=== PATIENT | male | born 1955 | race Caucasian/White ===

== ENCOUNTER 2020-04-10 12:53 | Outpatient (REF) | payer MEDICARE, MEDICAID, SELFPAY ==
--- NOTE | 2020-04-10 13:17 | XR_ITS ---
EXAMINATION: XR HIP, RIGHT Pelvis CLINICAL INFORMATION: Pain in the right hip COMPARISON: None TECHNIQUE: 2 views of the right hip and single view the pelvis FINDINGS: Right hip: Femoral acetabular joint is normal. Surrounding bone normal. Arterial calcification. Pelvis: The remaining bone and joints in the pelvis are normal. Arterial calcification is noted throughout. Surgical clips overlie the soft tissues distal to the left hip joint. XR/XR hip RT w PEL1V IMPRESSION: Right hip joint within normal limits. Bony pelvis unremarkable. Calcific atherosclerotic disease.
[2020-04-10 17:05] LABS: Blood Urea Nitrogen 27 mg/dL (9-16); Estimated Glomerular Filt Rate 55
== END 2020-04-10 12:54 | disposition home or self-care (01) ==
LOC: HO.HMGCX 12:53
PROVIDERS: PCP Internal Medicine; Visit Provider Nurse Practitioner Family
DX: M25.551 Pain in right hip (principal); R10.30 Lower abdominal pain, unspecified
CPT/HCPCS: 36415; 73502; 82565; 84520

== ENCOUNTER 2020-04-11 10:27 | Outpatient (REF) | payer MEDICARE, MEDICAID, SELFPAY ==
--- NOTE | 2020-04-11 10:29 | CT_ITS ---
EXAMINATION: CT ABDOMEN AND PELVIS WITHOUT CONTRAST CLINICAL INFORMATION: Lower abdominal pain COMPARISON: None TECHNIQUE: Multidetector volumetric imaging was performed from the superior aspect of the liver through the pubic symphysis. Sagittal and coronal reformatted images were obtained on the technologist's workstation. This CT examination was performed using dose optimization techniques as appropriate, variously including the following: *Automated exposure control *Adjustment of mA and/or kV according to patient size (this includes techniques or standardized protocols for targeted exams where dose is matched to indication/reason for exam; i.e. extremities or head) *Use of iterative reconstruction technique DLP: 6-0 mGy-cm FINDINGS: LUNG BASES: There is a 3 mm peripheral or subpleural left lower lobe nodule axial image 10 series 3. The lung bases are otherwise clear. LIVER, GALLBLADDER, AND BILIARY TREE: The liver is cirrhotic. There is a 5 mm low-attenuation lesion in the peripheral right lobe of the liver axial image 23 series. There are gallstones in the gallbladder. There is no biliary duct dilatation. PANCREAS: Unremarkable. SPLEEN: The spleen is enlarged measuring 15 cm in length. ADRENAL GLANDS: Unremarkable. KIDNEYS AND URETERS: There are multiple bilateral renal cysts. Largest cyst measures 4 x 5 cm in the upper pole of the left kidney. There are bilateral renal calcifications probably representing vascular calcifications. There is question of a small right renal artery aneurysm in the renal hilum measuring 1 cm. BLADDER: Unremarkable. GASTROINTESTINAL TRACT: The small and large bowel are unremarkable. The appendix is unremarkable. ABDOMINAL WALL: No significant hernia is appreciated. LYMPH NODES: No enlarged lymph nodes are seen. There is shotty retroperitoneal lymphadenopathy in the abdomen and pelvis and bilateral inguinal lymphadenopathy, left greater than right. VASCULAR: There are multiple varices. There is evidence of severe atherosclerotic disease. There is ectasia of the lower abdominal aorta measuring 2.6 cm. There is ectasia or small aneurysm of the right common iliac artery measuring 1.8 cm. PELVIC VISCERA: Unremarkable. OSSEOUS STRUCTURES: Unremarkable. CT/CT abdomen pelvis wo con IMPRESSION: Cirrhotic-appearing liver. 5 mm low-attenuation lesion in the right lobe of the liver. Further characterization with MRI recommended. Splenomegaly and varices. No ascites. Gallstones. Severe atherosclerotic disease. Ectasia of the lower abdominal aorta. Question small aneurysms of the right common iliac and right renal arteries. Bilateral renal cysts.
== END 2020-04-11 10:28 | disposition home or self-care (01) ==
LOC: HO.CT 10:27
PROVIDERS: Visit Provider Nurse Practitioner Family
DX: R10.30 Lower abdominal pain, unspecified (principal)
CPT/HCPCS: 74176

== ENCOUNTER → 2020-09-06 13:37 | Outpatient (BNVA) | payer MEDICARE, SELFPAY | PROVIDERS: PCP Internal Medicine; Visit Provider Hospitalist | DX: J96.01 Acute respiratory failure with hypoxia (principal); J84.9 Interstitial pulmonary disease, unspecified; J44.9 Chronic obstructive pulmonary disease, unspecified; B94.8 Sequelae of other specified infectious and parasitic diseases | CPT/HCPCS: 99202 ==

== ENCOUNTER 2020-09-25 13:44 | Outpatient (REF) | payer MEDICARE, SELFPAY ==
--- NOTE | 2020-09-25 | PFT_ITS ---
Forced vital capacity and FEV1 are moderately decreased. FEV1/FVC ratio is normal. AXD99-81 is normal. MVV slightly decreased. Post bronchodilator therapy, there is no significant change. Total lung capacity and residual volume are moderately decreased. Diffusion capacity is moderately decreased. CONCLUSION: These findings are consistent with moderately severe restrictive pulmonary disorder. No evidence of any obstructive airway disorder. Clinical correlation is recommended. Moris Roberts MD MSViktoria/MODL / [phone]
== END 2020-09-25 13:45 | disposition home or self-care (01) ==
LOC: HO.RESP 13:44
PROVIDERS: PCP Internal Medicine; Visit Provider Hospitalist
DX: J96.91 Respiratory failure, unspecified with hypoxia (principal)
CPT/HCPCS: 94060; 94727; 94729

== ENCOUNTER → 2020-10-05 13:51 | Outpatient (BNVA) | payer MEDICARE, SELFPAY | PROVIDERS: PCP Internal Medicine; Visit Provider Hospitalist | DX: J84.9 Interstitial pulmonary disease, unspecified (principal); J44.9 Chronic obstructive pulmonary disease, unspecified; B94.8 Sequelae of other specified infectious and parasitic diseases | CPT/HCPCS: 99212 ==

== ENCOUNTER 2020-10-08 10:32 | Outpatient (REF) | payer MEDICARE, SELFPAY ==
[2020-10-08 11:55] LABS: Hematocrit 35.8 % (42-52); Hemoglobin 12.1 g/dl (14.0-18.0); Mean Corpuscular HGB Conc 33.8 g/dl (31.0-36.0); Mean Corpuscular Hemoglobin 30.4 pg (27.0-33.0); Mean Corpuscular Volume 89.9 fL (80-98); Mean Platelet Volume 11.9 fL (9.4-12.4); Red Blood Count 3.98 X10*6/uL (4.60-5.80); Red Cell Distribution Width 14.1 % (11.0-16.0); White Blood Count 2.9 X10*3/uL (4.8-10.8)
[2020-10-08 12:28] LABS: Alanine Aminotransferase 46 U/L (0-40); Albumin Level 3.6 g/dL (3.5-5.0); Alkaline Phosphatase 159 U/L (39-117); Anion Gap 11 (12-20); Aspartate Amino Transferase 38 U/L (5-37); Bilirubin Total 1.1 mg/dL (0.0-1.0); Blood Urea Nitrogen 19 mg/dL (9-16); Calcium 9.1 mg/dL (8.4-10.2); Carbon Dioxide 26 mmol/L (22-29); Chloride 107 mmol/L (96-108); Cholesterol 122 mg/dL; Estimated Glomerular Filt Rate > 60; Glucose Fasting 126 mg/dL (60-99); HDL Cholesterol 33 mg/dL; LDL Cholesterol Calculated 72 mg/dl; Potassium 4.1 mmol/L (3.3-5.1); Sodium 140 mmol/L (135-145); Total Protein 6.5 g/dL (6.5-8.0); Triglycerides 89 mg/dL
[2020-10-08 13:39] LABS: Platelet Count 47 X10*3/uL (160-400)
== END 2020-10-08 10:33 | disposition home or self-care (01) ==
LOC: HO.HMGCLDS 10:32
PROVIDERS: PCP Internal Medicine; Visit Provider Internal Medicine
DX: I73.9 Peripheral vascular disease, unspecified (principal); I10 Essential (primary) hypertension; E78.5 Hyperlipidemia, unspecified; F32.9 Major depressive disorder, single episode, unspecified; K74.60 Unspecified cirrhosis of liver; S22.49XA Multiple fractures of ribs, unspecified side, initial encounter for closed fracture; S92.901A Unspecified fracture of right foot, initial encounter for closed fracture; X58.XXXA Exposure to other specified factors, initial encounter; Y93.9 Activity, unspecified; Y92.9 Unspecified place or not applicable; Y99.9 Unspecified external cause status
CPT/HCPCS: 36415; 80053; 80061; 85027

== ENCOUNTER 2020-10-12 13:22 | Outpatient (REF) | payer OTHER, SELFPAY ==
--- NOTE | ~2020-10-12 | XR_ITS ---
EXAMINATION: XR CHEST CLINICAL INFORMATION: Interstitial pulmonary disease. COMPARISON: None TECHNIQUE: 2 views of the chest were obtained. FINDINGS: The lungs are somewhat expanded with increase interstitial markings. No consolidation or pleural effusion seen. The heart size and pulmonary vascular are normal. No gross bony abnormality seen. XR/XR chest 2V IMPRESSION: Prominent interstitial markings likely interstitial pneumonitis or mild congestion.
== END 2020-10-12 13:23 | disposition home or self-care (01) ==
LOC: HO.XRAY 13:22
PROVIDERS: PCP Internal Medicine; Visit Provider Hospitalist
DX: B94.8 Sequelae of other specified infectious and parasitic diseases (principal); J84.9 Interstitial pulmonary disease, unspecified; J44.9 Chronic obstructive pulmonary disease, unspecified
CPT/HCPCS: 71046

== ENCOUNTER → 2021-01-01 14:00 | Outpatient (BNVA) | payer OTHER, SELFPAY | PROVIDERS: PCP Internal Medicine; Visit Provider Hospitalist | DX: J84.9 Interstitial pulmonary disease, unspecified (principal); J44.9 Chronic obstructive pulmonary disease, unspecified; B94.8 Sequelae of other specified infectious and parasitic diseases | CPT/HCPCS: 90686; 99212 ==

== ENCOUNTER 2021-03-11 10:46 | Outpatient (REF) | payer OTHER, SELFPAY | END 2021-03-11 10:47 | disposition home or self-care (01) | LOC: HO.LAB 10:46 | PROVIDERS: PCP Internal Medicine; Visit Provider Nurse Practitioner Family | DX: M54.50 Low back pain, unspecified (principal); M47.816 Spondylosis without myelopathy or radiculopathy, lumbar region; M51.36 Other intervertebral disc degeneration, lumbar region; M46.1 Sacroiliitis, not elsewhere classified; I10 Essential (primary) hypertension | CPT/HCPCS: 99202 ==

== ENCOUNTER → 2021-03-25 09:40 | Outpatient (REF) | payer OTHER, SELFPAY ==
--- NOTE | 2021-03-25 10:45 | ECG_ITS ---
Test Reason : Z91.89 Blood Pressure : / mmHG Vent. Rate : 069 BPM Atrial Rate : 069 BPM P-R Int : 112 ms QRS Dur : 122 ms QT Int : 446 ms P-R-T Axes : 054 -08 036 degrees QTc Int : 477 ms Normal sinus rhythm Possible Left atrial enlargement Right bundle branch block Abnormal ECG No previous ECGs available Referred By: Dominga Murphy Electronically Signed By:Param Rawls
== END ==
LOC: HO.CARD 09:40
PROVIDERS: PCP Internal Medicine; Visit Provider Nurse Practitioner Family
DX: I45.10 Unspecified right bundle-branch block (principal); I10 Essential (primary) hypertension; E78.5 Hyperlipidemia, unspecified; M46.1 Sacroiliitis, not elsewhere classified; M51.36 Other intervertebral disc degeneration, lumbar region; M54.50 Low back pain, unspecified; M47.816 Spondylosis without myelopathy or radiculopathy, lumbar region; Z91.89 Other specified personal risk factors, not elsewhere classified; Z83.3 Family history of diabetes mellitus; Z88.6 Allergy status to analgesic agent; Z88.8 Allergy status to other drugs, medicaments and biological substances
CPT/HCPCS: 93005; 99212

== ENCOUNTER 2021-04-16 09:40 | Outpatient (REF) | payer OTHER, SELFPAY ==
[2021-04-16 11:33] LABS: Estimated Average Glucose 117 mg/dL; Hemoglobin A1c % 5.7 %
[2021-04-16 12:14] LABS: Alanine Aminotransferase 32 U/L (0-40); Albumin Level 3.5 g/dL (3.5-5.0); Alkaline Phosphatase 152 U/L (39-117); Anion Gap 10 (12-20); Aspartate Amino Transferase 44 U/L (5-37); Bilirubin Total 1.6 mg/dL (0.0-1.0); Blood Urea Nitrogen 24 mg/dL (9-16); Calcium 8.9 mg/dL (8.4-10.2); Carbon Dioxide 30 mmol/L (22-29); Chloride 106 mmol/L (96-108); Cholesterol 99 mg/dL; Estimated Glomerular Filt Rate 41; Glucose Fasting 112 mg/dL (60-99); HDL Cholesterol 24 mg/dL; LDL Cholesterol Calculated 55 mg/dl; Potassium 4.7 mmol/L (3.3-5.1); Sodium 141 mmol/L (135-145); Total Protein 6.6 g/dL (6.5-8.0); Triglycerides 104 mg/dL
[2021-04-16 12:19] LABS: Creatinine Urine 212.06 mg/dL
[2021-04-16 12:37] LABS: Microalbum/Creatinine Ratio Ur 344.2 ug/mg cr
[2021-04-16 13:21] LABS: Free T4 (Free Thyroxine) 0.76 ng/dL (0.71-1.85)
== END 2021-04-16 09:41 | disposition home or self-care (01) ==
LOC: HO.LAB 09:40
PROVIDERS: Absent Provider Internal Medicine; PCP Internal Medicine; Visit Provider Nurse Practitioner Family
DX: Z00.00 Encounter for general adult medical examination without abnormal findings (principal); M46.1 Sacroiliitis, not elsewhere classified; M51.36 Other intervertebral disc degeneration, lumbar region; M54.50 Low back pain, unspecified; M47.816 Spondylosis without myelopathy or radiculopathy, lumbar region; I45.10 Unspecified right bundle-branch block; Z91.89 Other specified personal risk factors, not elsewhere classified
CPT/HCPCS: 36415; 80053; 80061; 82043; 83036; 84439; 84443; 99212

== ENCOUNTER → 2021-05-13 09:00 | Outpatient (BNVA) | payer OTHER, SELFPAY | PROVIDERS: PCP Internal Medicine; Visit Provider Nurse Practitioner Family | DX: Z51.81 Encounter for therapeutic drug level monitoring (principal); F11.20 Opioid dependence, uncomplicated; M51.36 Other intervertebral disc degeneration, lumbar region; M54.50 Low back pain, unspecified; M47.816 Spondylosis without myelopathy or radiculopathy, lumbar region | CPT/HCPCS: 99212 ==

== ENCOUNTER → 2021-06-10 09:12 | Outpatient (BNVA) | payer OTHER, SELFPAY | PROVIDERS: PCP Internal Medicine; Referring Provider Internal Medicine; Visit Provider Internal Medicine | DX: Z51.81 Encounter for therapeutic drug level monitoring (principal); F11.20 Opioid dependence, uncomplicated; M51.36 Other intervertebral disc degeneration, lumbar region; M54.50 Low back pain, unspecified; M47.816 Spondylosis without myelopathy or radiculopathy, lumbar region; I45.10 Unspecified right bundle-branch block; I73.9 Peripheral vascular disease, unspecified; R07.2 Precordial pain | CPT/HCPCS: 99202; 99212 ==

== ENCOUNTER → 2021-07-24 09:25 | Outpatient (REF) | payer OTHER, SELFPAY ==
--- NOTE | ~2021-07-24 | NM_ITS ---
Lexiscan Myocardial perfusion study Indication: Chest pain, abnormal EKG Technique: The patient was brought in for a Lexiscan perfusion study on 07/24/2021 and was injected 0.4 mg of Lexiscan intravenously. Within a minute of this injection 30 mCi of sestamibi was given intravenously. Images were obtained using the SPECT gamma camera interlaced with the gating device. Images were obtained in supine position. Resting perfusion study was performed on 07/26/2021. Patient was administered 30 mCi of sestamibi intravenously at rest. Images were then obtained in supine position. Total DLP 106mGy-cm. Images were processed with the software and compared side to side in short axis, horizontal long axis and vertical long axis views. Findings: Raw acquisition reviewed. The stress perfusion study showed 07/24/2021. The gated study shows normal LV systolic function with calculated LVEF of 66%. LV cavity is normal in size. The gated study shows normal wall thickening and contraction of segments. Resting study shows 07/26/2021. Gating at rest reveals normal wall motion with ejection fraction at 67%. The findings are consistent with no reversible or fixed perfusion defects. NM/NM cardiolite stress test Impression: 1. Myocardial perfusion imaging study shows normal myocardial perfusion. 2. Gated LVEF is 66% during stress and 67% during rest. 3. Transient ischemic dilatation not present. EKG component of the test reported separately.
--- NOTE | 2021-07-24 09:28 | CA_ITS ---
Acquisition Time: 2021-07-24 09:29:48 Total Exercise Time: 00:02:00 Test Indications: Abnormal ECG Medications: NSAIDS TYLENOL LOSARTAN Protocol: LEXISCAN Max HR: 065 BPM 41% of Pred: 156 BPM Max BP: 122/070 mmHG Max Work Load: 1.0 METS Pharmacological stress test with Lexiscan injection, while sitting and kicking his legs, without anginal symptoms, without arrythmia, with normotensive response to injection, with nondiagnostic EKG for ischemia. Nuclear images pending. Test reviewed with Dr Coffman. Referred By: Anthony Coffman Overread By: JAGUAR BLACK
== END ==
LOC: HO.CARD 09:25
PROVIDERS: PCP Internal Medicine; Visit Provider Internal Medicine
DX: R07.2 Precordial pain (principal)
CPT/HCPCS: 78452; 93017; A9500; J0280; J2785

== ENCOUNTER → 2021-09-05 12:10 | Outpatient (REF) | payer OTHER, SELFPAY ==
--- NOTE | 2021-09-05 12:13 | CA_ITS ---
Transthoracic Echocardiogram Patient (Last, First, Middle): Lucien Rowland, Gender: Male Date of : 1955 Age: 65 Procedure Date: 09/05/2021 Procedure Type: Transthoracic Echocardiogram Location: OP Height: 175.26 cm Weight: 95.26 kg BSA: 2.11 m2 Heart Rate: bpm BP: 135 / 80 mmHg Load Mixer: TO Referring MD: Anthony Coffman MD Symptoms: R07.2 - Precordial pain Study Quality: Fair ECG Rhythm: Sinus Conclusions: - The left ventricular systolic function is normal. The calculated ejection fraction is 64% by biplane method. - Evidence suggests grade II (moderate) diastolic dysfunction. - The left atrium is severely dilated. - There is mild calcification of the aortic valve. - There is moderate mitral annular calcification. - There is mild to moderate tricuspid valve regurgitation. - Moderate pulmonary hypertension is present. Findings Left Ventricle Normal left ventricular cavity size. There is mildly increased left ventricular wall thickness. The left ventricular systolic function is normal. The calculated ejection fraction is 64% by biplane method. There is no evidence of regional wall motion abnormalities. E/E prime ratio is >15, consistent with elevated filling pressures. Evidence suggests grade II (moderate) diastolic dysfunction. There is moderate septal asymmetric hypertrophy. Right Ventricle Normal right ventricular cavity size and systolic function. Atria The left atrium is severely dilated. The right atrium is normal in size. Aortic Valve There is a normal trileaflet aortic valve. There is mild calcification of the aortic valve. There is no aortic valve stenosis. There is no aortic valve regurgitation. Mitral Valve There is moderate mitral annular calcification. There is trace mitral valve regurgitation. Mean gradient of 4 mm Hg across the mitral valve at 61/Min. Cannot exclude mild mitral stenosis. Pulmonic Valve The pulmonic valve is likely normal. There is trace to mild pulmonic valve regurgitation. Tricuspid Valve Normal tricuspid valve structure. There is mild to moderate tricuspid valve regurgitation. The right ventricular systolic pressure is 59 mmHg. Moderate pulmonary hypertension is present. Great Vessels The asc aorta is normal in size. Venous The inferior vena cava is dilated and collapses less than 50% with inspiration. Pericardium/Pleural There is no evidence of pericardial effusion. Prior Study Comparison Changes noted compared to prior study dated: 04/30/2018. Progression of diastolic dysfunction. Increase in atrial size. Pulmonary hypertension present. Measurements 2D Linear Measurements IVSd: 1.41 0.6-0.9/0.6-1.0 cm LVIDd: 4.20 3.9-5.3/4.2-5.9 cm LVIDd Index: 1.99 2.4-3.2/2.2-3.1 cm/m2 LVIDs: 2.96 2.0-3.6 cm LVPWd: 1.07 0.7-1.1 cm LA Diam: 4.70 2.7-3.8/3.0-4.0 cm LAIDs Index: 2.23 1.5-2.3 cm/m2 LV Mass: 232.95 67-162/88-224 g LV Mass Index: 110.40 43-95/49-115 g/m2 LVOT Diam: 2.30 3.0+(-)1.3 cm 2D Systolic Function EF 4C: 62.70 >55% EF 2C: 63.50 >55% EF BiP: 63.60 >55% Mitral Valve MV VTI: 0.53 MV Pk Paxton: 1.51 MV Mn Paxton: 0.86 MV Pk Grad: 9.00 MV Mn Grad: 4.00 MV Pk E: 1.34 MV PK A: 1.16 MV Decel Time: 319.00 E/A: 1.20 E'Lateral: 6.42 E'Medial: 6.31 E/E' Med: 21.20 E/E' Lat: 20.90 PHT: 93.00 MVA PHT: 2.37 MVA Continuity: 2.22 Decel Peach: 4.20 Aortic Valve AoV Pk Paxton: 1.64 AoV Mn Paxton: 1.10 AoV VTI: 0.39 AoV Pk Grad: 11.00 Aov Mn Grad: 5.00 TUSHAR Cont.VTI: 2.97 LVOT LVOT Pk Paxton: 1.21 LVOT Mn Paxton: 0.75 LVOT VTI: 0.28 LVOT Pk Grad: 6.00 LVOT Mn Grad: 3.00 LVOT Diam: 2.30 LVOT Area: 4.15 Diastolic Function MV Pk E: 1.34 MV Pk A: 1.16 E/A: 1.20 E'Medial: 6.31 E/E' Med: 21.20 E' Laterial: 6.42 E/E' Lat: 20.90 Right Ventricle TAPSE (mm): 28.20 TVS' Paxton: 13.20 Tricuspid Valve TR Pk Paxton: 3.33 TR Pk Grad: 44.00 RA Press: 15.00 RVSP: 59.00 Great Vessels Aorta Sinus of Valsalva: 2.30 2.0-3.[address] Ridge: 2.75 1.7-3.4 cm Ao Asc: 3.60 2.1-3.[address] Pk Paxton: 1.60 Updated in Other Vendor System with Status of Final Anthony Coffman MD electronically signed on 09/07/2021 11:45:48 AM with status of Final
== END ==
LOC: HO.CARD 12:10
PROVIDERS: PCP Internal Medicine; Visit Provider Internal Medicine
DX: R07.2 Precordial pain (principal)
CPT/HCPCS: 93306

== ENCOUNTER → 2021-09-10 12:32 | Outpatient (BNVA) | payer OTHER, SELFPAY | PROVIDERS: PCP Internal Medicine; Referring Provider Internal Medicine; Visit Provider Nurse Practitioner Family | DX: R07.2 Precordial pain (principal); I45.10 Unspecified right bundle-branch block; I10 Essential (primary) hypertension; I73.9 Peripheral vascular disease, unspecified; E78.5 Hyperlipidemia, unspecified; Z79.82 Long term (current) use of aspirin; Z79.899 Other long term (current) drug therapy | CPT/HCPCS: 99212 ==

== ENCOUNTER 2021-09-18 12:37 | Outpatient (REF) | payer OTHER, SELFPAY ==
[2021-09-18 13:59] LABS: Hematocrit 33.9 % (42.0-52.0); Hemoglobin 11.7 g/dl (14.0-18.0); Mean Corpuscular HGB Conc 34.5 g/dl (31.0-36.0); Mean Corpuscular Hemoglobin 31.9 pg (27.0-33.0); Mean Corpuscular Volume 92.4 fL (80.0-98.0); Red Blood Count 3.67 X10*6/uL (4.60-5.80); Red Cell Distribution Width 15.2 % (11.0-16.0); White Blood Count 2.9 X10*3/uL (4.8-10.8)
[2021-09-18 14:01] LABS: Platelet Count 50 X10*3/uL (160-400)
[2021-09-18 14:11] LABS: Alanine Aminotransferase 26 U/L (0-40); Albumin Level 3.8 g/dL (3.5-5.0); Alkaline Phosphatase 143 U/L (39-117); Anion Gap 11 (12-20); Aspartate Amino Transferase 33 U/L (5-37); Bilirubin Total 1.2 mg/dL (0.0-1.0); Blood Urea Nitrogen 20 mg/dL (9-16); Calcium 8.9 mg/dL (8.4-10.2); Carbon Dioxide 25 mmol/L (22-29); Chloride 111 mmol/L (96-108); Cholesterol 128 mg/dL; Estimated Glomerular Filt Rate 49; Glucose Fasting 143 mg/dL (60-99); HDL Cholesterol 36 mg/dL; LDL Cholesterol Calculated 75 mg/dl; Potassium 4.9 mmol/L (3.3-5.1); Sodium 142 mmol/L (135-145); Total Protein 6.8 g/dL (6.5-8.0); Triglycerides 85 mg/dL
[2021-09-18 14:13] LABS: Estimated Average Glucose 108 mg/dL; Hemoglobin A1c % 5.4 %
== END 2021-09-18 12:38 | disposition home or self-care (01) ==
LOC: HO.HMGCLDS 12:37
PROVIDERS: PCP Internal Medicine; Visit Provider Internal Medicine
DX: I12.9 Hypertensive chronic kidney disease with stage 1 through stage 4 chronic kidney disease, or unspecified chronic kidney disease (principal); N18.4 Chronic kidney disease, stage 4 (severe); K74.60 Unspecified cirrhosis of liver
CPT/HCPCS: 36415; 80053; 80061; 83036; 85027

== ENCOUNTER 2022-04-14 09:13 | Outpatient (REF) | payer OTHER, SELFPAY ==
[2022-04-14 12:07] LABS: Estimated Average Glucose 108 mg/dL; Hemoglobin A1c % 5.4 %
[2022-04-14 12:20] LABS: Microalbum/Creatinine Ratio Ur 165.9 ug/mg cr
[2022-04-14 12:30] LABS: Alanine Aminotransferase 44 U/L (0-40); Albumin Level 3.6 g/dL (3.5-5.0); Alkaline Phosphatase 159 U/L (39-117); Anion Gap 10 (12-20); Aspartate Amino Transferase 45 U/L (5-37); Bilirubin Total 1.5 mg/dL (0.0-1.0); Blood Urea Nitrogen 20 mg/dL (9-16); Calcium 8.7 mg/dL (8.4-10.2); Carbon Dioxide 25 mmol/L (22-29); Chloride 111 mmol/L (96-108); Cholesterol 96 mg/dL; Estimated Glomerular Filt Rate 51; Glucose Fasting 133 mg/dL (60-99); HDL Cholesterol 23 mg/dL; LDL Cholesterol Calculated 50 mg/dl; Potassium 4.1 mmol/L (3.3-5.1); Sodium 142 mmol/L (135-145); Total Protein 6.5 g/dL (6.5-8.0); Triglycerides 118 mg/dL
== END 2022-04-14 09:14 | disposition home or self-care (01) ==
LOC: HO.HMGCLDS 09:13
PROVIDERS: PCP Internal Medicine; Visit Provider Internal Medicine
DX: D61.818 Other pancytopenia (principal); E78.5 Hyperlipidemia, unspecified; I10 Essential (primary) hypertension; R73.9 Hyperglycemia, unspecified
CPT/HCPCS: 36415; 80053; 80061; 82043; 83036

== ENCOUNTER 2022-10-13 09:42 | Outpatient (AMB) | payer MEDICARE, MEDICAID, SELFPAY ==
[2022-10-13 10:01] VITALS: BP 114/66; PULSE 58; O2SAT 97; BMI 33.2
--- NOTE | 2022-10-13 10:01 | A.OFFPC_ITS ---
Vital Signs 10/13/22 10:01 Height 5 ft 9 in Weight 225 lb BMI 33.2 BP 114/66 Blood Pressure Location Rt brachial Position Sitting Pulse 58 Pulse Source Pulse Oximeter Pulse Oximetry (%) 97 Oxygen Delivery Method Room Air Intake Visit Reasons: PE Intake Note: Pt is here today for PE. Pt states that he has been getting headaches and feeling dizzy. Pt also states that he gets pain in his lower back. Allergies acetaminophen [Tylenol] Allergy (Severe, Verified 10/13/22 10:09) Rash and Hives losartan Allergy (Severe, Verified 10/13/22 10:09) Rash and Hives Motrin Allergy (Severe, Uncoded 10/13/22 10:09) Rash and Hives Medication List - Last Reconciled 10/13/22 by Suzna Briscoe MD albuterol sulfate 90 mcg/actuation 1 inh inhalation QID PRN allopurinol 300 mg PO DAILY amlodipine 5 mg PO DAILY aspirin (Adult Aspirin Regimen) 81 mg PO DAILY atorvastatin 20 mg PO DAILY cane As directed citalopram 40 mg PO DAILY docusate sodium (Colace) 100 mg PO DAILY metoprolol tartrate 150 mg (1.5 x 100 mg) PO BID omeprazole 20 mg PO DAILY rifaximin 550 mg PO BID Tobacco use date assessed: 10/13/22 Dental Screening Dental Screen Date: 10/13/22 Did you have a dental visit in the last 12 months?: Yes Did you have a dental problem in the last 6 months where you did not have access to dental care?: No Was dental information given to patient?: Patient has dentist HPI PE HPI Details Pt presents for PE. Pt c/o positional vertigo and headache for 2 weeks. Pt was found to have 2 new masses on the liver and f/u with GI re: liver tranplant. 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 PVD (peripheral vascular disease) Respiratory failure with hypoxia Ribs, multiple fractures Surgical History H/O colonoscopy History of esophagogastroduodenoscopy (EGD) History of surgery on wrist Family History Father Diabetes mellitus Mother Diabetes mellitus Social History Household Members: Other Household Members Other:: friend Housing: Apartment Patient Tobacco Use Status: Former Tobacco user Tobacco use type: Cigarette e-Cigarette/Vaping Use: Never Used service: No Current occupational status: disabled Cognitive needs: No Hearing needs: No Vision needs: Yes Questionnaire Thrive Questionnaire Date Thrive assessed: 04/14/22 JUAN-7 AMB Questionnaire JUAN-7 Date JUAN - 7 assessed: 04/14/22 Source: Developed by Drs. Eric Fernando, Maame Bansal, Ousmane Bassett and colleagues, with an educational sandro from [employer]. Review of Systems Const All systems reviewed & are unremarkable except as noted in HPI and below Reports no additional complaints Eyes Reports no additional complaints ENT Reports no additional complaints Card Reports no additional complaints Resp Reports no additional complaints GI Reports no additional complaints Reports no additional complaints Physical exam (Primary Care) Vital Signs: Last Vital Signs Pulse 58 10/13/22 10:01 BP 114/66 10/13/22 10:01 Pulse Ox 97 10/13/22 10:01 Oxygen Delivery Method Room Air 10/13/22 10:01 BMI result Body Mass Index 33.2 Tobacco/Smoking Status: Tobacco use Status Tobacco use date assessed 10/13/22 10/13/22 10:12 Patient Tobacco Use Status Former Tobacco user 10/13/22 10:03 Tobacco use type Cigarette 10/13/22 10:03 e-Cigarette/Vaping Use Never Used 10/13/22 10:03 Thrive Assessment: Date of Thrive Assessment Date Thrive assessed 04/14/22 10/13/22 10:03 Const General: no acute distress HENMT Head: Yes normal to inspection Ears: hearing grossly normal bilaterally Face and sinus: Yes normal facial exam Mouth: Normal oral and palatal mucosa present Throat: Yes posterior oropharynx normal Eyes General: appearance normal, both eyes and all related structures Neck Neck: Yes no lymphadenopathy and Yes supple Resp Effort & Inspection: normal respiratory effort Auscultation: clear to auscultation bilaterally Cardio Rhythm: regular rhythm Heart sounds: S1 normal heart sound present and S2 normal heart sound present GI Inspection: Yes normal to inspection Palpation (GI): Soft to palpation Percussion: Yes normal to percussion Auscultation: normal bowel sounds Assessment and Plan Assessment & Plan (1) Hyperglycemia: Code(s): R73.9 - Hyperglycemia, unspecified Plan: cont ADA diet, check A1C (2) Annual physical exam: Code(s): Z00.00 - Encounter for general adult medical examination without abnormal findings Plan: well balanced diet, regular exercise, (3) Asthma-COPD overlap syndrome: Comment: Mild albuterol p.r.n. Code(s): J44.9 - Chronic obstructive pulmonary disease, unspecified (4) Chronic kidney disease, stage 4 (severe): Comment: f/u with nephrology Code(s): N18.4 - Chronic kidney disease, stage 4 (severe) (5) Liver cirrhosis: Comment: etho, ex IVDA, MRI abd 08/2022 2 liver masses, f/u GI, ?liver transplant Code(s): K74.60 - Unspecified cirrhosis of liver (6) Hypertension: Code(s): I10 - Essential (primary) hypertension Plan: cont Amlodipine (7) Vertigo: Code(s): R42 - Dizziness and giddiness Plan: try Meclizine, if persist vestibular therapy Orders: Orders Comprehensive [place]. Panel Fast Today I10 - Essential (primary) hypertension, J44.9 - Chronic obstructive pulmonary disease, unspecified, K74.60 - Unspecified cirrhosis of liver, N18.4 - Chronic kidney disease, stage 4 (severe), R73.9 - Hyperglycemia, unspecified, Z00.00 - Encounter for general adult medical examination without abnormal findings Complete Blood Count Auto Diff Today I10 - Essential (primary) hypertension, J44.9 - Chronic obstructive pulmonary disease, unspecified, K74.60 - Unspecified cirrhosis of liver, N18.4 - Chronic kidney disease, stage 4 (severe), R73.9 - Hyperglycemia, unspecified, Z00.00 - Encounter for general adult medical examination without abnormal findings IRON PROFILE Today I10 - Essential (primary) hypertension, J44.9 - Chronic obstructive pulmonary disease, unspecified, K74.60 - Unspecified cirrhosis of liver, N18.4 - Chronic kidney disease, stage 4 (severe), R73.9 - Hyperglycemia, unspecified, Z00.00 - Encounter for general adult medical examination without abnormal findings Hemoglobin A1c Today I10 - Essential (primary) hypertension, J44.9 - Chronic obstructive pulmonary disease, unspecified, K74.60 - Unspecified cirrhosis of liver, N18.4 - Chronic kidney disease, stage 4 (severe), R73.9 - Hyperglycemia, unspecified, Z00.00 - Encounter for general adult medical examination without abnormal findings Ammonia Today I10 - Essential (primary) hypertension, J44.9 - Chronic obstructive pulmonary disease, unspecified, K74.60 - Unspecified cirrhosis of liver, N18.4 - Chronic kidney disease, stage 4 (severe), R73.9 - Hyperglycemia, unspecified, Z00.00 - Encounter for general adult medical examination without abnormal findings Medications: New meclizine 25 mg PO BID PRN 30 tabs 0RF dizziness Discontinued meloxicam Discontinued Reason: Doctor's Order 15 mg PO DAILY 14 tabs 0RF Coding Level of Care Code Est Pt Prev Care >65y(24734) Diagnoses Hyperglycemia R73.9 Annual physical exam Z00.00 Asthma-COPD overlap syndrome J44.9 Chronic kidney disease, stage 4 (severe) N18.4 Liver cirrhosis K74.60 Hypertension I10 Vertigo R42
== END 2022-10-13 11:05 | disposition home or self-care (01) ==
PROVIDERS: PCP Internal Medicine; Visit Provider Internal Medicine
DX: Z00.00 Encounter for general adult medical examination without abnormal findings (principal); J44.9 Chronic obstructive pulmonary disease, unspecified; N18.4 Chronic kidney disease, stage 4 (severe); K74.60 Unspecified cirrhosis of liver; R73.9 Hyperglycemia, unspecified; I12.9 Hypertensive chronic kidney disease with stage 1 through stage 4 chronic kidney disease, or unspecified chronic kidney disease; R42 Dizziness and giddiness
CPT/HCPCS: 99397

== ENCOUNTER 2022-10-17 11:50 | Outpatient (REF) | payer MEDICARE, MEDICAID, SELFPAY ==
[2022-10-17 12:14] LABS: Ammonia 92 umol/L (13-55)
[2022-10-17 13:23] LABS: Eosinophils Absolute Auto 0.1 X10*3/uL (0.0-0.4); Hemoglobin 12.2 g/dl (14.0-18.0); Lymphocytes Percent Auto 31.2 % (20-40)
[2022-10-17 13:25] LABS: Basophils Percent Auto 0.3 % (0-2); Eosinophils Percent Auto 2.7 % (0-4); Hematocrit 34.8 % (42.0-52.0); Imm Gran Abs Auto 0.03 X10*3/uL (0.00-0.03); Imm Gran Pct Auto 0.8 % (0.0-0.4); Lymphocytes Absolute Auto 1.2 X10*3/uL (1.2-4.9); Mean Corpuscular HGB Conc 35.1 g/dl (31.0-36.0); Mean Corpuscular Hemoglobin 31.4 pg (27.0-33.0); Mean Corpuscular Volume 89.7 fL (80.0-98.0); Mean Platelet Volume 11.4 fL (9.4-12.4); Monocytes Absolute Auto 0.4 X10*3/uL (0.1-1.2); Monocytes Percent Auto 11.7 % (2-11); Neutrophils Percent Auto 53.3 % (45-73); Red Blood Count 3.88 X10*6/uL (4.60-5.80)
[2022-10-17 13:27] LABS: Platelet Count 44 X10*3/uL (160-400); White Blood Count 3.8 X10*3/uL (4.8-10.8)
[2022-10-17 14:53] LABS: Alanine Aminotransferase 36 U/L (0-40); Albumin Level 3.7 g/dL (3.5-5.0); Alkaline Phosphatase 144 U/L (39-117); Anion Gap 12 (12-20); Aspartate Amino Transferase 40 U/L (5-37); Bilirubin Total 1.5 mg/dL (0.0-1.0); Blood Urea Nitrogen 26 mg/dL (9-16); Calcium 9.5 mg/dL (8.4-10.2); Carbon Dioxide 25 mmol/L (22-29); Chloride 107 mmol/L (96-108); Estimated Glomerular Filt Rate 37; Glucose Fasting 118 mg/dL (60-99); Iron 93 mcg/dL (45-160); Percent Iron Saturation 39 % (15-50); Potassium 4.5 mmol/L (3.3-5.1); Sodium 139 mmol/L (135-145); Total Iron Binding Capacity 240 mcg/dL (228-428); Total Protein 7.2 g/dL (6.5-8.0); Unsaturated Iron Binding 147 ug/dL
[2022-10-18 03:27] LABS: Estimated Average Glucose 105 mg/dL; Hemoglobin A1c % 5.3 %
== END 2022-10-17 11:51 | disposition home or self-care (01) ==
LOC: HO.LAB 11:50
PROVIDERS: PCP Internal Medicine; Visit Provider Internal Medicine
DX: Z00.00 Encounter for general adult medical examination without abnormal findings (principal); J44.9 Chronic obstructive pulmonary disease, unspecified; I12.9 Hypertensive chronic kidney disease with stage 1 through stage 4 chronic kidney disease, or unspecified chronic kidney disease; K74.60 Unspecified cirrhosis of liver; N18.4 Chronic kidney disease, stage 4 (severe); R73.9 Hyperglycemia, unspecified
CPT/HCPCS: 36415; 80053; 82140; 83036; 83540; 85025; 93005; 99212

== ENCOUNTER 2022-10-17 12:42 | Outpatient (AMB) | payer MEDICARE, MEDICAID, SELFPAY ==
--- NOTE | 2022-10-17 13:33 | A.OFFVIS_ITS ---
Intake Vital Signs 10/17/22 13:34 Height 5 ft 9 in Weight 220 lb 7.396 oz BMI 32.6 BP 115/60 Blood Pressure Location Lt brachial Position Sitting Pulse 55 Intake Visit Reasons: 1 year f/up Intake Note: 1 year f/u Unit Coordinator Required: No Allergies acetaminophen [Tylenol] Allergy (Severe, Verified 10/17/22 13:43) Rash and Hives losartan Allergy (Severe, Verified 10/17/22 13:43) Rash and Hives Motrin Allergy (Severe, Uncoded 10/13/22 10:09) Rash and Hives Medication List - Last Reconciled 10/17/22 by Lisette Yeager [employer]-C albuterol sulfate 90 mcg/actuation 1 inh inhalation QID PRN allopurinol 300 mg PO DAILY amlodipine 5 mg PO DAILY aspirin (Adult Aspirin Regimen) 81 mg PO DAILY atorvastatin 20 mg PO DAILY cane As directed citalopram 40 mg PO DAILY meclizine 25 mg PO BID PRN metoprolol tartrate 150 mg (1.5 x 100 mg) PO BID omeprazole 20 mg PO DAILY rifaximin 550 mg PO BID HPI 1 year f/up HPI Details Lucien is a 66-year-old male with past medical history of hypertension, hyperlipidemia, peripheral vascular disease, CKD, CVA 2014, right bundle branch block who presents for follow-u. Today he reports that he has a new diagnosis of liver cancer. He says he is still undergoing testing and may be having a procedure to burn the areas. He just found out 3 weeks ago when he was having some right upper quadrant discomfort. Otherwise he feels well. He has not had any chest discomfort at rest or with activity. No heart palpitations, dizziness, presyncope, syncope, falls. No PND, orthopnea or edema. He ambulates with a cane due to unsteadiness but remains active throughout the day. Taking all meds as directed. 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 PVD (peripheral vascular disease) Respiratory failure with hypoxia Ribs, multiple fractures Surgical History H/O colonoscopy History of esophagogastroduodenoscopy (EGD) History of surgery on wrist Family History Father Diabetes mellitus Mother Diabetes mellitus Social History Household Members: Other Household Members Other:: friend Housing: Apartment Patient Tobacco Use Status: Former Tobacco user Tobacco use type: Cigarette e-Cigarette/Vaping Use: Never Used service: No Current occupational status: disabled Cognitive needs: No Hearing needs: No Vision needs: Yes Review of Systems Const All systems reviewed & are unremarkable except as noted in HPI and below ENT Reports dizziness Card Denies chest pain, Denies chest pain at rest, Denies chest pain with activity, Denies rapid heart rate, Denies pedal edema, Denies edema, Denies leg edema, Denies lightheadedness, Denies palpitations, Denies dyspnea, Denies dyspnea on exertion and Denies orthopnea Resp Denies cough, Denies dyspnea and Denies dyspnea on exertion GI Details: right upper quad discomfort Denies hematochezia and Denies change in stool character Musc Denies abnormal gait, Reports limited range of motion, Reports muscle cramps, Denies muscle weakness, Denies numbness, Denies radiating pain into limb, Denies stiffness and Denies tingling Neuro Denies abnormal gait, Reports dizziness, Denies numbness and Denies tingling Endo Denies palpitations Physical Exam Vital Signs: Last Vital Signs Pulse 55 10/17/22 13:34 BP 115/60 10/17/22 13:34 BMI result Body Mass Index 32.6 Const General: cooperative, healthy appearing, comfortable and no acute distress Orientation/consciousness: patient oriented x3 Neck Neck: Yes normal visual inspection and Yes no JVD Resp Effort & Inspection: normal respiratory effort Auscultation: clear to auscultation bilaterally, no crackles, no rales, no r honchi and no wheezes Cardio Jugular venous distension: no JVD Rate: regular rate Rhythm: regular rhythm Heart sounds: S1 normal heart sound present, S2 normal heart sound present, no murmurs and no rubs GI Inspection: Yes normal to inspection Neuro General: patient oriented x3 Extrem General: Yes normal to inspection Psych Appearance: grossly normal Mental Status: mental status grossly normal Speech and movement: Normal speech and movement present Office Procedures EKG Details: Today, read by me, sinus rhythm, left axis deviation, right bundle branch block, unchanged from prior EKG, rate 55, QTC 470 milliseconds [id number], Complete Assessment & Plan Assessment & Plan (1) Precordial chest pain: Code(s): R07.2 - Precordial pain Plan: Prior evaluation for nonexertional chest discomfort. His EKG done on 03/25/2021 shows sinus rhythm with right bundle branch block. He has cardiac risk factors of prior smoking, hypertension, hyperlipidemia, obesity and peripheral vascular disease. An echocardiogram was done on 09/05/2021 showing EF 64%, grade 2 diastolic dysfunction, left atrium severely dilated, mild calcification of the aortic valve, mild mitral annular calcification, [id number] tricuspid regurgitation, moderate pulmonary hypertension. Nuclear stress test done on 07/26/2021 showing normal myocardial perfusion imaging. Today he reports no concerning chest discomfort. He describes a new finding liver cancer and is still undergoing further evaluation. EKG today is showing sinus Amrik, left axis deviation, right bundle branch block, unchanged from prior, rate 55. Ongoing cardiac risk factor modification. Signs and symptoms of heart failure reviewed with him. He has underlying history of asthma/COPD which is currently controlled. Cardiology follow-up in 1 year, sooner if needed (2) Right bundle branch block: Code(s): I45.10 - Unspecified right bundle-branch block Plan: Present on his EKG (3) Hypertension: Code(s): I10 - Essential (primary) hypertension Plan: History of hypertension. On metoprolol and amlodipine. His blood pressure is normal today, asymptomatic. Continue current meds without change. (4) PAD (peripheral artery disease): Comment: s/p stent LLE Dr. Eden Code(s): I73.9 - Peripheral vascular disease, unspecified Plan: Continue aspirin, atorvastatin. (5) Hyperlipidemia: Code(s): E78.5 - Hyperlipidemia, unspecified Plan: LDL goal is less than 70. Labs done 04/14/2022 showing LDL 50. Continue atorvastatin (6) Liver cirrhosis: Comment: etho, ex IVDA, MRI abd 08/2022 2 liver masses, f/u GI, ?liver transplant Code(s): K74.60 - Unspecified cirrhosis of liver Plan: Patient tells me he has new diagnosis of liver cancer. He is unsure of his treatment plan at this time. If he needs to undergo surgery in the near future he would be low cardiac risk. If extended period of time has gone by and surgery is then required then may need cardiac evaluation again. His next office visit is planned for 1 year from now. Coding Level of Care Code Est Pt Level 4 (22151) Diagnoses Precordial chest pain R07.2 Right bundle branch block I45.10 Hypertension I10 PAD (peripheral artery disease) I73.9 Hyperlipidemia E78.5 Liver cirrhosis K74.60 CPT Codes EKG - CPT: [id number]-[id number], Complete ([id number]) Time Spent (min) 28 Comment Chart review, documentation, interview, assess
[2022-10-17 13:34] VITALS: BP 115/60; PULSE 55; BMI 32.6
== END 2022-10-17 14:35 | disposition home or self-care (01) ==
PROVIDERS: PCP Internal Medicine; Referring Provider Internal Medicine; Visit Provider Nurse Practitioner Family
DX: R07.2 Precordial pain (principal); I45.10 Unspecified right bundle-branch block; I10 Essential (primary) hypertension; I73.9 Peripheral vascular disease, unspecified; E78.5 Hyperlipidemia, unspecified; K74.60 Unspecified cirrhosis of liver
CPT/HCPCS: 93010; 99214

== ENCOUNTER 2023-10-20 10:06 | Outpatient (AMB) | payer MEDICARE, MEDICAID, SELFPAY ==
[2023-10-20 11:04] VITALS: BP 122/70; PULSE 61; O2SAT 99; BMI 29.8
--- NOTE | 2023-10-20 11:04 | A.OFFPC_ITS ---
Vital Signs 10/20/23 11:04 Height 5 ft 9 in Weight 202 lb BMI 29.8 BP 122/70 Blood Pressure Location Lt brachial Position Sitting Pulse 61 Pulse Source Pulse Oximeter Pulse Oximetry (%) 99 Oxygen Delivery Method Room Air Intake Visit Reasons: PE Intake Note: Pt is here today for PE. Allergies acetaminophen [Tylenol] Allergy (Severe, Verified 10/20/23 11:08) Rash and Hives losartan Allergy (Severe, Verified 10/20/23 11:08) Rash and Hives Motrin Allergy (Severe, Uncoded 10/20/23 11:08) Rash and Hives Medication List - Last Reconciled 10/20/23 by Suzan Briscoe MD allopurinol 300 mg PO DAILY amlodipine 5 mg PO DAILY aspirin (Adult Aspirin Regimen) 81 mg PO DAILY atorvastatin 20 mg PO DAILY cane As directed citalopram 40 mg PO DAILY meclizine 25 mg PO BID PRN metoprolol tartrate 150 mg (1.5 x 100 mg) PO BID omeprazole 20 mg PO DAILY rifaximin 550 mg PO BID Tobacco use date assessed: 10/20/23 Fall risk assessment: No Falls in past year Last assessed Fall Risk: 10/20/23 Dental Screening Dental Screen Date: 10/20/23 Did you have a dental visit in the last 12 months?: Yes Did you have a dental problem in the last 6 months where you did not have access to dental care?: No Was dental information given to patient?: Patient has dentist HPI PE HPI Details Pt presents for PE. PFSH Medical History (Updated 10/20/23 @ 12:02 by Suzan Briscoe MD) Hyperglycemia Annual physical exam Annual physical exam Asthma-COPD overlap syndrome [id number] syndrome Chronic kidney disease, stage 4 (severe) Hypertension Foot fracture, right Ribs, multiple fractures Chronic depression PVD (peripheral vascular disease) Iron deficiency anemia Hyperlipidemia Polyp, colonic Liver cirrhosis CVA (cerebral vascular accident) Surgical History (Updated 10/20/23 @ 12:02 by Suzan Briscoe MD) History of surgery on wrist History of esophagogastroduodenoscopy (EGD) H/O colonoscopy Family History Father Diabetes mellitus Mother Diabetes mellitus Social History Household Members: Other Household Members Other:: friend Housing: Apartment Patient Tobacco Use Status: Former Tobacco user Tobacco use type: Cigarette e-Cigarette/Vaping Use: Never Used service: No Current occupational status: disabled Cognitive needs: No Hearing needs: No Vision needs: Yes Questionnaire PHQ-9 Over the last 2 weeks, how often have you been bothered by any of the following problems? 1. Little interest or pleasure in doing things: not at all 2. Feeling down, depressed, or hopeless: not at all 3. Trouble falling or staying asleep, or sleeping too much: not at all 4. Feeling tired or having little energy: not at all 5. Poor appetite or overeating: not at all 6. Feeling bad about yourself - or that you are a failure or have let yourself or your family down: not at all 7. Trouble concentrating on things, such as reading the newspaper or watching television: not at all 8. Moving or speaking so slowly that other people could have noticed. Or the opposite - being so fidgety or restless that you have been moving around a lot more than usual: not at all 9. Thoughts that you would be better off or of hurting yourself in some way: not at all Total score: 0 Depression Screening Interpretation: Negative Depression Screening Done: Yes 88257 - PHQ-9 Billing: Yes Source: Developed by Drs. Eric Fernando, Maame aBnsal, Ousmane Bassett and colleagues, with an educational sandro from [employer]. Thrive Questionnaire Date Thrive assessed: 10/20/23 I am a: Patient What is your living situation today?: I have a steady place to live Within the past 12 months, did the food you bought not last and you didn't have the money to get more?: Never true Within the past 12 months, did you worry whether your food would run out before you got money to buy more?: Never true Do you have trouble paying for medicines?: No Do you have trouble getting transportation to medical appointments?: No Do you have trouble paying your heating and electricity bill?: No Do you have trouble taking care of your child, family member or friend?: No Do you have trouble with day-to-day activities such as bathing, preparing meals, shopping, managing finances, etc.?: No Are you currently unemployed and looking for a job?: No Are you interested in more education?: No Please select the resources that you would like help with: None THRIVE Score: 0 AUDIT C Alcohol Use Questionnaire (AUDIT-C) 1. How often do you have a drink containing alcohol?: Never 3. How often do you have six or more drinks on one occasion?: Never Total Score: 0 JUAN-7 AMB Questionnaire JUAN-7 Date JUAN - 7 assessed: 10/20/23 Feeling nervous, anxious, or on edge: 0 = Not at all Not being able to stop or control worryin = Not at all Worrying too much about different things: 0 = Not at all Trouble relaxin = Not at all Being so restless that it is hard to sit still: 0 = Not at all Becoming easily annoyed or irritable: 0 = Not at all Feeling afraid as if something awful might happen: 0 = Not at all Total JUAN-7 score (0-4 normal; 5-9 mild; 10-14 moderate; 15-21 severe): 0 Source: Developed by Drs. Eric Fernando, Maame Bansal, Ousmane Bassett and colleagues, with an educational sandro from [employer]. JUAN-7 Assessment Billing JUAN-7 Assessment Tool: JUAN-7 Assessment 28477 Review of Systems Const All systems reviewed & are unremarkable except as noted in HPI and below Reports no additional complaints Eyes Reports no additional complaints ENT Reports no additional complaints Card Reports no additional complaints Resp Reports no additional complaints GI Reports no additional complaints Reports no additional complaints Physical exam (Primary Care) Vital Signs: Last Vital Signs Pulse 61 10/20/23 11:04 BP 122/70 10/20/23 11:04 Pulse Ox 99 10/20/23 11:04 Oxygen Delivery Method Room Air 10/20/23 11:04 BMI result Body Mass Index 29.8 Tobacco/Smoking Status: Tobacco use Status Tobacco use date assessed 10/20/23 10/20/23 11:13 Patient Tobacco Use Status Former Tobacco user 10/20/23 11:13 Tobacco use type Cigarette 10/20/23 11:13 e-Cigarette/Vaping Use Never Used 10/20/23 11:13 PHQ-9: PHQ-9 Score PHQ-9: Total score 0 10/20/23 11:13 Depression Screening Interpretation: Negative Thrive Assessment: Date of Thrive Assessment Date Thrive assessed 10/20/23 10/20/23 11:13 Const General: no acute distress HENMT Head: Yes normal to inspection Ears: hearing grossly normal bilaterally Face and sinus: Yes normal facial exam Throat: Yes posterior oropharynx normal Eyes General: appearance normal, both eyes and all related structures Resp Effort & Inspection: normal respiratory effort Auscultation: clear to auscultation bilaterally Cardio Rhythm: regular rhythm Heart sounds: S1 normal heart sound present and S2 normal heart sound present GI Inspection: Yes normal to inspection Palpation (GI): Soft to palpation Percussion: Yes normal to percussion Auscultation: normal bowel sounds Assessment and Plan Assessment & Plan (1) H/O colonoscopy: Comment: 09/2017, 09/[address] Allan - [facility] Code(s): Z98.890 - Other specified postprocedural states (2) Pancytopenia: Code(s): D61.818 - Other pancytopenia Plan: stable, monitor by hematology at [facility] (3) Annual physical exam: Code(s): Z00.00 - Encounter for general adult medical examination without abnormal findings Plan: Well-balanced diet regular physical activity discussed with the patient. Patient is up-to-date with colon (4) Liver cirrhosis: Comment: etho, ex IVDA, MRI abd 08/2022 2 liver masses, f/u GI, ?liver transplant Code(s): K74.60 - Unspecified cirrhosis of liver Plan: Follow-up with GI and clip and hanger attacher at [facility] (5) Hyperlipidemia: Code(s): E78.5 - Hyperlipidemia, unspecified Plan: Continue statin (6) Asthma-COPD overlap syndrome: Comment: Mild albuterol p.r.n. Code(s): J44.9 - Chronic obstructive pulmonary disease, unspecified Plan: Continue albuterol p.r.n. (7) Chronic kidney disease, stage 4 (severe): Comment: f/u with nephrology Code(s): N18.4 - Chronic kidney disease, stage 4 (severe) Plan: Follow-up with nephrology (8) Hypertension: Code(s): I10 - Essential (primary) hypertension Plan: Continue Amlodipine Medications: Refilled meclizine 25 mg PO BID PRN 30 tabs 0RF for dizziness Coding Level of Care Code Est Pt Prev Care >65y(58161) Diagnoses H/O colonoscopy Z98.890 Pancytopenia D61.818 Annual physical exam Z00.00 Liver cirrhosis K74.60 Hyperlipidemia E78.5 Asthma-COPD overlap syndrome J44.9 Chronic kidney disease, stage 4 (severe) N18.4 Hypertension I10 Additional Codes JUAN-7 Assessment Billing - JUAN-7 Assessment Tool: JUAN-7 Assessment [id number] ([id number])
== END 2023-10-20 12:07 | disposition home or self-care (01) ==
PROVIDERS: PCP Internal Medicine; Visit Provider Internal Medicine
DX: Z00.00 Encounter for general adult medical examination without abnormal findings (principal); I12.9 Hypertensive chronic kidney disease with stage 1 through stage 4 chronic kidney disease, or unspecified chronic kidney disease; N18.4 Chronic kidney disease, stage 4 (severe); J44.9 Chronic obstructive pulmonary disease, unspecified; K74.60 Unspecified cirrhosis of liver; D61.818 Other pancytopenia; Z98.890 Other specified postprocedural states; E78.5 Hyperlipidemia, unspecified
CPT/HCPCS: 99397

== ENCOUNTER 2024-02-01 12:01 | Outpatient (AMB) | payer MEDICARE, MEDICAID, SELFPAY ==
[2024-02-01 12:07] VITALS: BP 110/68; PULSE 56; O2SAT 99; BMI 30.1
--- NOTE | 2024-02-01 12:07 | MHC.PC.OV ---
Vital Signs 02/01/24 12:07 Height 5 ft 9 in Weight 204 lb BMI 30.1 BP 110/68 Blood Pressure Location Rt brachial Position Sitting Pulse 56 Pulse Source Pulse Oximeter Pulse Oximetry (%) 99 Oxygen Delivery Method Room Air Intake Visit Reasons: Pain Management Intake Note: Pt is here today for a follow up visit to discuss couple stuff with Allergies acetaminophen [Tylenol] Allergy (Severe, Verified 10/20/23 11:08) Rash and Hives losartan Allergy (Severe, Verified 10/20/23 11:08) Rash and Hives Motrin Allergy (Severe, Uncoded 10/20/23 11:08) Rash and Hives Medication List - Last Reconciled 02/01/24 by Suzan Briscoe MD allopurinol 300 mg PO DAILY amlodipine 5 mg PO DAILY aspirin (Adult Aspirin Regimen) 81 mg PO DAILY atorvastatin 20 mg PO DAILY cane As directed citalopram 40 mg PO DAILY meclizine 25 mg PO BID PRN metoprolol tartrate 50 mg (1/2 x 100 mg) PO BID omeprazole 20 mg PO DAILY rifaximin 550 mg PO BID Tobacco use date assessed: 10/20/23 Dental Screening Dental Screen Date: 10/20/23 HPI Pain Management HPI Details Pt presents for f/u hospitalization at [facility] for abd pain patient was found to have multiple gallstones but no acute cholecystitis. He was not considered to be a surgical candidate by the surgeon due to comorbidities. Patient follows up with Oncology for radiofrequency ablation for hepatocellular CA and GI for liver cirrhosis. Hypertension is controlled on current medications. The patient is established with nephrology for chronic kidney disease. [facility] Medical History Hyperglycemia Annual physical exam Annual physical exam Asthma-COPD overlap syndrome [id number] syndrome Chronic kidney disease, stage 4 (severe) Hypertension Foot fracture, right Ribs, multiple fractures Chronic depression PVD (peripheral vascular disease) Iron deficiency anemia Hyperlipidemia Polyp, colonic Liver cirrhosis CVA (cerebral vascular accident) Surgical History History of surgery on wrist History of esophagogastroduodenoscopy (EGD) H/O colonoscopy Family History Father Diabetes mellitus Mother Diabetes mellitus Social History Household Members: Other Household Members Other:: friend Housing: Apartment Patient Tobacco Use Status: Former Tobacco user Tobacco use type: Cigarette e-Cigarette/Vaping Use: Never Used service: No Current occupational status: disabled Cognitive needs: No Hearing needs: No Vision needs: Yes Questionnaire Thrive Questionnaire Date Thrive assessed: 10/20/23 JUAN-7 AMB Questionnaire JUAN-7 Date JUAN - 7 assessed: 10/20/23 Source: Developed by Drs. Eric Fernando, Maame Bansal, Ousmane Bassett and colleagues, with an educational sandro from [employer]. Review of Systems Const All systems reviewed & are unremarkable except as noted in HPI and below ENT Reports no additional complaints Card Reports no additional complaints Resp Reports no additional complaints GI Reports no additional complaints Physical exam (Primary Care) Vital Signs: Last Vital Signs Pulse 56 02/01/24 12:07 BP 110/68 02/01/24 12:07 Pulse Ox 99 02/01/24 12:07 Oxygen Delivery Method Room Air 02/01/24 12:07 BMI result Body Mass Index 30.1 Tobacco/Smoking Status: Tobacco use Status Tobacco use date assessed 10/20/23 02/01/24 12:10 Patient Tobacco Use Status Former Tobacco user 02/01/24 12:10 Tobacco use type Cigarette 02/01/24 12:10 e-Cigarette/Vaping Use Never Used 02/01/24 12:10 Thrive Assessment: Date of Thrive Assessment Date Thrive assessed 10/20/23 02/01/24 12:10 Const General: no acute distress HENMT Head: Yes normal to inspection Mouth: Normal oral and palatal mucosa present Resp Effort & Inspection: normal respiratory effort Auscultation: clear to auscultation bilaterally Cardio Rhythm: regular rhythm Heart sounds: S1 normal heart sound present and S2 normal heart sound present GI Inspection: Yes distended Palpation (GI): Soft to palpation and Tenderness to palpation present (GI) in the RUQ; with no rebound tenderness Percussion: Yes normal to percussion Auscultation: normal bowel sounds Coding Level of Care Code Est Pt Level 4 (29462) Complex EM visit Add On G2211 Diagnoses Chronic kidney disease, stage 4 (severe) N18.4 Hepatocellular carcinoma C22.0 Cholelithiasis without cholecystitis K80.20 Liver cirrhosis K74.60 Assessment & Plan Assessment & Plan (1) Chronic kidney disease, stage 4 (severe): Comment: f/u with nephrology Code(s): N18.4 - Chronic kidney disease, stage 4 (severe) Category: Medical Plan: Avoid nephrotoxins monitor kidney function follow-up with nephrology (2) Hepatocellular carcinoma: Comment: Getting radiofrequency ablation at [facility] 01/2024 Code(s): C22.0 - Liver cell carcinoma Category: Medical Plan: Established with [facility] Oncology (3) Cholelithiasis without cholecystitis: Comment: Not surgical candidate by [facility] surgery 01/2024 Code(s): K80.20 - Calculus of gallbladder without cholecystitis without obstruction Category: Medical Plan: Not a surgical candidate (4) Liver cirrhosis: Comment: etho, ex IVDA, MRI abd 08/2022 2 liver masses, f/u GI, ?liver transplant Code(s): K74.60 - Unspecified cirrhosis of liver Category: Medical Plan: Follow-up with [facility] GI Medications: Changed From metoprolol tartrate 150 mg (1.5 x 100 mg) PO BID 270 tabs 3RF To metoprolol tartrate 50 mg (1/2 x 100 mg) PO BID 90 tabs 3RF
== END 2024-02-01 13:04 | disposition home or self-care (01) ==
PROVIDERS: PCP Internal Medicine; Visit Provider Internal Medicine
DX: N18.4 Chronic kidney disease, stage 4 (severe) (principal); C22.0 Liver cell carcinoma; K80.20 Calculus of gallbladder without cholecystitis without obstruction; K74.60 Unspecified cirrhosis of liver

== ENCOUNTER → 2024-02-01 12:01 | Outpatient (BNVA) | payer MEDICARE, MEDICAID, SELFPAY | PROVIDERS: PCP Internal Medicine; Visit Provider Internal Medicine | DX: N18.4 Chronic kidney disease, stage 4 (severe) (principal); C22.0 Liver cell carcinoma; K80.20 Calculus of gallbladder without cholecystitis without obstruction; K74.60 Unspecified cirrhosis of liver | CPT/HCPCS: 99212 ==

== ENCOUNTER 2024-05-05 08:25 | Outpatient (AMB) | payer MEDICARE, MEDICAID, SELFPAY ==
[2024-05-05 08:43] VITALS: BP 110/60; PULSE 60; BMI 30.3
--- NOTE | 2024-05-05 08:43 | A.OFFVIS_ITS ---
Vital Signs 05/05/24 08:43 Height 5 ft 9 in Weight 205 lb 0.478 oz BMI 30.3 BP 110/60 Blood Pressure Location Lt brachial Position Sitting Pulse 60 Intake Visit Reasons: f/up [employer] Supervisor Required: No Accompanied by: Self / Same As Patient Allergies acetaminophen [Tylenol] Allergy (Severe, Verified 10/20/23 11:08) Rash and Hives losartan Allergy (Severe, Verified 10/20/23 11:08) Rash and Hives Motrin Allergy (Severe, Uncoded 10/20/23 11:08) Rash and Hives Medication List - Last Reconciled 05/05/24 by Anthony Coffman MD allopurinol 300 mg PO DAILY amlodipine 5 mg PO DAILY aspirin (Adult Aspirin Regimen) 81 mg PO DAILY atorvastatin 20 mg PO DAILY cane As directed citalopram 40 mg PO DAILY meclizine 25 mg PO BID PRN metoprolol tartrate 50 mg (1/2 x 100 mg) PO BID omeprazole 20 mg PO DAILY rifaximin 550 mg PO BID HPI Comments Details: Lucien returns for follow-up. In the past, he was referred because of a right bundle-branch block on the EKG. Patient himself does not have any documented cardiac issues. However, many comorbidities. There is a history of smoking as well as alcohol excess and drug use many years ago but nothing recently. He apparently had a stroke around 2013. After that, he apparently stopped smoking and alcohol excess. Otherwise, no known coronary disease, myocardial infarction or cardiomyopathy. Comorbidities listed include peripheral vascular disease, chronic liver disease/cirrhosis as well as chronic kidney disease. He is also hypertensive. [facility] Medical History Hyperglycemia Annual physical exam Annual physical exam Asthma-COPD overlap syndrome [id number] syndrome Chronic kidney disease, stage 4 (severe) Hypertension Foot fracture, right Ribs, multiple fractures Chronic depression PVD (peripheral vascular disease) Iron deficiency anemia Hyperlipidemia Polyp, colonic Liver cirrhosis CVA (cerebral vascular accident) Surgical History History of surgery on wrist History of esophagogastroduodenoscopy (EGD) H/O colonoscopy Family History Father Diabetes mellitus Mother Diabetes mellitus Social History (Updated 05/05/24 @ 08:50 by Magda Johnson CMA) Household Members: Other Household Members Other:: friend Housing: Apartment Alcohol intake: never Patient Tobacco Use Status: Former Tobacco user Tobacco use type: Cigarette e-Cigarette/Vaping Use: Never Used service: No Current occupational status: disabled Cognitive needs: No Hearing needs: No Vision needs: Yes Review of Systems Const Denies chills, Denies fatigue, Denies fever(s), Denies weight gain and Denies weight loss ENT Denies dizziness Card Denies chest pain, Denies leg edema, Denies lightheadedness, Denies palpitations, Denies dyspnea on exertion, Denies orthopnea and Denies other Resp Denies cough and Denies dyspnea on exertion GI Denies hematochezia and Denies change in stool character Musc Denies abnormal gait, Denies muscle weakness, Denies numbness, Denies radiating pain into limb and Denies tingling Neuro Denies abnormal gait, Denies dizziness, Denies numbness and Denies tingling Endo Denies fatigue and Denies palpitations Physical Exam Vital Signs: Last Vital Signs Pulse 60 05/05/24 08:43 BP 110/60 05/05/24 08:43 BMI result Body Mass Index 30.3 Const General: comfortable and no acute distress Orientation/consciousness: patient oriented x3 HEENT Other: Unremarkable Head: Yes normal to inspection Neck Neck: Yes normal visual inspection Chest Chest palpation & inspection: normal inspection of the chest Resp Auscultation: clear to auscultation bilaterally Cardio Palpation: normal PMI Heart sounds: S1 normal heart sound present, S2 normal heart sound present, no gallops, no murmurs and no rubs GI Palpation (GI): Soft to palpation Back/Spine/Pelvis Other: unremarkable Skin General skin exam: no rashes or lesions noted Neuro General: patient oriented x3 Extrem General: Yes normal to inspection Psych Mental Status: mental status grossly normal Office Procedures EKG Details: EKG with underlying sinus rhythm at 60/Min; leftward axis; right bundle-branch block pattern; [place] [address]-[id number], Complete Assessment & Plan Assessment & Plan (1) Right bundle branch block: Code(s): I45.10 - Unspecified right bundle-branch block Category: Medical (2) Mitral annular calcification: Code(s): I34.81 - Nonrheumatic mitral (valve) annulus calcification Category: Medical (3) Diastolic dysfunction: Code(s): I51.89 - Other ill-defined heart diseases Category: Medical (4) Pulmonary hypertension: Code(s): I27.20 - Pulmonary hypertension, unspecified Category: Medical Plan Cardiac studies reviewed. In the echocardiogram from 2021, LVEF 64%. Moderate diastolic dysfunction. Severely dilated left atrium. Mild aortic valve calcification. Moderate mitral annular calcification. [id number] tricuspid regurgitation. Moderate pulmonary hypertension. Myocardial perfusion imaging study from 2021 showed normal perfusion. Overall, many comorbidities, findings on echocardiogram as above but no overt cardiac symptoms. We can repeat his echocardiogram in a year to follow the valvular findings. Otherwise, risk factor modification as much able. Blood Pressure stable on amlodipine. Orders: Orders CA echo transthoracic complete 1 Year I25.10 - Atherosclerotic heart disease of [place] coronary artery without angina pectoris Medications: Refilled amlodipine 5 mg PO DAILY 90 tabs 1RF Coding Level of Care Code Est Pt Level 4 (75079) Complex EM visit Add On G2211 Diagnoses Right bundle branch block I45.10 Mitral annular calcification I34.81 Diastolic dysfunction I51.89 Pulmonary hypertension I27.20 CPT Codes EKG - CPT: 40318-[id number], Complete ([id number])
--- OUTSIDE RECORDS SUMMARY | 2024-05-05 08:50 | XMS_ITS | Clinical Summary ---
Author Organization [facility] Address [address] [place] [address] Phone Care Team Providers Care Foot Orthopedist Name Role Phone Suzan Briscoe MD Primary Care Provider [phone] Allergies Active Allergy Reactions Criticality Noted Date Comments Acetaminophen 10/29/2022 Ibuprofen 10/29/2022 Medications amLODIPine (NORVASC) 10 mg tablet Take 1 tablet (10 mg total) by mouth 1 (one) time each day. 07/06/2018 Active metoprolol succinate 50 mg capsule,sprinkl e,ER 24hr Take by mouth. Active allopurinoL (ZYLOPRIM) 300 mg tablet Take 1 tablet (300 mg total) by mouth 1 (one) time each day. Active Xifaxan 550 mg tablet Take 1 tablet (550 mg total) by mouth 2 (two) times a day. Active omeprazole (PriLOSEC) [address] capsule Take 1 capsule (20 mg total) by mouth 1 (one) time each day. Active citalopram (CeleXA) 40 mg tablet Take 1 tablet (40 mg total) by mouth 1 (one) time each day. 02/25/2024 Active aspirin 81 mg EC tablet Take 1 tablet (81 mg total) by mouth 1 (one) time each day. Active Active Problems Problem Noted Date Diagnosed Date Cancer, hepatocellular 10/01/2022 Encounters Date Type Department Care Team Description 04/26/2024 12:15 PM EST - 04/26/2024 11:59 PM EST Hospital Encounter [facility] Ultrasound [address] [place] [address] Cirrhosis of liver with ascites, unspecified hepatic cirrhosis type (CMS/HCC); Hepatocellular carcinoma (CMS/HCC) Discharge Disposition: Home or Self Care 04/14/2024 8:40 AM EST Office Visit Gastroenterology - [address] [phone] Darline Luu NP Cirrhosis of liver with ascites, unspecified hepatic cirrhosis type (CMS/HCC) (Primary Dx); Hepatocellular carcinoma (CMS/HCC) 04/14/2024 Telephone Gastroenterology - [address] [phone] Julia Velasco [place] 03/29/2024 1:15 PM EST Office Visit [facility] Hematology Oncology [address] [place] [phone] Ignacio Cohen MD Cancer, hepatocellular (CMS/HCC) (Primary Dx) from Last 3 Months Social History Tobacco Use Types Packs/Day Years Used Date Smoking Tobacco: Never Assessed Sex and Gender Information Value Date Recorded Sex Assigned at Male 04/22/2024 10:51 AM EST Legal Sex Male 3:32 PM EST Gender Identity Male 04/22/2024 10:51 AM EST Sexual Orientation Straight 04/26/2024 12 :12 PM EST Obstetrics History Last Filed Vital Signs Vital Sign Reading Time Taken Comments Blood Pressure 103/63 03/29/2024 1:08 PM EST Pulse 58 03/29/2024 1:08 PM EST Temperature 37 ??C (98.6 ??F) 03/29/2024 1:08 PM EST Respiratory Rate - - Oxygen Saturation 99% 03/29/2024 1:08 PM EST Inhaled Oxygen Concentration - - Weight 94.3 kg (208 lb) 04/14/2024 8:00 AM EST Height 175.3 cm (5' 9 ) 04/14/2024 8:00 AM EST Body Mass Index 30.72 04/14/2024 8:00 AM EST Plan of Treatment Upcoming Encounters Date Type Department Care Team ([facility] st Contact Info) Description 05/16/2024 8:00 AM EDT Office Visit Gastroenterology - [address] [phone] Darline Luu NP [address] [address] 09/26/2024 9:00 AM EDT Office Visit [facility] Hematology Oncology [address] [place] [address] Ignacio Cohen MD [address] [place] [address] Health Maintenance Due Date Last Done Comments Diabetes: Annual Foot Exam 1966 Diabetes: Annual Retina Eye Exam 1966 DTaP,Tdap,and Td Vaccines (1 - Tdap) 11/12/1975 Hepatitis A Vaccines (1 of 2 - Risk 2-dose series) 11/12/1975 Zoster Vaccines (1 of 2) 11/12/1975 RSV Immunization Patients 60+ Years Old (1 - Risk 60-74 years 1-dose series) 2016 Pneumococcal Vaccine: 50+ Years (3 of 3 - PCV) 10/13/2020 10/14/2019, 12/11/2016 Abdominal Aortic Aneurysm (AAA) Screen 02/05/2022 Cholesterol Screening (Lipid Panel) 02/05/2022 Colorectal Cancer Screening: Colonoscopy 02/05/2022 Depression Screening 02/05/2022 Falls Risk Assessment 02/05/2022 Hepatitis C Screening 02/05/2022 Medicare Annual Wellness Visit 02/05/2022 Social Influencers of Health Screening 02/05/2022 Diabetes: Annual Urine Albumin-Creatinine Ratio (uACR) 02/21/2022 Diabetes: Blood Sugar Control Test (HGBA1C) 02/21/2022 12/24/2016 COVID-19 Vaccine ( season) 2023 11/29/2020, 10/30/2020, 10/09/2020 Influenza Vaccine (#1) 2023 , 12/22/2018, 01/06/2018, Additional history exists Diabetes: Annual GFR (Glomerular Filtration Rate) 04/14/2025 04/14/2024, 01/05/2017 Hypertension/CHF/CAD Annual BMP Blood Test 04/14/2025 04/14/2024, 01/05/2017 Hepatitis B Vaccines Completed 11/04/2017, 07/20/2007, 06/17/2007 HIB Vaccines Aged Out No longer eligi ble based on patient's age to complete this topic HPV Vaccines Aged Out No longer eligi ble based on patient's age to complete this topic IPV Vaccines Aged Out No longer eligi ble based on patient's age to complete this topic MMR Vaccines Aged Out No longer eligi ble based on patient's age to complete this topic Meningococcal ACWY Vaccine Aged Out N o longer eligible based on patient's age to complete this topic Meningococcal B Vacine Aged Out No lo nger eligible based on patient's age to complete this topic RSV Immunization Patients Under 20 months Aged Out No longer eligible based on patient's age to complete this topic Varicella Vaccines Aged Out No longer eligible based on patient's age to complete this topic Procedures Procedure Name Priority Date/Time Associated Diagnosis Comments US PARACENTESIS W IMAGE GUIDANCE Routine 04/26/2024 12:57 PM EST Cirrhosis of liver with ascites, unspecified hepatic cirrhosis type (CMS/HCC) Hepatocellular carcinoma (CMS/HCC) CBC WITH AUTO DIFFERENTIAL Routine 04/14/2024 8:33 AM EST Cirrhosis of liver with ascites, unspecified hepatic cirrhosis type (CMS/HCC) Hepatocellular carcinoma (CMS/HCC) ALPHA FETOPROTEIN TUMOR MARKER Routine 04/14/2024 8:33 AM EST Cirrhosis of liver with ascites, unspecified hepatic cirrhosis type (CMS/HCC) Hepatocellular carcinoma (CMS/HCC) PROTHROMBIN TIME WITH INR Routine 04/14/2024 8:33 AM EST Cirrhosis of liver with ascites, unspecified hepatic cirrhosis type (CMS/HCC) Hepatocellular carcinoma (CMS/HCC) COMPREHENSIVE METABOLIC PANEL Routine 04/14/2024 8:33 AM EST Cirrhosis of liver with ascites, unspecified hepatic cirrhosis type (CMS/HCC) Hepatocellular carcinoma (CMS/HCC) CBC AND DIFFERENTIAL Routine 04/14/2024 8:33 AM EST Cirrhosis of liver with ascites, unspecified hepatic cirrhosis type (CMS/HCC) Hepatocellular carcinoma (CMS/HCC) ..MISCELLANEOUS REFERENCE LAB TEST 03/29/2024 HISTORICAL IMAGING SCAN RESULT 03/29/2024 HEMOGLOBIN A1C Routine 12/24/2016 from Last 3 Months or Most Recently Relevant to Health Maintenance Results * US Paracentesis w Image Guidance (04/26/2024 12:57 PM EST) Anatomical Region Laterality Modality Abdomen Ultrasound 04/26/2024 2:02 PM EST Impressions 04/26/2024 3:31 PM EST Successful paracentesis of 1.5 L of donovan-colored fluid without complications. -------- FINAL REPORT -------- Dictated By: Mellissa Martins Dictated Date: 04/26/2024 14:02 ET Assigned Physician: Corwin Madrigal Reviewed and Electronically Signed By: Corwin Madrigal Signed Date: 04/26/2024 15:31 ET Workstation ID: [id number] Transcribed By: Self Edit Transcribed Date: 04/26/2024 14:02 ET Resident/PA/SPRAY II PAINTER: Mellissa Martins Narrative 04/26/2024 3:31 PM EST HISTORY: Ascites. TECHNIQUE: After written informed consent was obtained the patient was placed supine on the ultrasound stretcher and multiple images were obtained for characterization and localization of ascites. The skin was marked, prepped and draped in the usual sterile fashion. 2% lidocaine was used as local anesthetic. A paracentesis needle was advanced under gentle suction. When fluid aspirated the paracentesis catheter was threaded over the needle into the ascitic fluid. The needle was removed and the catheter was attached to tubing and then vacuum bottles. After completion of drainage the catheter was removed and a bandage was applied. The patient tolerated the procedure well and left the department in stable condition without any immediate complications. FINDINGS: Initial ultrasound images demonstrate small to moderate volume ascites. Pocket in right lower quadrant localized for drainage. Procedure Note Corwin Madrigal MD - 04/26/2024 HISTORY: Ascites. TECHNIQUE: After written informed consent was obtained the patient wasplaced supine on the ultrasound stretcher and multiple images wereobtained for characterization and localization of ascites. The skin wasmarked, prepped and draped in the usual sterile fashion. 2% lidocaine wasused as local anesthetic. A paracentesis needle was advanced under gentlesuction. When fluid aspirated the paracentesis catheter was threaded overthe needle into the ascitic fluid. The needle was removed and the catheterwas attached to tubing and then vacuum bottles. After completion ofdrainage the catheter was removed and a bandage was applied. The patienttolerated the procedure well and left the department in stable conditionwithout any immediate complications. FINDINGS: Initial ultrasound images demonstrate small to moderate volume ascites.Pocket in right lower quadrant localized for drainage. IMPRESSION: Successful paracentesis of 1.5 L of donovan-colored fluid withoutcomplications. -------- FINAL REPORT -------- Dictated By: Mellissa Martins Dictated Date: 04/26/2024 14:02 ET Assigned Physician: Corwin Madrigal Reviewed and Electronically Signed By: Corwin Madrigal Signed Date: 04/26/2024 15:31 ET Workstation ID: [id number] Transcribed By: Self Edit Transcribed Date: 04/26/2024 14:02 ET Resident/PA/SPRAY II PAINTER: Mellissa Martins us Darline Luu NP IMG US PROCEDURES Final Resul t * (ABNORMAL) CBC auto differential (04/14/2024 8:33 AM EST) WBC 2.4(L) 4.8 - 10.8 K/mcL LAB HEMETOLOGY METHOD 04/14/2024 9:44 AM [facility] RBC 3.10(L) 4.50 - 5.50 M/mcL LAB HEMETOLOGY METHOD 04/14/2024 9:44 AM [facility] Hemoglobin 9.9(L) 13.5 - 17.5 g/dL LAB HEMETOLOGY METHOD 04/14/2024 9:44 AM [facility] Hematocrit 29.0(L) 42.0 - 54.0 % LAB HEMETOLOGY METHOD 04/14/2024 9:44 AM [facility] MCV 92.9 79.0 - 98.0 FL LAB HEMETOLOGY METHOD 04/14/2024 9:44 AM [facility] MCH 31.7 27.0 - 32.0 pcg LAB HEMETOLOGY METHOD 04/14/2024 9:44 AM [facility] MCHC 34.1 32.0 - 37.0 g/dL LAB HEMETOLOGY METHOD 04/14/2024 9:44 AM [facility] RDW 16.0(H) 11.0 - 15.0 % LAB HEMETOLOGY METHOD 04/14/2024 9:44 AM [facility] Platelets 35(L) 130 - 400 K/mcL LAB HEMETOLOGY METHOD 04/14/2024 9:44 AM [facility] Comment:reviewed by slide MPV 11.9(H) 7.0 - 11.0 FL LAB HEMETOLOGY METHOD 04/14/2024 9:44 AM [facility] NRBC 0.0 <1.0 % LAB HEMETOLOGY METHOD 04/14/2024 9:44 AM [facility] NRBC Absolute 0.00 <0.10 K/mcL LAB HEMETOLOGY METHOD 04/14/2024 9:44 AM [facility] Neutrophils Relative 49.4 % LAB HEMETOLOGY METHOD 04/14/2024 9:44 AM [facility] Lymphocytes Relative 31.8 % LAB HEMETOLOGY METHOD 04/14/2024 9:44 AM [facility] Monocytes Relative 16.3 % LAB HEMETOLOGY METHOD 04/14/2024 9:44 AM [facility] Eosinophils Relative 1.3 % LAB HEMETOLOGY METHOD 04/14/2024 9:44 AM [facility] Basophils Relative 0.4 % LAB HEMETOLOGY METHOD 04/14/2024 9:44 AM [facility] Immature Granulocytes Relative 0.8 % LAB HEMETOLOGY METHOD 04/14/2024 9:44 AM EST [facility] Neutrophils Absolute 1.18(L) 1.50 - 7.00 K/[facility] LAB HEMETOLOGY METHOD 04/14/2024 9:44 AM EST [facility] Lymphocytes Absolute 0.76(L) 1.00 - 5.00 K/mcL LAB HEMETOLOGY METHOD 04/14/2024 9:44 AM EST [facility] Monocytes Absolute 0.39 0.20 - 1.00 K/[facility] LAB HEMETOLOGY METHOD 04/14/2024 9:44 AM [facility] Eosinophils Absolute 0.03 0.00 - 0.50 K/[facility] LAB HEMETOLOGY METHOD 04/14/2024 9:44 AM EST [facility] Basophils Absolute 0.01 0.00 - 0.20 K/mcL LAB HEMETOLOGY METHOD 04/14/2024 9:44 AM [facility] Immature Granulocytes Absolute 0.02 0.00 - 0.03 K/[facility] LAB HEMETOLOGY METHOD 04/14/2024 9:44 AM [facility] Blood Venous blood specimen / Unknown Venipuncture / Unknown 04/14/2024 8:33 AM EST 04/14/2024 8:56 AM EST us Darline Luu NP LAB BLOOD ORDERABLES Final Re sult [facility] [address] [place] [address], * Alpha fetoprotein tumor marker (04/14/2024 8:33 AM EST) AFP 3.2 0.0 - 8.0 ng/mL LAB CHEMISTRY METHOD 04/14/2024 9:45 AM EST [facility] Blood Venous blood specimen / Unknown Venipuncture / Unknown 04/14/2024 8:33 AM EST 04/14/2024 8:57 AM EST Narrative [facility] - 04/14/2024 9:45 AM EST The Siemens Advia Centaur Chemiluminescent Immunoassay is used. Results obtained with different assay methods or kits cannot be used interchangeably. Results cannot be interpreted as absolute evidence of the presence or absence of malignant disease. Darline Luu NP LAB BLOOD ORDERABLES Final Re sult Performing Organization Address [facility] Co de Phone Number [facility] [address] [place] [address], [place] [phone] * (ABNORMAL) Prothrombin time with INR (04/14/2024 8:33 AM EST) Protime 16.4(H) 10.6 - 13.9 sec LAB COAGULATION METHOD 04/14/2024 9:34 AM EST [facility] INR 1.3 LAB COAGULATION METHOD 04/14/2024 9:34 AM EST [facility] Blood Venous blood specimen / Unknown Venipuncture / Unknown 04/14/2024 8:33 AM EST 04/14/2024 8:57 AM EST us Darline Luu NP LAB BLOOD ORDERABLES Final Re sult Performing Organization Address [facility] Co de Phone Number [facility] [address] [place] [address], [place] [phone] * (ABNORMAL) Comprehensive metabolic panel (04/14/2024 8:33 AM EST) Sodium 140 133 - 145 mmol/L LAB CHEMISTRY METHOD 04/14/2024 9:38 AM EST [facility] Potassium 4.4 3.5 - 5.5 mmol/L LAB CHEMISTRY METHOD 04/14/2024 9:38 AM EST [facility] Chloride 108 96 - 110 mmol/L LAB CHEMISTRY METHOD 04/14/2024 9:38 AM EST [facility] CO2 28 21 - 32 mmol/L LAB CHEMISTRY METHOD 04/14/2024 9:38 AM [facility] Anion Gap 4 3 - 11 LAB CHEMISTRY METHOD 04/14/2024 9:38 AM [facility] Glucose 115(H) 70 - 100 mg/dL LAB CHEMISTRY METHOD 04/14/2024 9:38 AM [facility] BUN 23 5 - 25 mg/dL LAB CHEMISTRY METHOD 04/14/2024 9:38 AM [facility] Creatinine 1.89(H) 0.70 - 1.30 mg/dL LAB CHEMISTRY METHOD 04/14/2024 9:38 AM [facility] eGFR 38(L) >=60 mL/min/1. 73m2 LAB CHEMISTRY METHOD 04/14/2024 9:38 AM [facility] Comment:Calculation based on the??Chronic Kidney Disease Epidemiology Collaboration (CKD-EPI) equation refit??without adjustment for race. BUN/Creatinine Ratio 12.2 LAB CHEMISTRY METHOD 04/14/2024 9:38 AM [facility] Calcium 9.0 8.5 - 10.5 mg/dL LAB CHEMISTRY METHOD 04/14/2024 9:38 AM [facility] AST (SGOT) 57(H) 10 - 42 unit/L LAB CHEMISTRY METHOD 04/14/2024 9:38 AM [facility] ALT (SGPT) 86(H) 10 - 60 unit/L LAB CHEMISTRY METHOD 04/14/2024 9:38 AM [facility] Alkaline Phosphatase 273(H) 42 - 121 unit/L LAB CHEMISTRY METHOD 04/14/2024 9:38 AM [facility] Total Protein 6.6 6.0 - 8.0 g/dL LAB CHEMISTRY METHOD 04/14/2024 9:38 AM [facility] Albumin 3.2 3.2 - 5.0 g/dL LAB CHEMISTRY METHOD 04/14/2024 9:38 AM EST [facility] Total Bilirubin 1.7(H) 0.0 - 1.4 mg/dL LAB CHEMISTRY METHOD 04/14/2024 9:38 AM EST [facility] Blood Venous blood specimen / Unknown Venipuncture / Unknown 04/14/2024 8:33 AM EST 04/14/2024 8:57 AM EST us Darline Luu SPRAY II PAINTER LAB BLOOD ORDERABLES Final Re sult [facility]) [facility] [address] [place] [address], [place] [phone] * HISTORICAL IMAGING SCAN RESULT (03/29/2024) Anatomical Region Laterality Modality Ultrasound us Provider Onbase MD IMG US PROCEDURES Final Resul t * Miscellaneous reference lab test (03/29/2024) us Provider Onbase MD LAB BLOOD ORDERABLES Final Re sult * Hemoglobin A1c (12/24/2016) Hemoglobin A1C 5.4 % Blood Venous blood specimen / Unknown us Historical Provider MD LAB BLOOD ORDERABLES Jayleen l Result from Last 3 Months or Most Recently Relevant to Health Maintenance Insurance MEDICARE MEDICAID - [place] Care Teams Foot Orthopedist Relationship Specialty Start Date End Date Suzan Briscoe MD [address] [place] [phone] PCP - General Internal Medicine 04/11/24
--- OUTSIDE RECORDS SUMMARY | 2024-05-05 08:50 | XMS_ITS | Clinical Summary ---
Author Organization [facility] Address [address] [place] [address] Care Team Providers Care Fisher Trawl Net Name Role Phone Suzan Briscoe MD Primary Care Provider [phone] Allergies Active Allergy Reactions Criticality Noted Date Comments Ibuprofen 10/29/2022 Acetaminophen 10/29/2022 Medications Medication Sig Dispensed Refills Start Date End Date Status Metoprolol Succinate 50 MG CS24 Take by mouth. 0 Active amLODIPine (NORVASC) tablet 10 mg Take 1 tablet (10 mg total) by mouth daily. 0 Active allopurinol (ZYLOPRIM) 300 MG tablet Take 1 tablet (300 mg total) by mouth daily. 0 Active atorvastatin (LIPITOR) tablet 20 mg Take 1 tablet (20 mg total) by mouth daily. 0 Active citalopram (CeleXA) 20 MG tablet Take 1 tablet (20 mg total) by mouth daily. 0 Active omeprazole (PriLOSEC) 20 MG capsule Take 1 capsule (20 mg total) by mouth daily. 0 Active rifAXIMin (XIFAXAN) 550 MG TABS tablet Take 1 tablet (550 mg total) by mouth 2 (two) times a day. 0 Active aspirin EC 81 MG tablet Take 1 tablet (81 mg total) by mouth daily. 0 Active Active Problems Problem Noted Date Diagnosed Date Cancer, hepatocellular 10/01/2022 Social History Tobacco Use Types Packs/Day Years Used Date Smoking Tobacco: Never Assessed Sex and Gender Information Value Date Recorded Sex Assigned at Not on file Gender Identity Not on file Sexual Orientation Not on file Job Start Date Occupation Industry Not on file Not on file Not on file Last Filed Vital Signs Vital Sign Reading Time Taken Comments Blood Pressure 107/62 09/25/2023 2:05 PM EDT Pulse 53 09/25/2023 2:05 PM EDT Temperature 36.7 ??C (98 ??F) 09/25/2023 2:05 PM EDT Respiratory Rate - - Oxygen Saturation 100% 09/25/2023 2:05 PM EDT Inhaled Oxygen Concentration - - Weight 92 kg (202 lb 12.8 oz) 09/25/2023 2:05 PM EDT Height 175.3 cm (5' 9 ) 10/29/2022 11:42 AM EDT Body Mass Index 29.95 10/29/2022 11:42 AM EDT Plan of Treatment Health Maintenance Due Date Last Done Comments Hepatitis C Screening 1955 COVID-19 Vaccine (#1) 1961 Depression Screening 1968 Preventative Health Evaluation 1974 DTap / Tdap / Td (1 - Tdap) 11/12/1975 Shingrix-Zoster Vaccine (1 o f 2) 11/12/1975 Colon Cancer Screening (Colonoscopy) 2001 Hepatitis B Vaccines (3 of 3 - 19+ 3-dose series) 12/17/2007 07/20/2007, 06/17/2007 Pneumococcal Vaccine (3 of 3 - PCV) 10/13/2020 10/14/2019, 12/11/2016 Fall Risk Assessment 2021 Influenza Vaccine (#1) 2023 8, 01/12/2007 RSV Adult > 60+ Yrs or (1 - 1-dose 75+ series) 11/12/2031 RSV Ped < 20 months Aged Out No longe r eligible based on patient's age to complete this topic Care Teams Fisher Trawl Net Relationship Specialty Start Date End Date Suzan Briscoe MD [address] [place] [phone] PCP - General Machining Supervisor 09/11/22
--- OUTSIDE RECORDS SUMMARY | 2024-05-05 08:50 | XMS_ITS | Encounter Summary ---
Author Organization [facility] Address [address] [place] [address] Care Team Providers Care Passenger Car Conductor Name Role Phone Suzan Briscoe MD Primary Care Provider [phone] Encounter Details Date Type Department Care Team ([facility] st Contact Info) Description 04/14/2024 8:40 AM EST Office Visit Gastroenterology - [address] [phone] Darline Luu NP [address] [address] Cirrhosis of liver with ascites, unspecified hepatic cirrhosis type (CMS/HCC) (Primary Dx); Hepatocellular carcinoma (CMS/HCC) Social History Tobacco Use Types Packs/Day Years Used Date Smoking Tobacco: Never Assessed Sex and Gender Information Value Date Recorded Sex Assigned at Male 04/22/2024 10:51 AM EST Legal Sex Male 3:32 PM EST Gender Identity Male 04/22/2024 10:51 AM EST Sexual Orientation Straight 04/26/2024 12 :12 PM EST documented as of this encounter Last Filed Vital Signs Vital Sign Reading Time Taken Comments Blood Pressure - - Pulse - - Temperature - - Respiratory Rate - - Oxygen Saturation - - Inhaled Oxygen Concentration - - Weight 94.3 kg (208 lb) 04/14/2024 8:00 AM EST Height 175.3 cm (5' 9 ) 04/14/2024 8:00 AM EST Body Mass Index 30.72 04/14/2024 8:00 AM EST documented in this encounter Progress Notes * Darline Luu NP - 04/14/2024 8:40 AM EST CHIEF COMPLAINT: HCC with new onset ascites DATE OF LAST ENDOSCOPIC PROCEDURES: [id number] Colonoscopy 09/2022 EGD Grade 1 varicies 3 yr recall HPI: Lucien Rowland is a 68 y.o. old male who was originally referred to us by Suzan Briscoe MD now presents to the gastroenterology department today telling me he recently had an MRI and saw at [facility] and was told to see us for new onset ascites. Mr. Rowland has a history of HCC dx in 2022. He has been treated with both chemoembolization (09/28) as well as two radiofrequency ablations.(12/29 and 07/30). Mr. Rowland had an MRI done 04/04/24 showing moderate volume ascites in all 4 quadrants. He tells me his abdomen is distended and very uncomfortable He denies fever or chills, nausea orvomiting. He denies weight loss or gain. He describes early satiety and abdominal fullness. He denies pruritus or peripheral edema. He tells me he see's renal at [facility] but it has been at least 6 months since he was seen by them Mr. Rowlnad is a complicated patient and we discussed this new onset of ascites. He is on a low sodiumdiet which he is to stay on. He expressed interest in being sent for liver transplant and I will discuss this with León Marcum. Today I will check his renal function and if okay will start him on diuretics and see him back soon to monitor his response. At this point I have not scheduled paracentesis. ROS: GENERAL: No malaise, significant weight loss or fever HEENT: No changes in hearing or vision or swallowing problems RESPIRATORY: No cough, wheezing or shortness of breath CARDIOVASCULAR: No chest pain, leg swelling or palpitations GI: See H&P The remainder of the review of systems is reviewed and negative. PAST MEDICAL HISTORY: HCC dx 09/28 chemoembolization and radiofrequency ablation EtOH Cirrhosis IVDU PVD CVA with left sided weakness CKD III Anemia with negative GI work up HTN Hyperlipiodemia Colon polyps GERD Chronic back pain Gout Cholelithiasis PAST SURGICAL HISTORY: Right LL ORIF Ablation of liver lesions [facility] SOCIAL HISTORY: EtOH abuse Quit drinking in 2012 Quit tobacco 2012 IVDA none since FAMILY HISTORY: No family history on file. ACTIVE MEDICATIONS: Allopurinol Amlodipine 10mg QD ASA 81mg QD Citalopram 40mg QD Metoprolol 50mg QD Omeprazole 20mg QD Xifaxan 550mg BID ALLERGIES: Allergies Allergen Reactions Acetaminophen Ibuprofen PHYSICAL EXAM: APPEARANCE: Alert and in no acute distress EYES: PERRLA, conjunctiva and sclera normal. No jaundice appreciated HEART: RRR with normal S1 and S2, no murmurs appreciated HR 64 LUNG: clear to auscultation ABDOMEN: firm umbilical hernia protruding but reducible diffusely sensitive palpable spleen NEURO: Awake, alert and oriented x 3 No asterixis EXTREMITIES: no peripheral edema Assessment & Plan Cirrhosis of liver with ascites, unspecified hepatic cirrhosis type (CMS/HCC) Check labs today. If renal function ok will start lasix and spironolactone Diagnostic paracentesis order placed ? Referral liver transplant OV 4 weeks Orders: CBC and differential; Future Comprehensive metabolic panel; Future Prothrombin time with INR; Future Alpha fetoprotein tumor marker; Future Hepatocellular carcinoma (CMS/HCC) OV 4 weeks I would like to thank Suzan Briscoe MD for the opportunity to partake in the patient's care. Board Certified Gastroenterology [facility] Medical [facility] W [phone] [place] [phone] [email or web address] Darline Luu NP documented in this encounter Plan of Treatment Upcoming Encounters Date Type Department Care Team (Late st Contact Info) Description 05/16/2024 8:00 AM EDT Office Visit Gastroenterology - 299 [facility] [address] [address] Darline Luu NP [address] [address] 09/26/2024 9:00 AM EDT Office Visit [facility] Hematology Oncology [address] [place] [address] Ignacio Cohen MD [address] [place] [address] documented as of this encounter Results * Alpha fetoprotein tumor marker (04/14/2024 8:33 AM EST) [facility] AFP 3.2 0.0 - 8.0 ng/mL LAB CHEMISTRY METHOD 04/14/2024 9:45 AM EST [facility] Blood Venous blood specimen / Unknown Venipuncture / Unknown 04/14/2024 8:33 AM EST 04/14/2024 8:57 AM EST Narrative [facility] - 04/14/2024 9:45 AM EST The Siemens Advia Centaur Chemiluminescent Immunoassay is used. Results obtained with different assay methods or kits cannot be used interchangeably. Results cannot be interpreted as absolute evidence of the presence or absence of malignant disease. Darline Luu NP LAB BLOOD ORDERABLES Final Re sult Performing Organization Address City/[facility]/ZIP Co de Phone Number [facility] [address] [place] [address], * (ABNORMAL) Prothrombin time with INR (04/14/2024 8:33 AM EST) [facility] Protime 16.4(H) 10.6 - 13.9 sec LAB COAGULATION METHOD 04/14/2024 9:34 AM EST [facility] INR 1.3 LAB COAGULATION METHOD 04/14/2024 9:34 AM EST [facility] Blood Venous blood specimen / Unknown Venipuncture / Unknown 04/14/2024 8:33 AM EST 04/14/2024 8:57 AM EST Darline Luu NP LAB BLOOD ORDERABLES Final Re sult [facility] [address] [place] [address], * (ABNORMAL) Comprehensive metabolic panel (04/14/2024 8:33 AM EST) Sodium 140 133 - 145 mmol/L LAB CHEMISTRY METHOD 04/14/2024 9:38 AM [facility] Potassium 4.4 3.5 - 5.5 mmol/L LAB CHEMISTRY METHOD 04/14/2024 9:38 AM [facility] Chloride 108 96 - 110 mmol/L LAB CHEMISTRY METHOD 04/14/2024 9:38 AM [facility] CO2 28 21 - 32 mmol/L LAB CHEMISTRY METHOD 04/14/2024 9:38 AM [facility] Anion Gap 4 3 - 11 LAB CHEMISTRY METHOD 04/14/2024 9:38 AM [facility] Glucose 115(H) 70 - 100 mg/dL LAB CHEMISTRY METHOD 04/14/2024 9:38 AM [facility] BUN 23 5 - 25 mg/dL LAB CHEMISTRY METHOD 04/14/2024 9:38 AM [facility] Creatinine 1.89(H) 0.70 - 1.30 mg/dL LAB CHEMISTRY METHOD 04/14/2024 9:38 AM [facility] eGFR 38(L) >=60 mL/min/1. 73m2 LAB CHEMISTRY METHOD 04/14/2024 9:38 AM [facility] Comment:Calculation based on the??Chronic Kidney Disease Epidemiology Collaboration (CKD-EPI) equation refit??without adjustment for race. BUN/Creatinine Ratio 12.2 LAB CHEMISTRY METHOD 04/14/2024 9:38 AM [facility] Calcium 9.0 8.5 - 10.5 mg/dL LAB CHEMISTRY METHOD 04/14/2024 9:38 AM [facility] AST (SGOT) 57(H) 10 - 42 unit/L LAB CHEMISTRY METHOD 04/14/2024 9:38 AM [facility] ALT (SGPT) 86(H) 10 - 60 unit/L LAB CHEMISTRY METHOD 04/14/2024 9:38 AM [facility] Alkaline Phosphatase 273(H) 42 - 121 unit/L LAB CHEMISTRY METHOD 04/14/2024 9:38 AM [facility] Total Protein 6.6 6.0 - 8.0 g/dL LAB CHEMISTRY METHOD 04/14/2024 9:38 AM [facility] Albumin 3.2 3.2 - 5.0 g/dL LAB CHEMISTRY METHOD 04/14/2024 9:38 AM [facility] Total Bilirubin 1.7(H) 0.0 - 1.4 mg/dL LAB CHEMISTRY METHOD 04/14/2024 9:38 AM [facility] Blood Venous blood specimen / Unknown Venipuncture / Unknown 04/14/2024 8:33 AM EST 04/14/2024 8:57 AM EST us Darline Luu ACUTE CARE NURSE LAB BLOOD ORDERABLES Final Re sult [facility] [address] [place] [address], documented in this encounter Visit Diagnoses Diagnosis Cirrhosis of liver with ascites, unspecified hepatic cirrhosis type (CMS/HCC)- Primary Hepatocellular carcinoma (CMS/HCC) Malignant neoplasm of liver, primary documented in this encounter Care Teams Passenger Car Conductor Relationship Specialty Start Date End Date Suzan Briscoe MD [address] [place] [address] PCP - General Internal Medicine 04/11/24 documented as of this encounter
--- OUTSIDE RECORDS SUMMARY | 2024-05-05 08:50 | XMS_ITS | Clinical Summary ---
Author Organization [facility] Address [address] [place] [address] Phone Care Team Providers Care Reed Cleaner Name Role Phone Suzan Briscoe MD Primary Care Provider [phone] Allergies Active Allergy Reactions Criticality Noted Date Comments Acetaminophen Other (see comments) 07/17/2020 Codeine 02/05/2022 Other reaction(s): cirrhosis Ibuprofen Other (see comments) 07/17/2020 Medications aspirin (ST YENIFER) 81 MG EC tablet Take 81 mg by mouth 1 (one) time each day Active atorvastatin (LIPITOR) 20 MG tablet Take 1 tablet by mouth 1 (one) time each day Active citalopram (CeleXA) 20 MG tablet Take 40 mg by mouth 1 (one) time each day Active rifAXIMin (XIFAXAN) 550 MG tablet Take 1 tablet by mouth 2 (two) times a day Active allopurinol (ZYLOPRIM) 300 MG tablet Take 300 mg by mouth 1 (one) time each day Active amLODIPine (NORVASC) 5 MG tablet 06/01/2022 Active omeprazole (PriLOSEC) [address] capsule TAKE 1 CAPSULE BY MOUTH EVERY DAY 90 capsule 1 11/10/2022 Active metoprolol tartrate (LOPRESSOR) 50 MG tablet Take 50 mg by mouth in the morning and 50 mg in the evening. Active Active Problems Problem Noted Date Diagnosed Date Anemia in chronic kidney disease 11/17/2023 Secondary hyperparathyroidism of renal origin Stage 3a chronic kidney disease 07/17/2020 Hyperkalemia 07/17/2020 Hypertensive heart and renal disease with (congestive) heart failure 07/17/2020 Hypertensive heart disease without heart failure 07/17/2020 Alcoholic cirrhosis 04/30/2018 Biliary cirrhosis 04/30/2018 Atherosclerosis of [place] ar teries of extremities with intermittent claudication, unspecified extremity 04/30/2018 Gastroesophageal reflux disease 04/30/2018 Deep venous thrombosis 04/30/2018 Overview (10/31/2020): Balloon angioplasty of distal SFA & TP trunk arteries 06/05/17 with EKOS lysis done 06/04/17. Prior Left popliteal artery aneurysm stent placement Hemiparesis as late effect of cerebrovascular ac cident 04/30/2018 Hypertension 04/30/2018 Hypercholesterolemia 04/30/2018 Resolved Problems Problem Noted Date Diagnosed Date Resolved Date Type 2 diabetes mellitus 04/30/201804/2021 Immunizations Name Administration Dates Next Due Influenza TIV (IM) 01/06/2018 Family History Medical History Relation Comments Diabetes Father Hypertension Father Diabetes Mother Hypertension Mother Heart disease Sibling 1 Diabetes Sibling 2 Hypertension Sibling 3 Relation Status Comments Father Unknown Mother Unknown Sibling 1 Sibling 2 Sibling 3 Social History Tobacco Use Types Packs/Day Years Used Date Smoking Tobacco: Former Smokeless Tobacco: Never Tobacco Cessation:Counseling Given: Not Answered Comments:Smoking History Info:Every day Sex and Gender Information Value Date Recorded Sex Assigned at Not on file Legal Sex Male 4:51 PM EST Gender Identity Not on file Sexual Orientation Not on file Last Filed Vital Signs Vital Sign Reading Time Taken Comments Blood Pressure 120/60 11/17/2023 11:21 AM EDT Pulse 56 11/17/2023 11:21 AM EDT Temperature - - Respiratory Rate - - Oxygen Saturation 98% 05/11/2023 10:53 AM EST Inhaled Oxygen Concentration - - Weight 89.8 kg (198 lb) 11/17/2023 11:21 AM EDT Height 175.3 cm (5' 9 ) 12/03/2022 1:12 PM EDT Body Mass Index 29.24 12/03/2022 1:12 PM EDT Plan of Treatment Upcoming Encounters Date Type Department Care Team (Latest Contact Info) Description 05/07/2024 Orders Only [facility] [place] [facility] [address] [address] Vee Reynolds ARNP [address] [address] Stage 3a chronic kidney disease (HCC); Hypertension; Anemia in chronic kidney disease; Secondary hyperparathyroidism of renal origin (HCC) Health Maintenance Due Date Last Done Comments Colorectal Cancer Screening: Annual FOBT 2005 Colorectal Cancer Screening: Colonoscopy 2005 Colorectal Cancer Screening: Sigmoidoscopy 2005 Hepatitis B Vaccine (1 of 3 - Risk 3-dose series) 2016 07/20/2007, 06/17/2007 Pneumococcal Vaccine: 65+ Ye ars (2 of 2 - PCV) 10/13/2020 10/14/2019 Influenza Vaccine (#1) 2023 01/06/2018, 2005 Insurance [place]ICARE [place]ID [place] Care Teams Reed Cleaner Relationship Specialty Start Date End Date Suzan Briscoe MD [place] [address] PCP - General 03/19/20
--- OUTSIDE RECORDS SUMMARY | 2024-05-05 08:50 | XMS_ITS | Encounter Summary ---
Author Organization [facility] Address [address] [place] [address] Care Team Providers Care Director Of Learning Name Role Phone Suzan Briscoe MD Primary Care Provider [phone] Encounter Details Date Type Department Care Team (Late st Contact Info) Description 04/14/2024 Telephone Gastroenterology - [address] [place] [phone] Julia Velasco MA Social History Tobacco Use Types Packs/Day Years Used Date Smoking Tobacco: Never Assessed Sex and Gender Information Value Date Recorded Sex Assigned at Male 04/22/2024 10:51 AM EST Legal Sex Male 3:32 PM EST Gender Identity Male 04/22/2024 10:51 AM EST Sexual Orientation Straight 04/26/2024 12 :12 PM EST documented as of this encounter Progress Notes * Tierra Ramírez - 04/15/2024 9:01 AM EST PT STATES HE RETURNING YOUR CALL * Julia Velasco MA - 04/14/2024 1:24 PM EST PT STATES HE IS RETURNING 2 MISSED CALL FROM YOU BOTH @11ISH documented in this encounter Plan of Treatment Upcoming Encounters Date Type Department Care Team (Late Contact Info) Description 05/16/2024 8:00 AM EDT Office Visit Gastroenterology - [address] [place] [phone] Darline Luu NP [address] [address] 09/26/2024 9:00 AM EDT Office Visit [facility] Hematology Oncology [address] [place] [address] Ignacio Cohen MD [address] [place] [address] documented as of this encounter Visit Diagnoses Not on filedocumented in this encounter Care Teams Director Of Learning Relationship Specialty Start Date End Date Suzan Briscoe MD [address] [place] [phone] PCP - General Internal Medicine 04/11/24 documented as of this encounter
--- OUTSIDE RECORDS SUMMARY | 2024-05-05 08:50 | XMS_ITS | Encounter Summary ---
Author Organization [facility] Address [address] [place] [address] Care Team Providers Care Technical Analyst Name Role Phone Suzan Briscoe MD Primary Care Provider [phone] Reason for Referral * Imaging (Routine) - Closed Specialty Diagnoses / Procedures Referred By Shar roberts Referred To Contact Radiology Diagnoses Cirrhosis of liver with ascites, unspecified hepatic cirrhosis type (CMS/HCC) Hepatocellular carcinoma (CMS/HCC) Procedures US Paracentesis w Image Guidance Darline Luu NP [address] [address] Phone: tel: fax: [facility] Referral ID Status Reason Start Date Expiration Date Visits Re quested Visits Authorized [id number] Closed 04/25/2024 04/25/2025 1 1 Reason for Visit * Imaging (Routine) - Closed Specialty Diagnoses / Procedures Referred By Shar roberts Referred To Contact Radiology Diagnoses Cirrhosis of liver with ascites, unspecified hepatic cirrhosis type (CMS/HCC) Hepatocellular carcinoma (CMS/HCC) Procedures US Paracentesis w Image Guidance Darline Luu NP [address] [address] Phone: tel: fax: [facility] Referral ID Status Reason Start Date Expiration Date Visits Re quested Visits Authorized [id number] Closed 04/25/2024 04/25/2025 1 1 Encounter Details Date Type Department Care Team (Latest Contact Info) Description 04/26/2024 12:15 PM EST - 04/26/2024 11:59 PM EST Hospital Encounter [facility] Ultrasound [address] [place] [phone] Cirrhosis of liver with ascites, unspecified hepatic cirrhosis type (CMS/HCC); Hepatocellular carcinoma (CMS/HCC) Discharge Disposition: Home or Self Care Social History Tobacco Use Types Packs/Day Years Used Date Smoking Tobacco: Never Assessed Sex and Gender Information Value Date Recorded Sex Assigned at Male 04/22/2024 10:51 AM EST Legal Sex Male 3:32 PM EST Gender Identity Male 04/22/2024 10:51 AM EST Sexual Orientation Straight 04/26/2024 12 :12 PM EST documented as of this encounter Medications at Time of Discharge allopurinoL (ZYLOPRIM) 300 mg tablet Take 1 tablet (300 mg total) by mouth 1 (one) time each day. amLODIPine (NORVASC) 10 mg tablet Take 1 tablet (10 mg total) by mouth 1 (one) time each day. 07/06/2018 aspirin 81 mg EC tablet Take 1 tablet (81 mg total) by mouth 1 (one) time each day. citalopram (CeleXA) 40 mg tablet Take 1 tablet (40 mg total) by mouth 1 (one) time each day. 02/25/2024 metoprolol succinate 50 mg capsule,sprinkle, ER 24hr Take by mouth. omeprazole (PriLOSEC) [address] capsule Take 1 capsule (20 mg total) by mouth 1 (one) time each day. Xifaxan 550 mg tablet Take 1 tablet (550 mg total) by mouth 2 (two) times a day. documented as of this encounter Discharge Disposition Disposition Code Departure Means Destination Home or Self Care documented in this encounter Plan of Treatment Upcoming Encounters Date Type Department Care Team (Late st Contact Info) Description 05/16/2024 8:00 AM EDT Office Visit Gastroenterology - 299 [facility] [address] [phone] Darline Luu NP [address] [address] 09/26/2024 9:00 AM EDT Office Visit [facility] Hematology Oncology [address] [place] [address] Ignacio Cohen MD [address] [place] [address] documented as of this encounter Procedures Procedure Name Priority Date/Time Associated Diagnosis Comments US PARACENTESIS W IMAGE GUIDANCE Routine 04/26/2024 12:57 PM EST Cirrhosis of liver with ascites, unspecified hepatic cirrhosis type (CMS/HCC) Hepatocellular carcinoma (CMS/HCC) documented in this encounter Results * US Paracentesis w Image Guidance [...] Signed Date: 04/26/2024 15:31 ET Workstation ID: [id number] Transcribed By: Self Edit Transcribed Date: 04/26/2024 14:02 ET Resident/PA/PUBLIC WORKS INSPECTOR: Mellissa Martins Narrative 04/26/2024 3:31 PM EST [...] Signed Date: 04/26/2024 15:31 ET Workstation ID: [id number] Transcribed By: Self Edit Transcribed Date: 04/26/2024 14:02 ET Resident/PA/PUBLIC WORKS INSPECTOR: Mellissa Martins us Darline Luu NP IMG US PROCEDURES Final Resul t documented in this encounter Visit Diagnoses Diagnosis Cirrhosis of liver with ascites, unspecified hepatic cirrhosis type (CMS/HCC) Hepatocellular carcinoma (CMS/HCC) Malignant neoplasm of liver, primary documented in this encounter Administered Medications Inactive Administered Medications - up to 3 most recent administrations Medication Order MAR Action Action Date Dose Rate Site lidocaine (XYLOCAINE) 1 % injection 5 mL 5 mL, infiltration, Once in imaging, Starting on Thu04/26/24 at 1258, For 1 dose Given 04/26/2024 12:58 PM EST 5 mL documented in this encounter Orders Medications Ordered That Ronni ht Not Have Been Administered Count Last Ordered Date First Ordered Date lidocaine (XYLOCAINE) 1 % injection 5 mL 1 04/26/2024 documented in this encounter Care Teams Technical Analyst Relationship Specialty Start Date End Date Suzan Briscoe MD [address] [place] [address] PCP - General Internal Medicine 04/11/24 documented as of this encounter
--- OUTSIDE RECORDS SUMMARY | 2024-05-05 08:50 | XMS_ITS | Clinical Summary ---
Author Organization [facility] Address [address] [place] [address] Care Team Providers Care Needle Process Felt Goods Supervisor Name Role Phone Unavailable Primary Care Provider Unavailabl e Source Comments PLEASE NOTE, if this patient is a minor, it may be UNLAWFUL to discuss sensitive information that is contained in these records (such as FAMILY PLANNING, MENTAL HEALTH or SUBSTANCE ABUSE) with the minor patient's parent or other person without the patient's specific authorization.[facility] Social History Tobacco Use Types Packs/Day Years Used Date Smoking Tobacco: Never Assessed Social Connections Answer Date Recorded Social Connections and Isolation 0 10/12/2019 Financial Resource Strain Answer Date R ecorded Financial Resource Strain 0 2019 Stress Answer Date Recorded Stress 0 10/12/2019 Physical Activity Answer Date Recorded Physical Activity 0 10/12/2019 Food Insecurity Answer Date Recorded Food 0 10/12/2019 Transportation Needs Answer Date Record ed Transportation 0 10/12/2019 Housing Stability Answer Date Recorded Housing 0 10/12/2019 Safety and Environment Answer Date Thomas rded Safety 0 10/12/2019 Utilities Answer Date Recorded Utilities 0 10/12/2019 Employment Answer Date Recorded Employment 0 10/12/2019 Sex and Gender Information Value Date Recorded Sex Assigned at Not on file Legal Sex Male 12:39 PM PST Gender Identity Not on file Sexual Orientation Not on file Plan of Treatment Not on file Insurance [place] D[place] [facility] SAF[facility] NET DENTAL
== END 2024-05-05 09:41 | disposition home or self-care (01) ==
LOC: HO.HCS 08:25
PROVIDERS: PCP Internal Medicine; Visit Provider Internal Medicine
DX: I45.10 Unspecified right bundle-branch block (principal); I34.81 Nonrheumatic mitral (valve) annulus calcification; I51.89 Other ill-defined heart diseases; I27.20 Pulmonary hypertension, unspecified
CPT/HCPCS: 93010; 99214; G2211

== ENCOUNTER → 2024-05-05 08:25 | Outpatient (BNVA) | payer MEDICARE, MEDICAID, SELFPAY | PROVIDERS: PCP Internal Medicine; Visit Provider Internal Medicine | DX: I45.10 Unspecified right bundle-branch block (principal); I34.81 Nonrheumatic mitral (valve) annulus calcification; I51.89 Other ill-defined heart diseases; I27.20 Pulmonary hypertension, unspecified; R94.31 Abnormal electrocardiogram [ECG] [EKG] | CPT/HCPCS: 93005; 99212 ==

== ENCOUNTER 2024-05-25 08:44 | Outpatient (AMB) | payer MEDICARE, MEDICAID, SELFPAY ==
--- NOTE | 2024-05-25 08:49 | HO.NEPHOV ---
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: No Accompanied by: Spouse Allergies acetaminophen [Tylenol] Allergy (Severe, Verified 05/25/24 08:55) Rash and Hives losartan Allergy (Severe, Verified 05/25/24 08:55) Rash and Hives Motrin Allergy (Severe, Uncoded 10/20/23 11:08) Rash and Hives Medication List - Last Reconciled 05/25/24 by Andrew Spangler MD allopurinol 300 mg PO DAILY amlodipine 5 mg PO DAILY aspirin (Adult Aspirin Regimen) 81 mg PO DAILY atorvastatin 20 mg PO DAILY cane As directed citalopram 40 mg PO DAILY meclizine 25 mg PO BID PRN metoprolol tartrate 50 mg (1/2 x 100 mg) PO BID omeprazole 20 mg PO DAILY rifaximin 550 mg PO BID spironolactone 50 mg PO DAILY HPI Comments Details: [age] year old man with a history of chronic alcohol use and cirrhosis of the liver. He was chronic kidney disease with a serum creatinine 1.6 back in 2022. He has history of diabetes mellitus. He was previously seen by me in my previous practice and subsequently transferred his care to with the new practice. He was recently seen by Gastroenterology and started on spironolactone 50 mg. He was feeling dizzy therefore he has stopped spironolactone. He was not taking spironolactone for the last week or so. 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 Chronic kidney disease, stage 4 (severe) Hypertension Foot fracture, right Ribs, multiple fractures Chronic depression PVD (peripheral vascular disease) Iron deficiency anemia Hyperlipidemia Polyp, colonic Liver cirrhosis CVA (cerebral vascular accident) Surgical History History of surgery on wrist History of esophagogastroduodenoscopy (EGD) H/O colonoscopy Family History Father Diabetes mellitus Mother Diabetes mellitus Social History Household Members: Other Household Members Other:: friend Housing: Apartment Alcohol intake: never Patient Tobacco Use Status: Former Tobacco user Tobacco use type: Cigarette e-Cigarette/Vaping Use: Never Used service: No Current occupational status: disabled Cognitive needs: No Hearing needs: No Vision needs: Yes Review of Systems Const Denies fever(s) and Denies weight loss Card Denies chest pain Resp Denies cough and Denies hemoptysis GI Denies abdominal pain, Denies diarrhea and Denies nausea Musc Denies back pain Neuro Denies focal weakness Physical Exam Vital Signs: Last Vital Signs Pulse 58 05/25/24 08:52 BP 112/62 05/25/24 08:52 Pulse Ox 99 05/25/24 08:52 Oxygen Delivery Method Room Air 05/25/24 08:52 BMI result Body Mass Index 28.5 Results Reviewed Results Reviewed: Labs ordered for today Nephrology Results: Hgb 12.2 g/dl (14.0-18.0) L 10/17/22 WBC 3.8 X10*3/uL (4.8-10.8) L 10/17/22 Plt Count 44 X10*3/uL (160-400) L 10/17/22 Sodium 139 mmol/L (135-145) 10/17/22 Potassium 4.5 mmol/L (3.3-5.1) 10/17/22 Chloride 107 mmol/L (96-108) 10/17/22 Carbon Dioxide 25 mmol/L (22-29) 10/17/22 BUN 26 mg/dL (9-16) H 10/17/22 Creatinine 1.83 mg/dL (0.5-1.4) H 10/17/22 Calcium 9.5 mg/dL (8.4-10.2) 10/17/22 Assessment & Plan Assessment & Plan (1) Chronic kidney disease, stage 4 (severe): Code(s): N18.4 - Chronic kidney disease, stage 4 (severe) Category: Medical Plan Chronic kidney disease in the setting of cirrhosis and hepatocellular carcinoma. He history of today to reestablish care. Ordered renal panel today. Obtain follow up renal ultrasonogram. Currently blood pressure is acceptable. He is unable to tolerate spironolactone 50 mg. And he does not want to take this anymore. Therefore I will hold off on spironolactone and add Lasix 20 mg p.o. daily. Encouraged to stay on low-sodium diet. He returned to the office once the basic workup is completed and I will track down his old records as well. He returned to the office in the next 1 month Orders: Orders Complete Blood Count no Diff Today N18.4 - Chronic kidney disease, stage 4 (severe) Comprehensive Met. Panel Today N18.4 - Chronic kidney disease, stage 4 (severe) Creatinine Urine Today N18.4 - Chronic kidney disease, stage 4 (severe) Total Protein Urine Random Today N18.4 - Chronic kidney disease, stage 4 (severe) UA and rflx microscopic Today N18.4 - Chronic kidney disease, stage 4 (severe) US renal BI Today I10 - Essential (primary) hypertension, N18.4 - Chronic kidney disease, stage 4 (severe) Medications: New furosemide (Lasix) 20 mg PO DAILY 90 tabs 1RF Coding Level of Care Code Est Pt Level 4 (75453) Diagnoses Chronic kidney disease, stage 4 (severe) N18.4
[2024-05-25 08:52] VITALS: BP 112/62; PULSE 58; O2SAT 99; BMI 28.5
--- OUTSIDE RECORDS SUMMARY | 2024-05-25 09:35 | XMS_ITS | Encounter Summary ---
Author Organization [facility] Address [address] [address] Phone Care Team Providers Care Systems Security Consultant Name Role Phone Suzan Briscoe MD Primary Care Provider [phone] Encounter Details Date Type Department Care Team (Latest Contact Info) Description 05/07/2024 Orders Only [facility] [address] [facility] [address] [place] [address] Vee Reynolds ARNP [address] [phone] Stage 3a chronic kidney disease (HCC); Hypertension; Anemia in chronic kidney disease; Secondary hyperparathyroidism of renal origin (HCC) Social History Tobacco Use Types Packs/Day Years Used Date Smoking Tobacco: Former Smokeless Tobacco: Never Comments:Smoking History Inf o:Every day Sex and Gender Information Value Date Recorded Sex Assigned at Not on file Legal Sex Male 4:51 PM EST Gender Identity Not on file Sexual Orientation Not on file documented as of this encounter Plan of Treatment Not on file documented as of this encounter Visit Diagnoses Diagnosis Stage 3a chronic kidney disease (HCC) Hypertension Anemia in chronic kidney disease Secondary hyperparathyroidism of renal origin (HCC) Secondary hyperparathyroidism of renal origin documented in this encounter Care Teams Systems Security Consultant Relationship Specialty Start Date End Date Suzan Briscoe MD [address] [place] [address] PCP - General 03/19/20 documented as of this encounter
--- OUTSIDE RECORDS SUMMARY | 2024-05-25 09:36 | XMS_ITS | Encounter Summary ---
Author Organization [facility] [employer] Address [address] [place] [address] Care Team Providers Care Orthodontist Name Role Phone Suzan Briscoe MD Primary Care Provider Reason for Visit * Reason Onset Date Comments Sooner FOV 05/06/2024 Encounter Details Date Type Department Care Team (Late st Contact Info) Description 05/06/2024 Telephone [facility] Hematology Oncology [address] [place] [address] Ignacio Cohen MD [address] [place] [address] Sooner FOV Social History Tobacco Use Types Packs/Day Years Used Date Smoking Tobacco: Former Cigarettes Smokeless Tobacco: Former Sex and Gender Information Value Date Recorded Sex Assigned at Male 04/22/2024 10:51 AM EST Legal Sex Male 3:32 PM EST Gender Identity Male 04/22/2024 10:51 AM EST Sexual Orientation Straight 04/26/2024 12 :12 PM EST documented as of this encounter Progress Notes * Abby Pritchard RN - 05/09/2024 12:37 PM EST Images from the original note were not included. I attempted X 2 to call Lucien back [phone]. No answer. Left patient VM's (x 2) requesting he call the office back to book a sooner FOV. Needs a FOV ana maria. Next FOV is 09/26/24. He was seen in the ER on 05/06/24 for c/o diarrhea and BRBPR. Had a FOV with GI this morning. (Snip of CT scan) * Ignacio Cohen MD - 05/09/2024 11:25 AM EST Can you handle this 1? * Rachel Jc - 05/06/2024 3:30 PM EST Patient was in er on 05/05, asking to review note and call him when you return to office at [phone] documented in this encounter Plan of Treatment Upcoming Encounters Date Type Department Care Team (Late st Contact Info) Description 06/15/2024 1:50 PM EDT Office Visit Gastroenterology - [address] [phone] Isiah Marcum MD [address] [place] [phone] 06/28/2024 10:30 AM EDT Office Visit [facility] Hematology Oncology [address] [place] [phone] Ignacio Cohen MD [address] [place] [phone] 09/26/2024 9:00 AM EDT Office Visit [facility] Hematology Oncology [address] [place] [phone] Ignacio Cohen MD [address] [place] [phone] documented as of this encounter Visit Diagnoses Not on filedocumented in this encounter Care Teams Orthodontist Relationship Specialty Start Date End Date Suzan Briscoe MD PCP - General Internal Medicine 04/11/24 documented as of this encounter
--- OUTSIDE RECORDS SUMMARY | 2024-05-25 09:36 | XMS_ITS | Clinical Summary ---
Author Organization [facility] Address [address] [place] [address] Phone Care Team Providers Care Recruiting Coordinator Name Role Phone Suzan Briscoe MD Primary Care Provider [phone] Allergies Active Allergy Reactions Criticality Noted Date Comments Acetaminophen 10/29/2022 Codeine 02/05/2022 Other Reaction(s): cirrhosis Other reaction(s): cirrhosis Ibuprofen 10/29/2022 Medications amLODIPine (NORVASC) 10 mg tablet Take 1 tablet (10 mg total) by mouth 1 (one) time each day. 9 Active metoprolol succinate 50 mg capsule,sprinkle ,ER 24hr Take by mouth. Active allopurinoL (ZYLOPRIM) 300 mg tablet Take 1 tablet (300 mg total) by mouth 1 (one) time each day. Active omeprazole (PriLOSEC) [address] capsule Take 1 capsule (20 mg total) by mouth 1 (one) time each day. Active citalopram (CeleXA) 40 mg tablet Take 1 tablet (40 mg total) by mouth 1 (one) time each day. 4 Active aspirin 81 mg EC tablet Take 1 tablet (81 mg total) by mouth 1 (one) time each day. Active Xifaxan 550 mg tabletIndication s:Rectal bleeding,Hepatoc ellular carcinoma (CMS/HCC),Alcoho lic cirrhosis, unspecified whether ascites present (CMS/HCC) Take 1 tablet (550 mg total) by mouth 2 (two) times a day. 180 tablet 1 5 Active spironolactone (ALDACTONE) 50 mg tabletIndication s:Rectal bleeding,Hepatoc ellular carcinoma (CMS/HCC),Alcoho lic cirrhosis, unspecified whether ascites present (CMS/HCC) Take 1 tablet (50 mg total) by mouth 1 (one) time each day. 90 each 3 5 05/10/19 26 Active Xifaxan 550 mg tablet Take 1 tablet (550 mg total) by mouth 2 (two) times a day. 05/10/19 25 Discontinu ed(Reorder ) Active Problems Problem Noted Date Diagnosed Date Cancer, hepatocellular 10/01/2022 Encounters Date Type Department Care Team Description 05/17/2024 11:15 AM EDT Office Visit [facility] Hematology Oncology [address] [place] [phone] Ignacio Cohen MD Cancer, hepatocellular (CMS/HCC) (Primary Dx); Iron deficiency anemia due to chronic blood loss 05/09/2024 8:40 AM EST Office Visit Gastroenterology - [address] [phone] Darline Luu, REHAB AIDE Rectal bleeding (Primary Dx); Hepatocellular carcinoma (CMS/HCC); Alcoholic cirrhosis, unspecified whether ascites present (CMS/HCC) 05/06/2024 12:34 AM EST - 05/06/2024 6:09 AM EST Emergency [facility] Emergency [address] [place] [phone] Hui Brandt DO Gastrointestinal hemorrhage, unspecified gastrointestinal hemorrhage type (Primary Dx) Discharge Disposition: Home or Self Care 05/06/2024 Telephone [facility] Hematology Oncology [address] [place] [phone] [facility] 04/26/2024 12:15 PM EST - 04/26/2024 11:59 PM EST Hospital Encounter [facility] Ultrasound [address] [place] [phone] Cirrhosis of liver with ascites, unspecified hepatic cirrhosis type (CMS/HCC); Hepatocellular carcinoma (CMS/HCC) Discharge Disposition: Home or Self Care 04/14/2024 8:40 AM EST Office Visit Gastroenterology - [address] [phone] Darline Luu, FRANK Cirrhosis of liver with ascites, unspecified hepatic cirrhosis type (CMS/HCC) (Primary Dx); Hepatocellular carcinoma (CMS/HCC) 04/14/2024 Telephone Gastroenterology - [address] [phone] Rod Julia [place] 03/29/2024 1:15 PM EST Office Visit [facility] Hematology Oncology [address] [place] [phone] Ignacio Cohen MD Cancer, hepatocellular (CMS/HCC) (Primary Dx) from Last 3 Months Surgical History Surgery Date Site/Laterality Comments PARACENTESIS Medical History Medical History Date Comments Cirrhosis (CMS/HCC) Liver cancer (CMS/HCC) Social History Tobacco Use Types Packs/Day Years Used Date Smoking Tobacco: Former Cigarettes Smokeless Tobacco: Former Tobacco Cessation:Counseling Given: Not Answered Sex and Gender Information Value Date Recorded Sex Assigned at Male 04/22/2024 10:51 AM EST Legal Sex Male 3:32 PM EST Gender Identity Male 04/22/2024 10:51 AM EST Sexual Orientation Straight 04/26/2024 12 :12 PM EST Obstetrics History Last Filed Vital Signs Vital Sign Reading Time Taken Comments Blood Pressure 115/55 05/17/2024 10:58 AM EDT Pulse 58 05/17/2024 10:58 AM EDT Temperature 36.8 ??C (98.2 ??F) 05/17/2024 10:58 AM E DT Respiratory Rate 20 05/06/2024 1:15 AM EST Oxygen Saturation 98% 05/17/2024 10:58 AM EDT Inhaled Oxygen Concentration - - Weight 88 kg (194 lb) 05/17/2024 10:58 AM EDT Height 175.3 cm (5' 9 ) 05/09/2024 8:38 AM EST Body Mass Index 28.65 05/09/2024 8:38 AM EST Plan of Treatment Upcoming Encounters Date Type Department Care Team ([facility] st Contact Info) Description 06/15/2024 1:50 PM EDT Office Visit Gastroenterology - [address] [phone] Isiah Marcum MD [address] [phone] 06/28/2024 10:30 AM EDT Office Visit [facility] Hematology Oncology [address] [place] [phone] Ignacio Cohen MD [address] [place] [phone] 09/26/2024 9:00 AM EDT Office Visit [facility] Hematology Oncology [address] [place] [phone] Ignacio Cohen MD [address] [place] [phone] Health Maintenance Due Date Last [...] exists Diabetes: Annual GFR (Glomerular Filtration Rate) 05/17/2025 05/17/2024, 05/05/2024, 04/14/2024, Additional history exists Hypertension/CHF/CAD Annual BMP Blood Test 05/17/2025 05/17/2024, 05/05/2024, 04/14/2024, Additional history exists Hepatitis B Vaccines Completed 11/04/2017, 07/20/2007, 06/17/2007 [...] Procedure Name Priority Date/Time Associated Diagnosis Comments K ANTIGEN TYPE Routine 05/17/2024 12:16 PM EDT Iron deficiency anemia due to chronic blood loss E ANTIGEN TYPE Routine 05/17/2024 12:16 PM EDT Iron deficiency anemia due to chronic blood loss C ANTIGEN TYPE Routine 05/17/2024 12:16 PM EDT Iron deficiency anemia due to chronic blood loss CBC WITH AUTO DIFFERENTIAL Routine 05/17/2024 12:16 PM EDT Cancer, hepatocellular (CMS/HCC) TYPE AND SCREEN Routine 05/17/2024 12:16 PM EDT Iron deficiency anemia due to chronic blood loss COMPREHENSIVE METABOLIC PANEL Routine 05/17/2024 12:16 PM EDT Cancer, hepatocellular (CMS/HCC) CBC AND DIFFERENTIAL Routine 05/17/2024 12:16 PM EDT Cancer, hepatocellular (CMS/HCC) ECG ANNOTATED 05/07/2024 CT ANGIO ABDOMEN PELVIS WO AND/OR W CONTRAST STAT 05/06/2024 3:42 AM EST Gastrointestinal hemorrhage, unspecified gastrointestinal hemorrhage type XR CHEST 2 VIEWS STAT 05/05/2024 6:08 PM EST PAULINO URINE CULTURE TUBE STAT 05/05/2024 5:56 PM EST URINALYSIS WITH REFLEX MICROSCOPIC AND CULTURE STAT 05/05/2024 5:56 PM EST URINALYSIS WITH REFLEX MICROSCOPIC AND CULTURE STAT 05/05/2024 5:56 PM EST CULTURE URINE STAT 05/05/2024 5:56 PM EST ECG 12-LEAD STAT 05/05/2024 5:47 PM EST CBC WITH AUTO DIFFERENTIAL STAT 05/05/2024 5:41 PM EST AMMONIA STAT 05/05/2024 5:41 PM EST COMPREHENSIVE METABOLIC PANEL STAT 05/05/2024 5:41 PM EST CBC AND DIFFERENTIAL STAT 05/05/2024 5:41 PM EST US PARACENTESIS W IMAGE GUIDANCE Routine 04/26/2024 [...] Recently Relevant to Health Maintenance Results * K antigen type (05/17/2024 12:16 PM EDT) Pathologist [facility] K Antigen Negative 05/19/2024 2:16 PM EDT [facility] Blood Venous blood specimen / Unknown Venipuncture / Unknown 05/17/2024 12:16 PM EDT 05/17/2024 1:33 PM EDT us Ignacio Cohen MD LAB BLOOD BANK TEST ORDERAB LES Final Result [facility] [address] [place] [address], [place] [phone] * E antigen type (05/17/2024 12:16 PM EDT) E Antigen Negative 05/19/2024 2:15 PM EDT [facility] Blood Venous blood specimen / Unknown Venipuncture / Unknown 05/17/2024 12:16 PM EDT 05/17/2024 1:33 PM EDT us Ignacio Cohen MD LAB BLOOD BANK TEST ORDERAB LES Final Result Performing Organization Address City/[facility]/ZIP Co de Phone Number [facility] [address] [place] [address], [place] [phone] * C antigen type (05/17/2024 12:16 PM EDT) [facility] C Antigen Positive 05/19/2024 2:14 PM EDT [facility] Blood Venous blood specimen / Unknown Venipuncture / Unknown 05/17/2024 12:16 PM EDT 05/17/2024 1:33 PM EDT Ignacio Cohen MD LAB BLOOD BANK TEST ORDERAB LES Final Result Performing Organization Address [facility]/ZIP Co de Phone Number [facility] [address] [place] [address], [place] [phone] * (ABNORMAL) CBC auto differential (05/17/2024 12:16 PM EDT) Only the most recent of3 resultswithin the time period is included. [facility] WBC 2.6(L) 4.8 - 10.8 K/mcL LAB HEMETOLOGY METHOD 05/17/2024 1:53 PM EDT [facility] RBC 3.30(L) 4.50 - 5.50 M/mcL LAB HEMETOLOGY METHOD 05/17/2024 1:53 PM EDT [facility] Hemoglobin 10.3(L) 13.5 - 17.5 g/dL LAB HEMETOLOGY METHOD 05/17/2024 1:53 PM EDT [facility] Hematocrit 30.8(L) 42.0 - 54.0 % LAB HEMETOLOGY METHOD 05/17/2024 1:53 PM EDT [facility] MCV 93.9 79.0 - 98.0 FL LAB HEMETOLOGY METHOD 05/17/2024 1:53 PM EDT [facility] MCH 31.4 27.0 - 32.0 pcg LAB HEMETOLOGY METHOD 05/17/2024 1:53 PM EDT [facility] MCHC 33.4 32.0 - 37.0 g/dL LAB HEMETOLOGY METHOD 05/17/2024 1:53 PM EDT [facility] RDW 15.7(H) 11.0 - 15.0 % LAB HEMETOLOGY METHOD 05/17/2024 1:53 PM EDT [facility] Platelets 39(L) 130 - 400 K/mcL LAB HEMETOLOGY METHOD 05/17[facility]24 [facility]previously verified by slide MPV 12.5(H) 7.0 - 11.0 FL LAB HEMETOLOGY METHOD 05/17/2024 1:53 PM EDT [facility] NRBC 0.0 <1.0 % LAB HEMETOLOGY METHOD 05/17/2024 1:53 PM EDT [facility] NRBC Absolute 0.00 <0.10 K/mcL LAB HEMETOLOGY METHOD 05/17/2024 1:53 PM [facility] Neutrophils Relative 58.4 % LAB HEMETOLOGY METHOD 05/17/2024 [facility] Lymphocytes Relative 24.8 % LAB HEMETOLOGY METHOD 05/17/2024 1:53 PM EDT [facility] Monocytes Relative 14.0 % LAB HEMETOLOGY METHOD 05/17/2024 1:53 [facility] Eosinophils Relative 1.2 % LAB HEMETOLOGY METHOD 05/17/2024 1:53 PM [facility] Basophils Relative 0.4 % LAB HEMETOLOGY METHOD 05/17/2024 1:53 PM EDT [facility] Immature Granulocytes Relative 1.2 % LAB HEMETOLOGY METHOD 05/17/2024 1:53 PM EDT [facility] Neutrophils Absolute 1.51 1.50 - 7.00 K/[facility] LAB HEMETOLOGY METHOD 05/17/2024 1:53 PM EDT [facility] Lymphocytes Absolute 0.64(L) 1.00 - 5.00 K/[facility] LAB HEMETOLOGY METHOD 05/17/2024 1:53 PM EDT [facility] Monocytes Absolute 0.36 0.20 - 1.00 K/mcL LAB HEMETOLOGY METHOD 05/17/2024 1:53 PM EDT [facility] Eosinophils Absolute 0.03 0.00 - 0.50 K/[facility] LAB HEMETOLOGY METHOD 05/17/2024 1:53 PM EDT [facility] Basophils Absolute 0.01 0.00 - 0.20 K/[facility] LAB HEMETOLOGY METHOD 05/17/2024 1:53 PM EDT [facility] Immature Granulocytes Absolute 0.03 0.00 - 0.03 K/mcL LAB HEMETOLOGY METHOD 05/17/2024 1:53 PM EDT [facility] Blood Venous blood specimen / Unknown Venipuncture / Unknown 05/17/2024 12:16 PM EDT 05/17/2024 1:33 PM EDT us Ignacio Cohen MD LAB BLOOD ORDERABLES Final Result [facility] [address] [place] [address], * Type and screen (05/17/2024 12:16 PM EDT) ABO Group O 05/17/2024 2:21 PM EDT [facility] Rh Type Positive 05/17/2024 2:21 PM EDT [facility] Antibody Screen Negative 05/17/2024 2:21 PM EDT [facility] Blood Venous blood specimen / Unknown Venipuncture / Unknown 05/17/2024 12:16 PM EDT 05/17/2024 1:33 PM EDT us Ignacio Cohen MD LAB BLOOD BANK TEST ORDERAB LES Final Result [facility] [address] [place] [address], [place] [phone] * (ABNORMAL) Comprehensive metabolic panel (05/17/2024 12:16 PM EDT) Only the most recent of3 resultswithin the time period is included. Sodium 142 133 - 145 mmol/L LAB CHEMISTRY METHOD 05/17/2024 2:56 PM [facility] Potassium 5.1 3.5 - 5.5 mmol/L LAB CHEMISTRY METHOD 05/17/2024 2:56 PM [facility] Chloride 112(H) 96 - 110 mmol/L LAB CHEMISTRY METHOD 05/17/2024 2:56 PM [facility] CO2 23 21 - 32 mmol/L LAB CHEMISTRY METHOD 05/17/2024 2:56 PM [facility] Anion Gap 7 3 - 11 LAB CHEMISTRY METHOD 05/17/2024 2:56 PM [facility] Glucose 104(H) 70 - 100 mg/dL LAB CHEMISTRY METHOD 05/17/2024 2:56 PM [facility] BUN 25 5 - 25 mg/dL LAB CHEMISTRY METHOD 05/17/2024 2:56 PM [facility] Creatinine 2.13(H) 0.70 - 1.30 mg/dL LAB CHEMISTRY METHOD 05/17/2024 2:56 PM [facility] eGFR 33(L) >=60 mL/min/1. 73m2 LAB CHEMISTRY METHOD 05/17/2024 2:56 PM EDT [facility] Comment:Calculation based on the??Chronic Kidney Disease Epidemiology Collaboration (CKD-EPI) equation refit??without adjustment for race. BUN/Creatinine Ratio 11.7 LAB CHEMISTRY METHOD 05/17/2024 2:56 PM EDT [facility] Calcium 9.2 8.5 - 10.5 mg/dL LAB CHEMISTRY METHOD 05/17/2024 2:56 PM EDT [facility] AST (SGOT) 39 10 - 42 unit/L LAB CHEMISTRY METHOD 05/17/2024 2:56 PM [facility] ALT (SGPT) 45 10 - 60 unit/L LAB CHEMISTRY METHOD 05/17/2024 2:56 PM T [facility] Alkaline Phosphatase 208(H) 42 - 121 unit/L LAB CHEMISTRY METHOD 05/17/2024 2:56 PM EDT [facility] Total Protein 7.1 6.0 - 8.0 g/dL LAB CHEMISTRY METHOD 05/17/2024 2:56 PM EDT [facility] Albumin 3.3 3.2 - 5.0 g/dL LAB CHEMISTRY METHOD 05/17/2024 2:56 PM [facility] Total Bilirubin 1.7(H) 0.0 - 1.4 mg/dL LAB CHEMISTRY METHOD 05/17/2024 2:56 PM EDT [facility] Blood Venous blood specimen / Unknown Venipuncture / Unknown 05/17/2024 12:16 PM EDT 05/17/2024 1:34 PM EDT us Ignacio Cohen MD LAB BLOOD ORDERABLES Final Result [facility] [address] [place] [address], * ECG-Annotated (05/07/2024) us Provider Onbase MD ECG ORDERABLES Final Result * CT Angio Abdomen Pelvis wo and/or w Contrast (05/06/2024 3:42 AM EST) Anatomical Region Laterality Modality Body Computed Tomogra phy 05/06/2024 5:03 AM EST Addenda Addendum by Xochitl Sylvester MD on 05/06/2024 5:26 AM EST ADDENDUM: Receipt of this report by the clinical staff was confirmed with [employer] on May 06, 2024 05:24:00 EST. This document has been electronically signed by: Ronda Sandhu on 05/06/2024 05:26:53 Impressions 05/06/2024 5:03 AM EST Cirrhosis with moderate ascites and two suspicious liver masses. Advanced splenomegaly. 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 No abdominal aortic aneurysm or dissection. No contrast blush or pooling through the GI tract to suggest an active gastrointestinal bleed. 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 This document has been electronically signed by: Xochitl Sylvester MD on 05/06/2024 05:03:24 Narrative 05/06/2024 5:03 AM EST INDICATION: GI bleed CTA Abdomen and pelvis with and without IV contrast. GI bleed protocol. 3D MIP Post-processing. Comparison: None Findings: Atheromatous abdominal aortic calcifications without aneurysm or dissection. Celiac axis, superior and inferior mesenteric, and renal arteries patent. Mild stenoses at the origin of these vessels due to eccentric calcific plaque. Iliac arteries patent with extensive diffuse plaque but without significant stenosis. Portal vein patent. 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 No contrast blush or pooling through the GI tract to suggest an active gastrointestinal bleed. Moderate ascites. Advanced cirrhosis. 3.6 cm suspicious enhancing oval mass along the right lateral margin of the gallbladder. 1.4 cm suspicious mass lateral segment left lobe (axial image 46 delayed contrast sequence). Numerous calcified gallstones. No biliary ductal dilation. Splenomegaly at 18.1 x 12.0 x 17.1 cm. Spleen, pancreas, adrenal glands, and kidneys without acute pathology. Bilateral renal cysts and non-obstructing stones. No adenopathy. Pelvis without abnormal mass. No diverticulitis. No bowel obstruction. Dense retained colonic stool. No evidence for acute appendicitis. Bladder without acute pathology. No acute soft tissue pathology. No acute osseous abnormality. Procedure Note Xochitl Sylvester MD - 05/06/2024 INDICATION: GI bleed CTA Abdomen and pelvis with and without IV contrast. GI bleed protocol. 3D MIP Post-processing. Comparison: None Findings: Atheromatous abdominal aortic calcifications without aneurysm or dissection. Celiac axis, superior and inferior mesenteric, and renal arteriespatent. Mild stenoses at the origin of these vessels due to eccentric calcific plaque. Iliac arteries patent with extensive diffuse plaque but without significant stenosis. Portal vein patent. 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 No contrast blush or pooling through the GI tract to suggest an active gastrointestinal bleed. Moderate ascites. Advanced cirrhosis. 3.6 cm suspicious enhancing oval mass along theright lateral margin of the gallbladder. 1.4 cm suspicious mass lateralsegment left lobe (axial image 46 delayed contrast sequence). Numerous calcified gallstones. No biliary ductal dilation. Splenomegaly at 18.1 x 12.0 x 17.1 cm. Spleen, pancreas, adrenal glands, and kidneys without acute pathology. Bilateral renal cysts and non-obstructing stones. No adenopathy. Pelvis without abnormal mass. No diverticulitis. No bowel obstruction. Dense retained colonic stool. No evidence for acute appendicitis. Bladder without acute pathology. No acute soft tissue pathology. No acute osseous abnormality. IMPRESSION: Cirrhosis with moderate ascites and two suspicious liver masses. Advanced splenomegaly. 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 No abdominal aortic aneurysm or dissection. No contrast blush or pooling through the GI tract to suggest an active gastrointestinal bleed. 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 This document has been electronically signed by: Xochitl Sylvester MD on 05/06/2024 05:03:24 us Hui Brandt DO IMG CT PROCEDURES Edited Result - Final * XR Chest 2 Views (05/05/2024 6:08 PM EST) Anatomical Region Laterality Modality Body Radiographic Chen ging 05/06/2024 8:20 AM EST Impressions 05/06/2024 8:26 AM EST Mild pulmonary vascular congestion, similar to the previous study. -------- FINAL REPORT -------- Dictated By: Kadeem Coreas Dictated Date: 05/06/2024 08:20 ET Assigned Physician: Kadeem Coreas Reviewed and Electronically Signed By: Kadeem Coreas Signed Date: 05/06/2024 08:26 ET Workstation ID: [id number] Transcribed By: Self Edit Transcribed Date: 05/06/2024 08:20 ET Narrative 05/06/2024 8:26 AM EST PROCEDURE: PA and lateral radiographs of the chest. HISTORY: Delirium. COMPARISON: 04/13/2018. FINDINGS: Lungs and pleural spaces are clear. ??Mild cardiomegaly. ??Atherosclerotic calcifications of the aorta. ??Mild pulmonary vascular congestion. ??No pneumothorax or pleural effusion. ??Bones appear demineralized. ??Degenerative changes of the spine with a slight levoscoliosis at the thoracolumbar junction. Procedure Note Kadeem Coreas MD - 05/06/2024 PROCEDURE: PA and lateral radiographs of the chest. HISTORY: Delirium. COMPARISON: 04/13/2018. FINDINGS: Lungs and pleural spaces are clear. Mild cardiomegaly. Atheroscleroticcalcifications of the aorta. Mild pulmonary vascular congestion. Nopneumothorax or pleural effusion. Bones appear demineralized.Degenerative changes of the spine with a slight levoscoliosis at thethoracolumbar junction. IMPRESSION: Mild pulmonary vascular congestion, similar to the previous study. -------- FINAL REPORT -------- Dictated By: Kadeem Coreas Dictated Date: 05/06/2024 08:20 ET Assigned Physician: Kadeem Coreas Reviewed and Electronically Signed By: Kadeem Coreas Signed Date: 05/06/2024 08:26 ET Workstation ID: [id number] Transcribed By: Self Edit Transcribed Date: 05/06/2024 08:20 ET us Hui Brandt DO IMG XR PROCEDURES Final R esult * (ABNORMAL) Urinalysis with reflex microscopic and culture (05/05/2024 5:56 PM EST) Specific [place] Urine 1.016 1.003 - 1.030 LAB URINALYSIS - AUTOMATED METHOD 05/05/2024 7:14 PM [facility] pH, Urine 7.0 5.0 - 8.0 pH LAB URINALYSIS - AUTOMATED METHOD 05/05/2024 7:14 PM [facility] Leukocytes, Urine Trace(A) Negative LAB URINALYSIS - AUTOMATED METHOD 05/05/2024 7:14 PM [facility] Nitrite, Urine Negative Negative LAB URINALYSIS - AUTOMATED METHOD 05/05/2024 7:14 PM [facility] Protein, Urine Negative <=Trace mg/dL LAB URINALYSIS - AUTOMATED METHOD 05/05/2024 7:14 PM [facility] Glucose, Urine Negative Negative mg/dL LAB URINALYSIS - AUTOMATED METHOD 05/05/2024 7:14 PM [facility] Ketones, Urine Negative Negative mg/dL LAB URINALYSIS - AUTOMATED METHOD 05/05/2024 7:14 PM [facility] Urobilinogen, Urine 1.0 0.2 - 1.0 mg/dL LAB URINALYSIS - AUTOMATED METHOD 05/05/2024 7:14 PM [facility] Bilirubin, Urine Negative Negative LAB URINALYSIS - AUTOMATED METHOD 05/05/2024 7:14 PM [facility] Blood, Urine Negative Negative LAB URINALYSIS - AUTOMATED METHOD 05/05/2024 7:14 PM [facility] RBC, Urine 2.8 0 - 4 /HPF LAB URINALYSIS - AUTOMATED METHOD 05/05/2024 7:14 PM [facility] WBC, Urine 0.3 0 - 4 /HPF LAB URINALYSIS - AUTOMATED METHOD 05/05/2024 7:14 PM [facility] Squamous Epithelial, Urine 3 0 - 60 /LPF LAB URINALYSIS - AUTOMATED METHOD 05/05/2024 7:14 PM [facility] Bacteria, Urine Negative Negative /HPF LAB URINALYSIS - AUTOMATED METHOD 05/05/2024 7:14 PM [facility] Hyaline Casts, Urine 0.4 0 - 3 /LPF LAB URINALYSIS - AUTOMATED METHOD 05/05/2024 7:14 PM [facility] Urine Urine specimen obtained by clean catch procedure / Unknown Non-blood Collection / Unknown 05/05/2024 5:56 PM EST 05/05/2024 7:00 PM EST us [employer] Valerio Brandt LAB URINE ORDERABLES Jayleen l Result Performing Organization Address City/[facility]/ZIP Co de Phone Number [facility] [address] [place] [address], [place] [phone] * Paulino urine culture tube (05/05/2024 5:56 PM EST) Extra Tube Hold for add-ons. 05/05/2024 8:02 PM [facility] Comment:Auto resulted. Urine Urine specimen obtained by clean catch procedure / Unknown Non-blood Collection / Unknown 05/05/2024 5:56 PM EST 05/05/2024 7:00 PM EST [id number] LAB URINE ORDERABLES Jayleen l Result Performing Organization Address City/[facility]/ZIP Co de Phone Number [facility] [address] [place] [address], [place] [phone] * Culture urine (05/05/2024 5:56 PM EST) Culture, Urine No growth 05/06/2024 1:29 PM EST [facility] Urine Urine specimen obtained by clean catch procedure / Unknown Non-blood Collection / Unknown 05/05/2024 5:56 PM EST 05/05/2024 7:14 PM EST us Ames Alex Teodoro Brandt DO LAB MICROBIOLOGY - GENERA L ORDERABLES Final Result Performing Organization Address [facility]/ZIP Co de Phone Number [facility] [address] [place] [address], [place] [phone] * ECG 12 lead (05/05/2024 5:47 PM EST) Ventricular Rate ECG 57 BPM GEMUSE Atrial Rate 57 BPM GEMUSE P-R Interval 116 ms GEMUSE QRS Duration 130 ms GEMUSE Q-T Interval 492 ms GEMUSE QTc 478 ms GEMUSE P Wave [place] 49 degrees GEMUSE R [place] -19 degrees GEMUSE T [place] 17 degrees GEMUSE ECG Interpretation Sinus bradycardia Right bundle branch block Abnormal ECG When compared with ECG of 18-JAN-2019 18:26, Right bundle branch block has replaced Incomplete right bundle branch block Confirmed by CARMENCITA DASH ([id number]) on 05/06/2024 7:13:42 AM GEMUSE 05/05/2024 5:47 PM EST 05/06/2024 7:13 AM EST us Hui Brandt DO ECG ORDERABLES Final Res ult GEMUSE * (ABNORMAL) Ammonia (05/05/2024 5:41 PM EST) Ammonia 100(H) 11 - 35 mcmol/L LAB CHEMISTRY METHOD 05/05/2024 7:05 PM EST [facility] Comment:Results verified by repeat testing Blood Venous blood specimen / Unknown Venipuncture / Unknown 05/05/2024 5:41 PM EST 05/05/2024 5:53 PM EST us Hui Brandt DO LAB BLOOD ORDERABLES Jayleen l Result [facility] [address] [place] [address], * US Paracentesis w Image Guidance (04/26/2024 12:57 PM EST) Anatomical Region Laterality Modality Abdomen Ultrasound 04/26/2024 2:02 PM EST Impressions 04/26/2024 3:31 PM EST Successful paracentesis of 1.5 L of dnoovan-colored fluid without complications. -------- FINAL REPORT -------- Dictated By: Mellissa Martins Dictated Date: 04/26/2024 14:02 ET Assigned Physician: Corwin Madrigal Reviewed and Electronically Signed By: Corwin Madrigal Signed Date: 04/26/2024 15:31 ET Workstation ID: [id number] Transcribed By: Self Edit Transcribed Date: 04/26/2024 14:02 ET Resident/PA/REHAB AIDE: Mellissa Martins Narrative 04/26/2024 3:31 PM EST [...] Signed Date: 04/26/2024 15:31 ET Workstation ID: [id number] Transcribed By: Self Edit Transcribed Date: 04/26/2024 14:02 ET Resident/PA/REHAB AIDE: Mellissa Martins us Darline Luu NP IMG US PROCEDURES Final Resul t * Alpha fetoprotein tumor marker (04/14/2024 8:33 AM EST) AFP 3.2 0.0 - 8.0 ng/mL LAB CHEMISTRY METHOD 04/14/2024 9:45 AM EST [facility] Blood Venous blood specimen / Unknown Venipuncture / Unknown 04/14/2024 8:33 AM EST 04/14/2024 8:57 AM EST Narrative [facility] - 04/14/2024 9:45 AM EST The Siemens Advia Centaur Chemiluminescent Immunoassay is used. Results obtained with different assay methods or kits cannot be used interchangeably. Results cannot be interpreted as absolute evidence of the presence or absence of malignant disease. us Darline Luu NP LAB BLOOD ORDERABLES Final Re sult [facility] [address] [place] [address], [place] [phone] * (ABNORMAL) Prothrombin time with INR (04/14/2024 8:33 AM EST) Protime 16.4(H) 10.6 - 13.9 sec LAB COAGULATION METHOD 04/14/2024 9:34 AM EST [facility] INR 1.3 LAB COAGULATION METHOD 04/14/2024 9:34 AM EST [facility] Blood Venous blood specimen / Unknown Venipuncture / Unknown 04/14/2024 8:33 AM EST 04/14/2024 8:57 AM EST us Darline Luu NP LAB BLOOD ORDERABLES Final Re sult [facility] [address] [place] [address], [place] [phone] * HISTORICAL IMAGING SCAN RESULT (03/29/2024) Anatomical Region Laterality Modality Ultrasound us Provider Onbase MD IMG US PROCEDURES Final Resul t * Miscellaneous reference lab test (03/29/2024) us Provider Onbase MD LAB BLOOD ORDERABLES Final Re sult * Hemoglobin A1c (12/24/2016) Pathologist [facility] Hemoglobin A1C 5.4 % Blood Venous blood specimen / Unknown us Historical Provider MD LAB BLOOD ORDERABLES Jayleen l Result from Last 3 Months or Most Recently Relevant to Health Maintenance Insurance MEDICARE MEDICAID - [place] Care Teams Recruiting Coordinator Relationship Specialty Start Date End Date Suzan Briscoe MD PCP - General Internal Medicine 04/11/24
--- OUTSIDE RECORDS SUMMARY | 2024-05-25 09:36 | XMS_ITS | Clinical Summary ---
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 [address] [facility] [address] [place] [address] Vee Reynolds ARNP Stage 3a chronic kidney disease (HCC); Hypertension; Anemia in chronic kidney disease; Secondary hyperparathyroidism of renal origin (HCC) from Last 3 Months Immunizations Name Administration Dates Next Due Influenza [...] 12/03/2022 1:12 PM EDT Plan of Treatment Health Maintenance Due [...] [place] Care Teams Hand Binder Stripper Relationship Specialty Start Date End Date Suzan Briscoe MD [place] [address] PCP - General 03/19/20
--- OUTSIDE RECORDS SUMMARY | 2024-05-25 09:36 | XMS_ITS | Encounter Summary ---
Author Organization [facility] Address [address] [place] [address] Care Team Providers Care Production Floater Name Role Phone Suzan Briscoe MD Primary Care Provider [phone] Reason for Referral * Imaging (Routine) - Closed Specialty Diagnoses / Procedures Referred By Shar roberts Referred To Contact Radiology Diagnoses Cirrhosis of liver with ascites, unspecified hepatic cirrhosis type (CMS/HCC) Hepatocellular carcinoma (CMS/HCC) Procedures US Paracentesis w Image Guidance Darline Luu NP [address] [address] Phone: tel: fax: [facility] Referral ID Status Reason Start Date Expiration Date Visits Re quested Visits Authorized [id number] Closed 04/25/2024 04/25/2025 1 1 Reason for Visit * Imaging (Routine) - Closed Specialty Diagnoses / Procedures Referred By Shar roberts Referred To Contact Radiology Diagnoses Cirrhosis of liver with ascites, unspecified hepatic cirrhosis type (CMS/HCC) Hepatocellular carcinoma (CMS/HCC) Procedures US Paracentesis w Image Guidance Darline Luu NP [address] [address] Phone: tel: fax: [facility] Referral ID Status Reason Start Date Expiration Date Visits Re quested Visits Authorized [id number] Closed 04/25/2024 04/25/2025 1 1 Encounter Details Date Type Department Care Team (Latest Contact Info) Description 04/26/2024 12:15 PM EST - 04/26/2024 11:59 PM EST Hospital Encounter [facility] Ultrasound [address] [place] [phone] Cirrhosis of liver with ascites, unspecified hepatic [...] by mouth 2 (two) times a day. 05/09/2024 documented as of this encounter Discharge Disposition Disposition Code Departure Means Destination Home or Self Care documented in this encounter Plan of Treatment Upcoming Encounters Date Type Department Care Team (Late st Contact Info) Description 06/15/2024 1:50 PM EDT Office Visit Gastroenterology - [address] [facility] [address] [place] [phone] Isiah Marcum MD 299 [facility] [place] [address] [place] [address] 06/28/2024 10:30 AM EDT Office Visit [facility] Hematology Oncology [address] [place] [phone] Ignacio Cohen MD [address] [place] [address] 09/26/2024 9:00 AM EDT Office Visit [facility] Hematology Oncology [address] [place] [address] Ignacio Cohen MD [address] [place] [address] documented as of this encounter [...] Signed Date: 04/26/2024 15:31 ET Workstation ID: [id number] Transcribed By: Self Edit Transcribed Date: 04/26/2024 14:02 ET Resident/PA/GUEST SERVICES ATTENDANT: Mellissa Martins Narrative 04/26/2024 3:31 PM EST [...] Signed Date: 04/26/2024 15:31 ET Workstation ID: [id number] Transcribed By: Self Edit Transcribed Date: 04/26/2024 14:02 ET Resident/PA/GUEST SERVICES ATTENDANT: Mellissa Martins us Darline Luu NP IMG [...] 04/26/2024 documented in this encounter Care Teams Production Floater Relationship Specialty Start Date End Date Suzan Briscoe MD PCP - General Internal Medicine 04/11/24 documented as of this encounter
--- OUTSIDE RECORDS SUMMARY | 2024-05-25 09:36 | XMS_ITS | Encounter Summary ---
Author Organization [employer] Address [address] [place] [address] Care Team Providers Care Telephone Operators Supervisor Name Role Phone Suzan Briscoe MD Primary Care Provider [phone] Reason for Visit * Reason Comments Follow-up 4 wk fu * Consultation (Urgent) - Closed Specialty Diagnoses / Procedures Referred By Contac t Referred To Contact Gastroenterology Diagnoses Lower GI bleed uHi Brandt, DO [address] [place] [address] Phone: tel: fax: Gastroenterology - [address] [address] Phone: tel: fax: Referral ID Status Reason Start Date Expiration Date V isits Requested Visits Authorized [id number] Closed Specialty Services Required 05/06/2024 05/06/2025 1 1 Encounter Details Date Type Department Care Team (Late st Contact Info) Description 05/09/2024 8:40 AM EST Office Visit Gastroenterology - [address] [place] [address] [facility] [address] [phone] Darline Luu, FRANK [address] [address] Rectal bleeding (Primary Dx); Hepatocellular carcinoma (CMS/HCC); Alcoholic cirrhosis, unspecified whether ascites present (CMS/HCC) Social History Tobacco Use Types Packs/Day [...] - Inhaled Oxygen Concentration - - Weight 92.5 kg (204 lb) 05/09/2024 8:38 AM EST Height 175.3 cm (5' 9 ) 05/09/2024 8:38 AM EST Body Mass Index 30.13 05/09/2024 8:38 AM EST documented in this encounter Ordered Prescriptions Prescription Sig Dispense Quantity Refills Last Filled Start Date End Date spironolactone (ALDACTONE) 50 mg tabletIndications: Rectal bleeding,Hepatocel lular carcinoma (CMS/HCC),Alcoholi c cirrhosis, unspecified whether ascites present (CMS/HCC) Take 1 tablet (50 mg total) by mouth 1 (one) time each day. 90 each 3 05/09/2024 05/09/2025 Xifaxan 550 mg tabletIndications: Rectal bleeding,Hepatocel lular carcinoma (CMS/HCC),Alcoholi c cirrhosis, unspecified whether ascites present (CMS/HCC) Take 1 tablet (550 mg total) by mouth 2 (two) times a day. 180 tablet 1 05/09/2024 documented in this encounter Progress Notes * Darline Luu, FRANK - 05/09/2024 8:40 AM EST CHIEF COMPLAINT: Follow-up (4 wk fu) DATE OF LAST ENDOSCOPIC PROCEDURES: HPI: Lucien Rowland is a 68 y.o. old male who was originally referred to us by Szuan Briscoe MD now presents to the gastroenterology department today for a follow after having been in the ER last week with complaint of seeing BRB with his bowel movement and on the toilet paper for one day. This occurred during an episode of diarrhea. We reviewed his ER evaluartion together today. His bloodwork was abnormal but stable. Hgb 10.1, Hct 29.6 and Plt 34. He denies any bleeding over the past 2 days and states his bowels are moving ok without constipation or diarrhea. I suspect that his bleeding was just hemorrhoidal. His last colonoscou was 09/2022 and we would not repeat that at this time. He denies black stool or melena. He is on a PPI. His last EGD also in September of 2022 showed Grade 1 varicies with plan to repeat EGD in 2025. At this point we would hold off on repeating this. He underwet=nt CT Angio of the abdomen and pelvis in the ER showing no active bleeding, a nonocclusive thrombus in the superior maesenteric vein. Radiology remarks about two suspicios liver masses. He has a call out to his oncologist Dr. Cohen for followup of this. ROS: GENERAL: No malaise, significant weight loss [...] Right LL ORIF Ablation of liver lesions [facility] IR SOCIAL HISTORY: EtOH abuse Quit drinking in 2012 Quit tobacco 2012 IVDA none since FAMILY HISTORY: No family history on file. ACTIVE MEDICATIONS: Allopurinol Amlodipine 10mg QD ASA 81mg QD Citalopram 40mg QD Metoprolol 50mg QD Omeprazole 20mg QD Xifaxan 550mg BID ALLERGIES: Allergies Allergen Reactions Acetaminophen Codeine Other Reaction(s): cirrhosis Other reaction(s): cirrhosis Ibuprofen PHYSICAL EXAM: Visit Vitals Ht 1.753 m (69 ) Wt 92.5 kg (204 lb) BMI 30.13 kg/m?? Smoking Status Former BSA 2.08 m?? APPEARANCE: Alert and in no acute distress Anicteric EYES: PERRLA, conjunctiva and sclera normal. HEART: RRR with normal S1 and S2, no murmurs appreciated LUNG: clear to auscultation ABDOMEN: soft reducible umbilical hernia, nontender NEURO: Awake, alert and oriented x 3 Assessment & Plan Rectal bleeding Suspect due to hemorrhoids. Resolved, recent colonoscopy Observe for now Orders: Xifaxan 550 mg tablet; Take 1 tablet (550 mg total) by mouth 2 (two) times a day. spironolactone (ALDACTONE) 50 mg tablet; Take 1 tablet (50 mg total) by mouth 1 (one) time each day. Hepatocellular carcinoma (CMS/HCC) 2 suspicious liver lesions seen (? Old ablation sites) Pt following up with oncologist Dr. Cohen Orders: Xifaxan 550 mg tablet; Take 1 tablet (550 mg total) by mouth 2 (two) times a day. spironolactone (ALDACTONE) 50 mg tablet; Take 1 tablet (50 mg total) by mouth 1 (one) time each day. Alcoholic cirrhosis, unspecified whether ascites present (CMS/HCC) Start Spironolactone 50mg QD Low sodium diet Labs stable Continue current treatment plan OV 6 weeks Orders: Xifaxan 550 mg tablet; Take 1 tablet (550 mg total) by mouth 2 (two) times a day. spironolactone (ALDACTONE) 50 mg tablet; Take 1 tablet (50 mg total) by mouth 1 (one) time each day. Follow up in about 6 weeks (around 06/20/2024). I would like to thank Suzan Briscoe MD for the opportunity to partake in the patient's care. Board Certified Gastroenterology [facility] W [phone] [place] [phone] [email or web address] Darline Luu NP documented in this encounter Plan of Treatment Upcoming Encounters Date Type Department Care Team (Late st Contact Info) Description 06/15/2024 1:50 PM EDT Office Visit Gastroenterology - [address] [phone] Isiah Marcum MD [address] [address] 06/28/2024 10:30 AM EDT Office Visit [facility] Hematology Oncology [address] [place] [phone] Ignacio Cohen MD [address] [place] [address] 09/26/2024 9:00 AM EDT Office Visit [facility] Hematology Oncology [address] [place] [phone] Ignacio Cohen MD [address] [place] [address] documented as of this encounter Visit Diagnoses Diagnosis Rectal bleeding- Primary Hemorrhage of rectum and anus Hepatocellular carcinoma (CMS/HCC) Malignant neoplasm of liver, primary Alcoholic cirrhosis, unspecified whether ascites present (CMS/HCC) documented in this encounter Discontinued Medications Medication Sig Discontinue Reason Start Date End Da te Xifaxan 550 mg tablet Take 1 tablet (550 mg total) by mouth 2 (two) times a day. Reorder 05/09/2024 documented as of this encounter Orders Outpatient Referral Count Last Ordered Date Fir st Ordered Date AMB REFERRAL TO GASTROENTEROLOGY 1 05/10/19 documented in this encounter Care Teams Telephone Operators Supervisor Relationship Specialty Start Date End Date Szuan Briscoe MD PCP - General Internal Medicine 04/11/24 documented as of this encounter
--- OUTSIDE RECORDS SUMMARY | 2024-05-25 09:36 | XMS_ITS | Encounter Summary ---
Author Organization [employer] Address [address] [place] [address] Care Team Providers Care Map Plotter Name Role Phone Suzan Briscoe MD Primary Care Provider [phone] Reason for Visit * Reason Comments Follow-up Encounter Details Date Type Department Care Team (Latest Contact Info) Description 05/17/2024 11:15 AM EDT Office Visit [facility] Hematology Oncology [address] [place] [address] Ignacio Cohen MD [address] [place] [phone] Cancer, hepatocellular (CMS/HCC) (Primary Dx); Iron deficiency anemia due to chronic blood loss Social History Tobacco Use Types Packs/Day Years [...] 05/17/2024 10:58 AM E DT Respiratory Rate - - Oxygen Saturation 98% 05/17/2024 10:58 AM EDT Inhaled Oxygen Concentration - - Weight 88 kg (194 lb) 05/17/2024 10:58 AM EDT Height - - Body Mass Index 28.65 05/09/2024 8:38 AM EST documented in this encounter Plan of Treatment Upcoming Encounters Date Type Department Care Team (Late st Contact Info) Description 06/15/2024 1:50 PM EDT Office Visit Gastroenterology - [address] [phone] Isiah Marcum MD [address] [address] 06/28/2024 10:30 AM EDT Office Visit [facility] Hematology Oncology [address] [place] [phone] Ignacio Cohen MD [address] [place] [phone] 09/26/2024 9:00 AM EDT Office Visit [facility] Hematology Oncology [address] [place] [phone] Ignacio Cohen MD [address] [place] [phone] Scheduled Orders Name Type Priority Associated Diagnoses Orde r Schedule CBC and differential Lab Routine Cancer, hepatocellular (CMS/HCC) Every 12 weeks for 4 Occurrences starting 05/17/2024 until 05/17/2025, 1 completed documented as of this encounter Results * Type and screen (05/17/2024 12:16 PM EDT) ABO Group O 05/17/2024 2:21 PM EDT [facility] Rh Type Positive 05/17/2024 2:21 PM EDT [facility] Antibody Screen Negative 05/17/2024 2:21 PM EDT [facility] Blood Venous blood specimen / Unknown Venipuncture / Unknown 05/17/2024 12:16 PM EDT 05/17/2024 1:33 PM EDT Ignacio Cohen MD LAB BLOOD BANK TEST ORDERAB LES Final Result [facility] [address] [place] [address], * (ABNORMAL) Comprehensive metabolic panel (05/17/2024 12:16 PM EDT) Sodium 142 133 - 145 mmol/L LAB CHEMISTRY METHOD 05/17/2024 2:56 PM EDT [facility] Potassium 5.1 3.5 - 5.5 mmol/L LAB CHEMISTRY METHOD 05/17/2024 2:56 PM EDT [facility] Chloride 112(H) 96 - 110 mmol/L LAB CHEMISTRY METHOD 05/17/2024 2:56 PM EDT [facility] CO2 23 21 - 32 mmol/L LAB CHEMISTRY METHOD 05/17/2024 2:56 PM EDT [facility] Anion Gap 7 3 - 11 LAB CHEMISTRY METHOD 05/17/2024 2:56 PM EDT [facility] Glucose 104(H) 70 - 100 mg/dL LAB CHEMISTRY METHOD [facility]/17[facility]24 [facility] BUN 25 5 - 25 mg/dL LAB CHEMISTRY METHOD 05/17/2024 2:56 PM EDT [facility] Creatinine 2.13(H) 0.70 - 1.30 mg/dL LAB CHEMISTRY METHOD 05/17/2024 2:56 PM EDT [facility] eGFR 33(L) >=60 mL/min/1. 73m2 LAB CHEMISTRY METHOD 05/17/2024 2:56 PM EDT [facility] Comment:Calculation based on the??Chronic Kidney Disease Epidemiology Collaboration (CKD-EPI) equation refit??without adjustment for race. BUN/Creatinine Ratio 11.7 LAB CHEMISTRY METHOD 05/17/2024 2:56 PM EDT [facility] Calcium 9.2 8.5 - 10.5 mg/dL LAB CHEMISTRY METHOD 05/17/2024 2:56 PM EDT [facility] AST (SGOT) 39 10 - 42 unit/L LAB CHEMISTRY METHOD 05/17/2024 2:56 PM EDT [facility] ALT (SGPT) 45 10 - 60 unit/L LAB CHEMISTRY METHOD 05/17/2024 2:56 PM EDT [facility] Alkaline Phosphatase 208(H) 42 - 121 unit/L LAB CHEMISTRY METHOD 05/17/2024 2:56 PM EDT [facility] Total Protein 7.1 6.0 - 8.0 g/dL LAB CHEMISTRY METHOD 05/17/2024 2:56 PM EDT [facility] Albumin 3.3 3.2 - 5.0 g/dL LAB CHEMISTRY METHOD 05/17/2024 2:56 PM EDT [facility] Total Bilirubin 1.7(H) 0.0 - 1.4 mg/dL LAB CHEMISTRY METHOD 05/17/2024 2:56 PM EDT [facility] Blood Venous blood specimen / Unknown Venipuncture / Unknown 05/17/2024 12:16 PM EDT 05/17/2024 1:34 PM EDT us Ignacio Cohen MD LAB BLOOD ORDERABLES Final Result [facility] [address] [place] [address], documented in this encounter Visit Diagnoses Diagnosis Cancer, hepatocellular (CMS/HCC)- Primary Malignant neoplasm of liver, primary Iron deficiency anemia due to chronic blood loss Iron deficiency anemia secondary to blood loss (chronic) documented in this encounter Care Teams Map Plotter Relationship Specialty Start Date End Date Suzan Briscoe MD PCP - General Internal Medicine 04/11/24 documented as of this encounter
--- OUTSIDE RECORDS SUMMARY | 2024-05-25 09:36 | XMS_ITS | Clinical Summary ---
Author Organization [employer] [facility] Address [address] [place] [address] Care Team Providers Care Hinging Machine Operator Name Role Phone Suzan Briscoe MD Primary Care Provider [phone] Allergies Active Allergy Reactions Criticality Noted Date [...] age to complete this topic Care Teams Hinging Machine Operator Relationship Specialty Start Date End Date Suzan Briscoe MD [address] [place] [phone] PCP - General Assistant Pressman 09/11/22
--- OUTSIDE RECORDS SUMMARY | 2024-05-25 09:37 | XMS_ITS | Encounter Summary ---
Author Organization [facility] Address [address] [place] [address] Care Team Providers Care Wrapper Leaf Inspector Name Role Phone Suzan Briscoe MD Primary Care Provider [phone] Reason for Referral * Consultation (Urgent) - Closed Specialty Diagnoses / Procedures Referred By Shar roberts Referred To Contact Gastroenterology Diagnoses Lower GI bleed Hui Brandt DO [address] [place] [address] Phone: tel: fax: Gastroenterology - 299 [facility] [address] [address] Phone: tel: fax: Referral ID Status Reason Start Date Expiration Date V isits Requested Visits Authorized [id number] Closed Specialty Services Required 05/06/2024 05/06/2025 1 1 Reason for Visit * Reason Comments Black or Bloody Stool Encounter Details Date Type Department Care Team (Latest Contact Info) Description 05/06/2024 12:34 AM EST - 05/06/2024 6:09 AM EST Emergency [facility] Emergency [address] [place] [phone] Hui Brandt DO [address] [place] [address] Gastrointestinal hemorrhage, unspecified gastrointestinal hemorrhage type (Primary Dx) Discharge Disposition: Home or Self Care Social [...] Sign Reading Time Taken Comments Blood Pressure 125/83 05/06/2024 1:15 AM EST Pulse 63 05/06/2024 1:15 AM EST Temperature 37.1 ??C (98.8 ??F) 05/06/2024 1:15 AM ES T Respiratory Rate 20 05/06/2024 1:15 AM EST Oxygen Saturation 97% 05/06/2024 1:15 AM EST Inhaled Oxygen Concentration - - Weight 88 kg (194 lb) 05/05/2024 3:33 PM EST Height 175.3 cm (5' 9 ) 05/05/2024 3:33 PM EST Body Mass Index 28.65 05/05/2024 3:33 PM EST documented in this encounter Medications at Time of Discharge [...] Discharge Disposition Disposition Code Departure Means Destination Comment s Home or Self Care documented in this encounter Progress Notes * Cornelio Rice RN - 05/05/2024 3:24 PM EST Pt c/o diarrhea x2 days, burgundy color stool today. Endorses epigastric pain. H/O cirrhosis. * Hui Brandt DO - 05/05/2024 3:21 PM EST Emergency Medicine Note Patient Name: Lucien Rowland Initial Evaluation: 05/05/2024 : 1955 Patient's PCP: Suzan Briscoe MD Emergency Physician: Hui Brandt DO History of Present Illness Chief Complaint: Chief Complaint Patient presents with Black or Bloody Stool HPI: This is a 68-year-old male history of hepatocellular carcinoma diagnosed on 09/2022, alcoholic induced cirrhosis, CKD, CVA, hypertension presented hospital today for bright rectal bleed. Patient stated that he was having some episode of diarrhea today where he noticed that he has bright blood in the toilet. He has bright blood when he wipes. Denies any hemorrhoids or rectal pain. He state he doeshave symptoms of tenesmus. Denies any hematochezia or nausea or vomiting. History of esophageal varices on previous EGD on 09/[address] Marcum he was found to have 3 columns of grade 1 varices with no bleed. Patient also have bleeding in the distal esophagus. And signs of nonbleeding internal hemorrhoids on colonoscopy. ROS: I have performed a ROS with the pertinent positives and negatives documented in the history ofpresent illness. Previous History Past Medical History: Diagnosis Date Cirrhosis (CMS/HCC) Liver cancer (CMS/HCC) Past Surgical History: Procedure Laterality Date PARACENTESIS Social History Tobacco Use Smoking status: Former Types: Cigarettes Smokeless tobacco: Former No family history on file. is allergic to acetaminophen and ibuprofen. No current facility-administered medications on file prior to encounter. Current Outpatient Medications on File Prior to Encounter Medication Sig Dispense Refill allopurinoL (ZYLOPRIM) 300 mg tablet Take 1 tablet (300 mg total) by mouth 1 (one) time each day. amLODIPine (NORVASC) 10 mg tablet Take 1 tablet (10 mg total) by mouth 1 (one) time each day. aspirin 81 mg EC tablet Take 1 tablet (81 mg total) by mouth 1 (one) time each day. citalopram (CeleXA) 40 mg tablet Take 1 tablet (40 mg total) by mouth 1 (one) time each day. metoprolol succinate 50 mg capsule,sprinkle,ER 24hr Take by mouth. omeprazole (PriLOSEC) [address] capsule Take 1 capsule (20 mg total) by mouth 1 (one) time each day. Xifaxan 550 mg tablet Take 1 tablet (550 mg total) by mouth 2 (two) times a day. Physical Exam ED Triage Vitals [05/05/24 1533] Temp Heart Rate Resp BP 36.4 ??C (97.5 ??F) 61 18 100/73 SpO2 Temp Source Heart Rate Source Patient Position 98 % Oral -- -- BP Location FiO2 (%) -- -- General: Pleasant, no distress, interacting appropriately Head: Normacephalic, atraumatic ENT: oral mucosa moist, neck supple, no tracheal deviation Cardiovascular: regular rate, regular rhythm, no murmurs, rubbing, gallops Respiratory: CTAB, no wheeze, rales, rhonchi Gastrointestinal: Soft, non distended, non tender, non guarding Rectal: No sign of external hemorrhoids, no sign of anal fissure on exam. No sign of active bleeding Extremities: No limb pain or swelling, no calf tenderness Neurological: Awake and alert, no facial droop noted Skin: Warm and dry Psychiatric: Appropriate mood and thoughts Results Labs Reviewed COMPREHENSIVE METABOLIC PANEL - Abnormal Result Value Sodium 136 Potassium 4.9 Chloride 108 CO2 24 Anion Gap 4 Glucose 94 BUN 27 (*) Creatinine 1.81 (*) eGFR 40 (*) BUN/Creatinine Ratio 14.9 Calcium 8.9 AST (SGOT) 57 (*) ALT (SGPT) 61 (*) Alkaline Phosphatase 217 (*) Total Protein 6.9 Albumin 3.2 Total Bilirubin 1.9 (*) AMMONIA - Abnormal Ammonia 100 (*) CBC WITH AUTO DIFFERENTIAL - Abnormal WBC 2.8 (*) RBC 3.30 (*) Hemoglobin 10.1 (*) Hematocrit 29.6 (*) MCV 90.8 MCH 31.0 MCHC 34.1 RDW 15.9 (*) Platelets 34 (*) MPV 12.1 (*) NRBC 0.0 NRBC Absolute 0.00 Neutrophils Relative 52.6 Lymphocytes Relative 30.6 Monocytes Relative 13.9 Eosinophils Relative 1.8 Basophils Relative 0.4 Immature Granulocytes Relative 0.7 Neutrophils Absolute 1.48 (*) Lymphocytes Absolute 0.86 (*) Monocytes Absolute 0.39 Eosinophils Absolute 0.05 Basophils Absolute 0.01 Immature Granulocytes Absolute 0.02 URINALYSIS WITH REFLEX MICROSCOPIC AND CULTURE - Abnormal Specific [place] Urine 1.016 pH, Urine 7.0 Leukocytes, Urine Trace (*) Nitrite, Urine Negative Protein, Urine Negative Glucose, Urine Negative Ketones, Urine Negative Urobilinogen, Urine 1.0 Bilirubin, Urine Negative Blood, Urine Negative RBC, Urine 2.8 WBC, Urine 0.3 Squamous Epithelial, Urine 3 Bacteria, Urine Negative Hyaline Casts, Urine 0.4 CULTURE URINE CBC AND DIFFERENTIAL Narrative: The following orders were created for panel order CBC and differential. Procedure Abnormality Status --------- ------ CBC auto differential[[id number]] Abnormal Final result Please view results for these tests on the individual orders. URINALYSIS WITH REFLEX MICROSCOPIC AND CULTURE Narrative: The following orders were created for panel order Urinalysis with reflex microscopic and culture. Procedure Abnormality Status --------- ------ Urinalysis with reflex ...[[id number]] Abnormal Final result Paulino urine culture tube[[id number]] Final result Please view results for these tests on the individual orders. POC GLUCOSE Abnormal Labs Reviewed COMPREHENSIVE METABOLIC PANEL - Abnormal; Notable for the following components: Result Value BUN 27 (*) Creatinine 1.81 (*) eGFR 40 (*) AST (SGOT) 57 (*) ALT (SGPT) 61 (*) Alkaline Phosphatase 217 (*) Total Bilirubin 1.9 (*) All other components within normal limits AMMONIA - Abnormal; Notable for the following components: Ammonia 100 (*) All other components within normal limits CBC WITH AUTO DIFFERENTIAL - Abnormal; Notable for the following components: WBC 2.8 (*) RBC 3.30 (*) Hemoglobin 10.1 (*) Hematocrit 29.6 (*) RDW 15.9 (*) Platelets 34 (*) MPV 12.1 (*) Neutrophils Absolute 1.48 (*) Lymphocytes Absolute 0.86 (*) All other components within normal limits URINALYSIS WITH REFLEX MICROSCOPIC AND CULTURE - Abnormal; Notable for the following components: Leukocytes, Urine Trace (*) All other components within normal limits CT Angio Abdomen Pelvis wo and/or w Contrast Final Result Addendum (preliminary) ADDENDUM: Receipt of this report by the clinical staff was confirmed with [employer] on May 06, 2024 05:24:00 EST. This document has been electronically signed by: Ronda Sandhu on 05/06/2024 05:26:53 Final Cirrhosis with moderate ascites and two suspicious [...] by: Xochitl Sylvester MD on 05/06/2024 05:03:24 XR Chest 2 Views (Results Pending) I have discussed the incidental/abnormal imaging and/or lab abnormalities with the patient and haveinstructed them the need for further evaluation and workup with their primary care doctor. I have provided the patient with a paper copy of the abnormality. The laboratory results, imaging results and other diagnostic exam results were reviewed in the EMR. EKG Interpretation Critical Care Time None ? Medical Decision Making Medications pantoprazole (PROTONIX) injection 80 mg (80 mg intravenous Given 05/06/24 0126) sodium chloride 0.9 % flush 10 mL (10 mL intravenous Given 05/06/24332) iopamidoL (ISOVUE-370) 370 mg iodine /mL (76 %) injection 90 mL (90 mL intravenous Given 05/06/24332) ED Course as of 05/06/24 0550 ThuMay 06, 2024 0208 This is a 68-year-old male history of hepatocellular carcinoma, alcoholic induced cirrhosis, CKD, CVA, hypertension presented hospital today for right GI bleed. I suspect patient has a lower GI bleed. No signs of obvious hemorrhoids on rectal exam. Signs of anal fissure. Given patient history of cirrhosis patient generally high risk of bleed. Patient does have thrombocytopenia. Plan soler patient is stable at this time. Patient does have historyof CKD. Creatinine 1.81 which is around his baseline. Patient does have signs of anemia 10.1. This similar to his prior hemoglobin 9.9. Platelet is 34. Given patient risk factor obtain a CT abdomen pelvis to further assess source of his bleeding. The Protonix will be given to cover GI bleed. He has no history of hematemesis. I do not think there is a variceal bleed. I suspect this is likely a lower GI bleed. Continue to observe patient here on the ER. [TC] 0550 Patient has no further bloody bowel movement since he has been here in the ER. Patient CT imaging did not show any signs of active bleed. He does have signs of cirrhosis with moderate ascites. And liver mass. Patient also has signs of splenomegaly. Patient also has a nonocclusive thrombus. No sign of contrast blushing. These findings were discussed with the patient. Encouraged him to follow-up with Dr. Cohen his oncologist. Will plan to give him a referral for GI clinic for his lower GI bleed. Patient hemoglobin stable vital signs stable no sign of tachycardia or hypotension. Hemoglobin stable at 10.1. He has no further signs of lower GI bleed. Through shared decision making we will plan to dischargepatient at this time with outpatient follow-up. Patient is agreement with this plan. All questions were addressed. [TC] ED Course User Index [TC] Hui Brandt DO Clinical Impressions as of 05/06/24 0550 Gastrointestinal hemorrhage, unspecified gastrointestinal hemorrhage type Procedures Procedures Diagnosis 1. Gastrointestinal hemorrhage, unspecified gastrointestinal hemorrhage type CT Angio Abdomen Pelvis wo and/or w Contrast CT Angio Abdomen Pelvis wo and/or w Contrast Disposition Discharge ED Prescriptions None Physician Attestation Hui Brandt DO 05/06/24 0056 Hui Brandt DO 05/06/24 0208 Hiu Brandt DO 05/06/24 0550 documented in this encounter Plan of Treatment Upcoming Encounters Date Type Department Care Team (Late st Contact Info) Description 06/15/2024 1:50 PM EDT Office Visit Gastroenterology - [address] [place] [phone] Isiah Marcum MD [address] [address] 06/28/2024 10:30 AM EDT Office Visit [facility] Hematology Oncology [address] [place] [phone] Ignacio Cohen MD [address] [place] [address] 09/26/2024 9:00 AM EDT Office Visit [facility] Hematology Oncology [address] [place] [address] Ignacio Cohen MD [address] [place] [address] Scheduled Referrals Name Type Priority Associated Diagnoses Order Schedule Ambulatory referral to Gastroenterology Outpatient Referral Routine 1 Occurrences starting 05/06/2024 until 05/06/2025 documented as of this encounter Procedures Procedure Name Priority Date/Time Associated Diagnosis Comments ECG ANNOTATED 05/07/2024 CT ANGIO ABDOMEN PELVIS WO AND/OR W CONTRAST STAT 05/06/2024 3:42 AM EST Gastrointestinal hemorrhage, unspecified gastrointestinal hemorrhage type XR CHEST 2 VIEWS STAT 05/05/2024 6:08 PM EST URINALYSIS WITH REFLEX MICROSCOPIC AND CULTURE STAT 05/05/2024 5:56 PM EST PAULINO URINE CULTURE TUBE STAT 05/05/2024 5:56 PM EST URINALYSIS WITH REFLEX MICROSCOPIC AND CULTURE STAT 05/05/2024 5:56 PM EST CULTURE URINE STAT 05/05/2024 5:56 PM EST ECG 12-LEAD STAT 05/05/2024 5:47 PM EST CBC WITH AUTO DIFFERENTIAL STAT 05/05/2024 5:41 PM EST CBC AND DIFFERENTIAL STAT 05/05/2024 5:41 PM EST AMMONIA STAT 05/05/2024 5:41 PM EST COMPREHENSIVE METABOLIC PANEL STAT 05/05/2024 5:41 PM EST documented in this encounter Results * ECG-Annotated (05/07/2024) us Provider Onbase MD ECG ORDERABLES Final Result * CT Angio Abdomen Pelvis wo and/or w Contrast (05/06/2024 3:42 AM EST) Anatomical Region Laterality Modality Body Computed Tomogra phy 05/06/2024 5:03 AM EST Addenda Addendum by Xochitl Sylvester MD on 05/06/2024 5:26 AM EST ADDENDUM: Receipt of this report by the clinical staff was confirmed with [employer] on May 06, 2024 05:24:00 EST. This [...] Sylvester MD on 05/06/2024 05:03:24 us Hui Bradnt DO IMG CT PROCEDURES Edited Result - [...] Signed Date: 05/06/2024 08:26 ET Workstation ID: [id number] Transcribed By: Self Edit Transcribed Date: 05/06/2024 [...] Signed Date: 05/06/2024 08:26 ET Workstation ID: [id number] Transcribed By: Self Edit Transcribed Date: 05/06/2024 08:20 ET Hui Johnson Teodoroelvira Brandt DO IMG XR PROCEDURES Final R esult * Culture urine (05/05/2024 5:56 PM EST) Culture, Urine No growth 05/06/2024 1:[address] [facility] Urine Urine specimen obtained by clean catch procedure / Unknown Non-blood Collection / Unknown 05/05/2024 5:56 PM EST 05/05/2024 7:14 PM EST Enricoron Johnson Teodoro Brandt LAB MICROBIOLOGY - GENERA L ORDERABLES Final Result Performing Organization Address [facility]/ZIP Co de Phone Number [facility] [address] [place] [address], [place] [phone] * Paulino urine culture tube (05/05/2024 5:56 PM EST) Extra Tube Hold for add-ons. 05/05/2024 8:[address] [facility] Comment:Auto resulted. Urine Urine specimen obtained by clean catch procedure / Unknown Non-blood Collection / Unknown 05/05/2024 5:56 PM EST 05/05/2024 7:00 PM EST Hui Johnson Teodoroelvira Brandt LAB URINE ORDERABLES Jayleen l Result Performing Organization Address City/[facility]/ZIP Co de Phone Number [facility] [address] [place] [address], [place] [phone] * (ABNORMAL) Urinalysis with reflex microscopic and culture (05/05/2024 5:56 PM EST) Specific [place] Urine 1.016 1.003 - 1.030 LAB URINALYSIS [...] URINALYSIS - AUTOMATED METHOD 05/05/2024 7:[address] [facility] Bacteria, Urine Negative Negative /HPF LAB URINALYSIS - AUTOMATED METHOD 05/05/2024 7:[address] [facility] Hyaline Casts, Urine 0.4 0 - 3 /LPF LAB URINALYSIS - AUTOMATED METHOD 05/05/2024 7:[address] [facility] Urine Urine specimen obtained by clean catch procedure / Unknown Non-blood Collection / Unknown 05/05/2024 5:56 PM EST 05/05/2024 7:00 PM EST us [employer] Tutto Teodoro Brandt LAB URINE ORDERABLES Jayleen l Result Performing Organization Address [facility]/ZIP Co de Phone Number [facility] [address] [place] [address], [place] [phone] * ECG 12 lead (05/05/2024 5:47 PM EST) Ventricular Rate ECG 57 BPM GEMUSE Atrial Rate 57 BPM GEMUSE P-R Interval 116 ms GEMUSE QRS Duration 130 ms GEMUSE Q-T Interval 492 ms GEMUSE QTc 478 ms GEMUSE P Wave [place] 49 degrees GEMUSE R [place] -19 degrees GEMUSE T [place] 17 degrees GEMUSE ECG Interpretation Sinus bradycardia Right bundle branch block Abnormal ECG When compared with ECG of 18-JAN-2019 18:26, Right bundle branch block has replaced Incomplete right bundle branch block Confirmed by CARMENCITA DASH ([id number]) on 05/06/2024 7:13:42 AM GEMUSE 05/05/2024 5:47 PM EST 05/06/2024 7:13 AM EST us [employer] TeodoroIris Mobile DO ECG ORDERABLES Final Res ult Performing Organization Address City/[facility]/ZIP Co de Phone Number GEMUSE * (ABNORMAL) CBC auto differential (05/05/2024 5:41 PM EST) [facility] WBC 2.8(L) 4.8 - 10.8 K/mcL LAB HEMETOLOGY METHOD 05/05/2024 6:18 PM [facility] RBC 3.30(L) 4.50 - 5.50 M/mcL LAB HEMETOLOGY METHOD 05/05/2024 6:18 PM [facility] Hemoglobin 10.1(L) 13.5 - 17.5 g/dL LAB HEMETOLOGY METHOD 05/05/2024 6:18 PM [facility] Hematocrit 29.6(L) 42.0 - 54.0 % LAB HEMETOLOGY METHOD 05/05/2024 6:18 PM [facility] MCV 90.8 79.0 - 98.0 FL LAB HEMETOLOGY METHOD 05/05/2024 6:18 PM [facility] MCH 31.0 27.0 - 32.0 pcg LAB HEMETOLOGY METHOD 05/05/2024 6:18 PM [facility] MCHC 34.1 32.0 - 37.0 g/dL LAB HEMETOLOGY METHOD 05/05/2024 6:18 PM [facility] RDW 15.9(H) 11.0 - 15.0 % LAB HEMETOLOGY METHOD 05/05/2024 6:18 PM [facility] Platelets 34(L) 130 - 400 K/mcL LAB HEMETOLOGY METHOD 05/05/2024 6:18 PM [facility] Comment:previously verified by slide MPV 12.1(H) 7.0 - 11.0 FL LAB HEMETOLOGY METHOD 05/05/2024 6:18 PM [facility] NRBC 0.0 <1.0 % LAB HEMETOLOGY METHOD 05/05/2024 6:18 PM [facility] NRBC Absolute 0.00 <0.10 K/mcL LAB HEMETOLOGY METHOD 05/05/2024 6:18 PM [facility] Neutrophils Relative 52.6 % LAB HEMETOLOGY METHOD 05/05/2024 6:18 PM [facility] Lymphocytes Relative 30.6 % LAB HEMETOLOGY METHOD 05/05/2024 6:18 PM [facility] Monocytes Relative 13.9 % LAB HEMETOLOGY METHOD 05/05/2024 6:18 PM [facility] Eosinophils Relative 1.8 % LAB HEMETOLOGY METHOD 05/05/2024 6:18 PM [facility] Basophils Relative 0.4 % LAB HEMETOLOGY METHOD 05/05/2024 6:18 PM [facility] Immature Granulocytes Relative 0.7 % LAB HEMETOLOGY METHOD 05/05/2024 6:18 PM [facility] Neutrophils Absolute 1.48(L) 1.50 - 7.00 K/mcL LAB HEMETOLOGY METHOD 05/05/2024 6:18 PM [facility] Lymphocytes Absolute 0.86(L) 1.00 - 5.00 K/mcL LAB HEMETOLOGY METHOD 05/05/2024 6:18 PM [facility] Monocytes Absolute 0.39 0.20 - 1.00 K/mcL LAB HEMETOLOGY METHOD 05/05/2024 6:18 PM [facility] Eosinophils Absolute 0.05 0.00 - 0.50 K/mcL LAB HEMETOLOGY METHOD 05/05/2024 6:18 PM [facility] Basophils Absolute 0.01 0.00 - 0.20 K/mcL LAB HEMETOLOGY METHOD 05/05/2024 6:18 PM [facility] Immature Granulocytes Absolute 0.02 0.00 - 0.03 K/mcL LAB HEMETOLOGY METHOD 05/05/2024 6:18 PM [facility] Blood Venous blood specimen / Unknown Venipuncture / Unknown 05/05/2024 5:41 PM EST 05/05/2024 5:53 PM EST Hui Brandt LAB BLOOD ORDERABLES Jayleen l Result Performing Organization Address [facility]/ZIP Co de Phone Number [facility] [address] [place] [address], [place] [phone] * (ABNORMAL) Ammonia (05/05/2024 5:41 PM EST) Ammonia 100(H) 11 - 35 mcmol/L LAB CHEMISTRY METHOD 05/05/2024 7:[address] [facility] Comment:Results verified by repeat testing Blood Venous blood specimen / Unknown Venipuncture / Unknown 05/05/2024 5:41 PM EST 05/05/2024 5:53 PM EST [facility] LAB BLOOD ORDERABLES Jayleen l Result Performing Organization Address [facility]/ZIP Co de Phone Number [facility] [address] [place] [address], [place] [phone] * (ABNORMAL) Comprehensive metabolic panel (05/05/2024 5:41 PM EST) Sodium 136 133 - 145 mmol/L LAB CHEMISTRY METHOD 05/05/2024 7:08 PM [facility] Potassium 4.9 3.5 - 5.5 mmol/L LAB CHEMISTRY METHOD 05/05/2024 7:08 PM [facility] Chloride 108 96 - 110 mmol/L LAB CHEMISTRY METHOD 05/05/2024 7:08 PM [facility] CO2 24 21 - 32 mmol/L LAB CHEMISTRY METHOD 05/05/2024 7:08 PM [facility] Anion Gap 4 3 - 11 LAB CHEMISTRY METHOD 05/05/2024 7:08 PM [facility] Glucose 94 70 - 100 mg/dL LAB CHEMISTRY METHOD 05/05/2024 7:08 PM [facility] BUN 27(H) 5 - 25 mg/dL LAB CHEMISTRY METHOD 05/05/2024 7:08 PM [facility] Creatinine 1.81(H) 0.70 - 1.30 mg/dL LAB CHEMISTRY METHOD 05/05/2024 7:08 PM [facility] eGFR 40(L) >=60 mL/min/1. 73m2 LAB CHEMISTRY METHOD 05/05/2024 7:08 PM [facility] Comment:Calculation based on the??Chronic Kidney Disease Epidemiology Collaboration (CKD-EPI) equation refit??without adjustment for race. BUN/Creatinine Ratio 14.9 LAB CHEMISTRY METHOD 05/05/2024 7:08 PM [facility] Calcium 8.9 8.5 - 10.5 mg/dL LAB CHEMISTRY METHOD 05/05/2024 7:08 PM [facility] AST (SGOT) 57(H) 10 - 42 unit/L LAB CHEMISTRY METHOD 05/05/2024 7:08 PM [facility] ALT (SGPT) 61(H) 10 - 60 unit/L LAB CHEMISTRY METHOD 05/05/2024 7:08 PM [facility] Alkaline Phosphatase 217(H) 42 - 121 unit/L LAB CHEMISTRY METHOD 05/05/2024 7:08 PM [facility] Total Protein 6.9 6.0 - 8.0 g/dL LAB CHEMISTRY METHOD 05/05/2024 7:08 PM [facility] Albumin 3.2 3.2 - 5.0 g/dL LAB CHEMISTRY METHOD 05/05/2024 7:08 PM [facility] Total Bilirubin 1.9(H) 0.0 - 1.4 mg/dL LAB CHEMISTRY METHOD 05/05/2024 7:08 PM [facility] Blood Venous blood specimen / Unknown Venipuncture / Unknown 05/05/2024 5:41 PM EST 05/05/2024 5:53 PM EST us Hui Brandt DO LAB BLOOD ORDERABLES Jayleen keegan Result [facility] [address] [place] [address], documented in this encounter Visit Diagnoses Diagnosis Gastrointestinal hemorrhage, unspecified gastrointestinal hemorrhage type- Primary documented in this encounter Administered Medications Inactive Administered Medications - up to 3 most recent administrations Medication Order MAR Action Action Date Dose Rate Site iopamidoL (ISOVUE-370) 370 mg iodine /mL (76 %) injection 90 mL 90 mL, intravenous, Once in imaging, Starting on Thu05/06/24 at 0332, For 1 dose Given 05/06/2024 3:33 AM EST 90 mL pantoprazole (PROTONIX) injection 80 mg 80 mg, intravenous, Administer over 2 Minutes, Once, On Thu05/06/24 at 0057, For 1 dose, Pantroprazole - IV push: Reconstitute powder for injection with 10 mL NS; final concentration: 4 mg/mL., Indication for IV Push Pantoprazole? EGD evidence of PUD with stigmata or Upper G.I. Bleed Given 05/06/2024 1:26 AM EST 80 mg sodium chloride 0.9 % flush 10 mL 10 mL, intravenous, Once, On Thu05/06/24 at 0334, For 1 dose Given 05/06/2024 3:33 AM EST 10 mL documented in this encounter Active and Recently Administered Medications Times are shown in EST. Scheduled Medication Order 05/04/2024 05/05/2024 05/06/2024 iopamidoL (ISOVUE-370) 370 mg iodine /mL (76 %) injection 90 mL (COMPLETED) 90 mL, intravenous, Once in imaging, Starting on Thu05/06/24 at 0332, For 1 dose 0333 (Given - Provid er: Alayna Lambetr) pantoprazole (PROTONIX) injection 80 mg (COMPLETED) 80 mg, intravenous, Administer over 2 Minutes, Once, On Thu05/06/24 at 0057, For 1 dose, Pantroprazole - IV push: Reconstitute powder for injection with 10 mL NS; final concentration: 4 mg/mL., Indication for IV Push Pantoprazole? EGD evidence of PUD with stigmata or Upper G.I. Bleed 0126 (Given - Provid er: Janette Carpenter RN) sodium chloride 0.9 % flush 10 mL (COMPLETED) 10 mL, intravenous, Once, On Thu05/06/24 at 0334, For 1 dose 0333 (Given - Provid er: Alayna Lambert) documented in this encounter Care Teams Wrapper Leaf Inspector Relationship Specialty Start Date End Date Suzan Briscoe MD PCP - General Internal Medicine 04/11/24 documented as of this encounter
--- OUTSIDE RECORDS SUMMARY | 2024-05-25 09:37 | XMS_ITS | Clinical Summary ---
Author Organization [facility] Address [address] [place] [address] Care Team Providers Care Instrumentation Technician Name Role Phone Unavailable Primary Care Provider [...] Plan of Treatment Not on file Insurance [place] MEDICA[place] DENTAL [facility] SAFETY NET DENTAL
== END 2024-05-25 09:09 | disposition home or self-care (01) ==
LOC: HO.HKAS 08:45
PROVIDERS: PCP Internal Medicine; Visit Provider Internal Medicine Hypertension Specialist
DX: N18.4 Chronic kidney disease, stage 4 (severe) (principal)
CPT/HCPCS: 99214

== ENCOUNTER 2024-05-25 08:44 | Outpatient (REF) | payer MEDICARE, MEDICAID, SELFPAY ==
[2024-05-25 18:24] LABS: Appearance Urine Clear; Color Urine Yellow; Glucose Urine UA Negative (Negative); Leukocyte Esterase Urine Negative (Negative); Nitrite Urine Negative (Negative); Specific Gravity - Urine 1.015 (1.005-1.025); Urine Blood Negative (Negative); Urine Ketones Negative (Negative); Urine Protein Negative (Neg-Trace)
[2024-05-25 18:33] LABS: Hematocrit 30.1 % (42.0-52.0); Hemoglobin 10.1 g/dl (14.0-18.0); Mean Corpuscular HGB Conc 33.6 g/dl (31.0-36.0); PLT CLUMP 1
[2024-05-25 18:35] LABS: Mean Corpuscular Hemoglobin 31.2 pg (27.0-33.0); Mean Corpuscular Volume 92.9 fL (80.0-98.0); Mean Platelet Volume 10.9 fL (9.4-12.4); Red Blood Count 3.24 X10*6/uL (4.60-5.80); Red Cell Distribution Width 16.2 % (11.0-16.0)
[2024-05-25 18:37] LABS: White Blood Count 2.7 X10*3/uL (4.8-10.8)
[2024-05-25 18:47] LABS: Alanine Aminotransferase 48 U/L (0-40); Albumin Level 3.4 g/dL (3.5-5.0); Alkaline Phosphatase 169 U/L (39-117); Anion Gap 10 (12-20); Aspartate Amino Transferase 55 U/L (5-37); Bilirubin Total 1.7 mg/dL (0.0-1.0); Blood Urea Nitrogen 27 mg/dL (9-16); Calcium 8.7 mg/dL (8.4-10.2); Carbon Dioxide 20 mmol/L (22-29); Chloride 115 mmol/L (96-108); Estimated Glomerular Filt Rate 36; Glucose Random 104 mg/dL (60-115); Potassium 4.9 mmol/L (3.3-5.1); Sodium 140 mmol/L (135-145); Total Protein 7.1 g/dL (6.5-8.0)
[2024-05-25 18:48] LABS: Platelet Count 35 X10*3/uL (160-400)
[2024-05-25 19:03] LABS: Creatinine Urine 89.77 mg/dL; Total Protein Urine Random < 7 mg/dL (<12)
== END 2024-05-25 08:45 | disposition home or self-care (01) ==
LOC: HO.HKASLDS 08:44
PROVIDERS: PCP Internal Medicine; Visit Provider Internal Medicine Hypertension Specialist
DX: N18.4 Chronic kidney disease, stage 4 (severe) (principal)
CPT/HCPCS: 36415; 80053; 81003; 82570; 84156; 85027; 99212

== ENCOUNTER 2024-06-09 10:06 | Outpatient (REF) | payer MEDICARE, MEDICAID, SELFPAY ==
--- NOTE | ~2024-06-09 | US_ITS ---
EXAMINATION: US KIDNEY BILATERAL HISTORY: I10 - Essential (primary) hypertension TECHNIQUE: Real-time grayscale ultrasound imaging of the kidneys was performed and images were reviewed. COMPARISON: Correlation is made with an unenhanced CT of the abdomen dated 04/11/2020. FINDINGS: Right kidney: The right kidney measures 10.5 x 4.8 x 4.7 cm. Renal parenchymal echotexture and thickness are normal. There are multiple cysts, the largest of which is at the upper pole measuring 3.0 x 1.7 x 2.9 cm. There is a probable nonobstructing calculus at the upper pole measuring up to 5 mm in size. There is no hydronephrosis. Left Kidney: The left kidney measures 11.9 x 4.6 x 4.6 cm. Renal parenchymal echotexture and thickness are normal. Multiple cysts are noted, the largest of which is at the upper pole measuring 5.7 x 5.2 x 5.8 cm. There is no hydronephrosis or renal calculi. Incidental note is made of a small amount of abdominal ascites. US/US renal BI IMPRESSION: Bilateral renal cysts as described. Probable 5 mm nonobstructing right renal calculus. Electronically signed by: Eric Eli MD 06/09/2024 10:40 AM EDT
--- OUTSIDE RECORDS SUMMARY | 2024-06-09 10:56 | XMS_ITS | Clinical Summary ---
Author Organization [facility] Address [address] [place] [address] Phone Care Team Providers Care Pantry Goods Worker Name Role Phone Suzan Briscoe MD Primary Care Provider [phone] Allergies Active Allergy Reactions Criticality Noted Date Comments Acetaminophen 10/29/2022 Codeine 02/05/2022 Other Reaction(s): cirrhosis Other reaction(s): cirrhosis Ibuprofen 10/29/2022 Medications amLODIPine (NORVASC) 10 mg tablet Take 1 tablet (10 mg total) by mouth 1 (one) time each day. 07/06/2018 Active metoprolol succinate 50 mg capsule,sprinkle ,ER [...] Xifaxan 550 mg tabletIndication s:Rectal bleeding,Hepatoc ellular carcinoma,Alcoho lic cirrhosis, unspecified whether ascites present (CMS/HCC) Take 1 tablet (550 mg total) by mouth 2 (two) times a day. 180 tablet 1 05/09/2024 Active spironolactone (ALDACTONE) 50 mg tabletIndication s:Rectal bleeding,Hepatoc ellular carcinoma,Alcoho lic cirrhosis, unspecified whether ascites present (CMS/HCC) Take 1 tablet (50 mg total) by mouth 1 (one) time each day. 90 each 3 05/09/2024 05/10/19 26 Active Active Problems Problem Noted Date Diagnosed Date Cancer, hepatocellular 10/01/2022 Encounters Date Type Department Care Team Description 05/17/2024 11:15 AM EDT Office Visit [facility] Hematology Oncology [address] [place] [phone] Ignacio Cohen MD Cancer, hepatocellular (CMS/HCC) (Primary Dx); Iron deficiency anemia due to chronic blood loss 05/09/2024 8:40 AM EST Office Visit Gastroenterology - [address] [place] [phone] Darline Luu NP Rectal bleeding (Primary Dx); Hepatocellular carcinoma (CMS/HCC); Alcoholic cirrhosis, unspecified whether ascites present (CMS/HCC) 05/06/2024 12:34 AM EST - 05/06/2024 6:09 AM EST Emergency [facility] Emergency [address] [place] [phone] Hui Brandt DO Gastrointestinal hemorrhage, unspecified gastrointestinal hemorrhage type (Primary Dx) Discharge Disposition: Home or Self Care 05/06/2024 Telephone [facility] Hematology Oncology [address] [place] [phone] Ignacio Cohen MD Sooner FOV 04/26/2024 12:15 PM EST - 04/26/2024 11:59 PM EST Hospital Encounter [facility] Ultrasound [address] [place] [phone] Cirrhosis of liver with ascites, unspecified hepatic cirrhosis type (CMS/HCC); Hepatocellular carcinoma (CMS/HCC) Discharge Disposition: Home or Self Care 04/14/2024 8:40 AM EST Office Visit Gastroenterology - [address] [phone] Darline Luu NP Cirrhosis of liver with ascites, unspecified hepatic cirrhosis type (CMS/HCC) (Primary Dx); Hepatocellular carcinoma (CMS/HCC) 04/14/2024 Telephone Gastroenterology - [address] [facility] [address] [place] [phone] Julia Velasco MA 03/29/2024 1:15 PM EST Office Visit [facility] Hematology Oncology [address] [place] [phone] Ignacio Cohen MD Cancer, hepatocellular (CMS/HCC) (Primary [...] Office Visit Gastroenterology - [address] [phone] Isiah Marcum MD [address] [facility] Stevan [address] [place] [phone] 06/28/2024 10:30 AM EDT Office Visit [facility] Hematology Oncology [address] [place] [phone] Ignacio Cohen MD [address] [place] [phone] 09/26/2024 9:00 AM EDT Office Visit [facility] Hematology Oncology [address] [place] [phone] Ignacio Cohen MD [address] [place] [phone] Health Maintenance Due Date Last Done Comments Diabetes: Annual Foot Exam 1966 Diabetes: Annual Retina Eye Exam 1966 DTaP,Tdap,and Td Vaccines (1 - Tdap) 11/12/1975 Hepatitis A Vaccines (1 of 2 - Risk 2-dose series) 11/12/1975 Zoster Vaccines (1 of 2) 11/12/1975 RSV Immunization Adult Patients (1 - Risk 60-74 years 1-dose series) [...] K antigen type (05/17/2024 12:16 PM EDT) K Antigen Negative 05/19/2024 2:16 PM EDT [facility] Blood Venous blood specimen / Unknown Venipuncture / Unknown 05/17/2024 12:16 PM EDT 05/17/2024 1:33 PM EDT us Ignacio Cohen MD LAB BLOOD BANK TEST ORDERAB LES Final Result [facility] [address] [place] [address], [place] [phone] * E antigen type (05/17/2024 12:16 PM EDT) E Antigen Negative 05/19/2024 2:15 PM EDT [facility] Blood Venous blood specimen / Unknown Venipuncture / Unknown 05/17/2024 12:16 PM EDT 05/17/2024 1:33 PM EDT us Ignacio Cohen MD LAB BLOOD BANK TEST ORDERAB LES Final Result [facility] [address] [place] [address], [place] [phone] * C antigen type (05/17/2024 12:16 PM EDT) Pathologist [facility] C Antigen Positive 05/19/2024 2:14 PM EDT [facility] Blood Venous blood specimen / Unknown Venipuncture / Unknown 05/17/2024 12:16 PM EDT 05/17/2024 1:33 PM EDT Ignacio Cohen MD LAB BLOOD BANK TEST ORDERAB LES Final Result Performing Organization Address [facility]/ZIP Co de Phone Number [facility] [address] [place] [address], [place] [phone] * (ABNORMAL) CBC auto differential (05/17/2024 12:16 PM EDT) Only the most recent of3 resultswithin the time period is included. [facility] WBC 2.6(L) 4.8 - 10.8 K/mcL LAB HEMETOLOGY METHOD 05/17/2024 1:53 PM EDT [facility] RBC 3.30(L) 4.50 - 5.50 M/mcL LAB HEMETOLOGY METHOD 05/17/2024 1:53 PM EDT [facility] Hemoglobin 10.3(L) 13.5 - 17.5 g/dL LAB HEMETOLOGY METHOD 05/17/2024 1:53 PM EDT [facility] Hematocrit 30.8(L) 42.0 - 54.0 % LAB HEMETOLOGY METHOD 05/17/2024 1:53 PM EDT [facility] MCV 93.9 79.0 - 98.0 FL LAB HEMETOLOGY METHOD 05/17/2024 1:53 PM EDT [facility] MCH 31.4 27.0 - 32.0 pcg LAB HEMETOLOGY METHOD 05/17/2024 1:53 PM EDT [facility] MCHC 33.4 32.0 - 37.0 g/dL LAB HEMETOLOGY METHOD 05/17/2024 1:[address] [facility] RDW 15.7(H) 11.0 - 15.0 % LAB HEMETOLOGY METHOD 05/17/2024 1:[address] [facility] Platelets 39(L) 130 - 400 K/mcL LAB HEMETOLOGY METHOD 05/17/2024 1:53 PM T [facility] Comment:previously verified by slide MPV 12.5(H) 7.0 - 11.0 FL LAB HEMETOLOGY METHOD 05/17/2024 1:[address] [facility] NRBC 0.0 <1.0 % LAB HEMETOLOGY METHOD 05/17/2024 1:[address] [facility] NRBC Absolute 0.00 <0.10 K/mcL LAB HEMETOLOGY METHOD 05/17/2024 1:[address] [facility] Neutrophils Relative 58.4 % LAB HEMETOLOGY METHOD 05/17/2024 1:[address] [facility] Lymphocytes Relative 24.8 % LAB HEMETOLOGY METHOD 05/17/2024 1:[address] [facility] Monocytes Relative 14.0 % LAB HEMETOLOGY METHOD 05/17/2024 1:[address] [facility] Eosinophils Relative 1.2 % LAB HEMETOLOGY METHOD 05/17/2024 1:[address] [facility] Basophils Relative 0.4 % LAB HEMETOLOGY METHOD 05/17/2024 1:[address] [facility] Immature Granulocytes Relative 1.2 % LAB HEMETOLOGY METHOD 05/17/2024 1:[address] [facility] Neutrophils Absolute 1.51 1.50 - 7.00 K/mcL LAB HEMETOLOGY METHOD 05/17/2024 1:53 PM EDT [facility] Lymphocytes Absolute 0.64(L) 1.00 - 5.00 K/mcL LAB HEMETOLOGY METHOD 05/17/2024 1:53 PM EDT [facility] Monocytes Absolute 0.36 0.20 - 1.00 K/[facility] LAB HEMETOLOGY METHOD 05/17/2024 1:53 PM EDT [facility] Eosinophils Absolute 0.03 0.00 - 0.50 K/[facility] LAB HEMETOLOGY METHOD 05/17/2024 1:53 PM EDT [facility] Basophils Absolute 0.01 0.00 - 0.20 K/[facility] LAB HEMETOLOGY METHOD 05/17/2024 1:53 PM EDT [facility] Immature Granulocytes Absolute 0.03 0.00 - 0.03 K/[facility] LAB HEMETOLOGY METHOD 05/17/2024 1:53 PM EDT [facility] Blood Venous blood specimen / Unknown Venipuncture / Unknown 05/17/2024 12:16 PM EDT 05/17/2024 1:33 PM EDT us Ignacio Cohen MD LAB BLOOD ORDERABLES Final Result [facility] [address] [place] [address], * Type and screen (05/17/2024 12:16 PM EDT) ABO Group O 05/17/2024 2:21 PM EDT [facility] Rh Type Positive 05/17/2024 2:21 PM EDT [facility] Antibody Screen Negative 05/17/2024 2:21 PM EDT [facility] Blood Venous blood specimen / Unknown Venipuncture / Unknown 05/17/2024 12:16 PM EDT 05/17/2024 1:33 PM EDT us Ignacio Cohen MD LAB BLOOD BANK TEST ORDERAB LES Final Result [facility] [address] [place] [address], [place] [phone] * (ABNORMAL) Comprehensive metabolic panel (05/17/2024 12:16 PM EDT) Only the most recent of3 resultswithin the time period is included. Sodium 142 133 - 145 mmol/L LAB CHEMISTRY METHOD 05/17/2024 2:56 PM EDT [facility] Potassium 5.1 3.5 - 5.5 mmol/L LAB CHEMISTRY METHOD 05/17/2024 2:56 PM EDT [facility] Chloride 112(H) 96 - 110 mmol/L LAB CHEMISTRY METHOD 05/17/2024 2:56 PM EDT [facility] CO2 23 21 - 32 mmol/L LAB CHEMISTRY METHOD 05/17/2024 2:56 PM EDT [facility] Anion Gap 7 3 - 11 LAB CHEMISTRY METHOD 05/17/2024 2:56 PM EDT [facility] Glucose 104(H) 70 - 100 mg/dL LAB CHEMISTRY METHOD 05/17/2024 2:56 PM EDT [facility] BUN 25 5 - 25 mg/dL LAB CHEMISTRY METHOD 05/17/2024 2:56 PM EDT [facility] Creatinine 2.13(H) 0.70 - 1.30 mg/dL LAB CHEMISTRY METHOD 05/17/2024 2:56 PM EDT [facility] eGFR 33(L) >=60 mL/min/1. 73m2 LAB CHEMISTRY METHOD 05/17/2024 2:56 PM EDT [facility] Comment:Calculation based on the??Chronic Kidney Disease Epidemiology Collaboration (CKD-EPI) equation refit??without adjustment for race. BUN/Creatinine Ratio 11.7 LAB CHEMISTRY METHOD 05/17/2024 2:56 PM EDT [facility] Calcium 9.2 8.5 - 10.5 mg/dL LAB CHEMISTRY METHOD 05/17/2024 2:56 PM EDT [facility] AST (SGOT) 39 10 - 42 unit/L LAB CHEMISTRY METHOD 05/17/2024 2:56 PM EDT [facility] ALT (SGPT) 45 10 - 60 unit/L LAB CHEMISTRY METHOD 05/17/2024 2:56 PM EDT [facility] Alkaline Phosphatase 208(H) 42 - 121 unit/L LAB CHEMISTRY METHOD 05/17/2024 2:56 PM EDT [facility] Total Protein 7.1 6.0 - 8.0 g/dL LAB CHEMISTRY METHOD 05/17/2024 2:56 PM EDT [facility] Albumin 3.3 3.2 - 5.0 g/dL LAB CHEMISTRY METHOD 05/17/2024 2:56 PM T [facility] Total Bilirubin 1.7(H) 0.0 - 1.4 mg/dL LAB CHEMISTRY METHOD 05/17/2024 2:56 PM EDT [facility] Blood Venous blood specimen / Unknown Venipuncture / Unknown 05/17/2024 12:16 PM EDT 05/17/2024 1:34 PM EDT us Ignacio Cohen MD LAB BLOOD ORDERABLES Final Result [facility] [address] [place] [address], * ECG-Annotated (05/07/2024) us Provider Onbase ECG ORDERABLES Final Result * CT Angio Abdomen Pelvis wo and/or w Contrast (05/06/2024 3:42 AM EST) Anatomical Region Laterality Modality Body Computed Tomogra phy 05/06/2024 5:03 AM EST Addenda Addendum by Xochitl Sylvester MD on 05/06/2024 5:26 AM EST ADDENDUM: Receipt of this report by the clinical staff was confirmed with [employer] on May 06, 2024 05:24:00 EST. This [...] by: Xochitl Sylvester MD on 05/06/2024 05:03:24 Hui Brandt DO IMG CT PROCEDURES Edited [...] Signed Date: 05/06/2024 08:26 ET Workstation ID: [id number] Transcribed By: Self Edit Transcribed Date: 05/06/2024 [...] Signed Date: 05/06/2024 08:26 ET Workstation ID: [id number] Transcribed By: Self Edit Transcribed Date: 05/06/2024 08:20 ET us Hui Alex Valerio Rikki DO IMG XR PROCEDURES Final R esult * (ABNORMAL) Urinalysis with reflex microscopic and culture (05/05/2024 5:56 PM EST) Specific [place] Urine 1.016 1.003 - 1.030 LAB URINALYSIS - AUTOMATED METHOD 05/05/2024 7:14 PM [facility] pH, Urine 7.0 5.0 - 8.0 pH LAB URINALYSIS - AUTOMATED METHOD 05/05/2024 7:14 PM [facility] Leukocytes, Urine Trace(A) Negative LAB URINALYSIS - AUTOMATED METHOD 05/05/2024 7:14 PM [facility] Nitrite, Urine Negative Negative LAB URINALYSIS - AUTOMATED METHOD 05/05/2024 7:14 PM [facility] Protein, Urine Negative <=Trace mg/dL LAB URINALYSIS - AUTOMATED METHOD 05/05/2024 7:14 PM [facility] Glucose, Urine Negative Negative mg/dL LAB URINALYSIS - AUTOMATED METHOD 05/05/2024 7:14 PM [facility] Ketones, Urine Negative Negative mg/dL LAB URINALYSIS - AUTOMATED METHOD 05/05/2024 7:14 PM [facility] Urobilinogen, Urine 1.0 0.2 - 1.0 mg/dL LAB URINALYSIS - AUTOMATED METHOD 05/05/2024 7:14 PM [facility] Bilirubin, Urine Negative Negative LAB URINALYSIS - AUTOMATED METHOD 05/05/2024 7:14 PM [facility] Blood, Urine Negative Negative LAB URINALYSIS - AUTOMATED METHOD 05/05/2024 7:14 PM [facility] RBC, Urine 2.8 0 - 4 /HPF LAB URINALYSIS - AUTOMATED METHOD 05/05/2024 7:14 PM [facility] WBC, Urine 0.3 0 - 4 /HPF LAB URINALYSIS - AUTOMATED METHOD 05/05/2024 7:14 PM [facility] Squamous Epithelial, Urine 3 0 - 60 /LPF LAB URINALYSIS - AUTOMATED METHOD 05/05/2024 7:14 PM [facility] Bacteria, Urine Negative Negative /HPF LAB URINALYSIS - AUTOMATED METHOD 05/05/2024 7:14 PM [facility] Hyaline Casts, Urine 0.4 0 - 3 /LPF LAB URINALYSIS - AUTOMATED METHOD 05/05/2024 7:14 PM [facility] Urine Urine specimen obtained by clean catch procedure / Unknown Non-blood Collection / Unknown 05/05/2024 5:56 PM EST 05/05/2024 7:00 PM EST Hui Brandt LAB URINE ORDERABLES Jayleen l Result Performing Organization Address City/[facility]/ZIP Co de Phone Number [facility] [address] [place] [address], [place] [phone] * Paulino urine culture tube (05/05/2024 5:56 PM EST) Extra Tube Hold for add-ons. 05/05/2024 8:02 PM EST [facility] Comment:Auto resulted. Urine Urine specimen obtained by clean catch procedure / Unknown Non-blood Collection / Unknown 05/05/2024 5:56 PM EST 05/05/2024 7:00 PM EST [facility] Alex Valerio Brandt LAB URINE ORDERABLES Jayleen l Result [facility] [address] [place] [address], [place] [phone] * Culture urine (05/05/2024 5:56 PM EST) Culture, Urine No growth 05/06/2024 1:29 PM [facility] Urine Urine specimen obtained by clean catch procedure / Unknown Non-blood Collection / Unknown 05/05/2024 5:56 PM EST 05/05/2024 7:14 PM EST us Hui Johnson Teodoro Brandt DO LAB MICROBIOLOGY - GENERA L ORDERABLES Final Result Performing Organization Address City/[facility]/ZIP Co de Phone Number [facility] [address] [place] [address], [place] [phone] * ECG 12 lead (05/05/2024 5:47 PM EST) Ventricular Rate ECG 57 BPM GEMUSE Atrial Rate 57 BPM GEMUSE P-R Interval 116 ms GEMUSE QRS Duration 130 ms GEMUSE Q-T Interval 492 ms GEMUSE QTc 478 ms GEMUSE P Wave [place] 49 degrees GEMUSE R [place] -19 degrees GEMUSE T [place] 17 degrees GEMUSE ECG Interpretation Sinus bradycardia Right bundle branch block Abnormal ECG When compared with ECG of 18-JAN-2019 18:26, Right bundle branch block has replaced Incomplete right bundle branch block Confirmed by CARMENCITA DASH ([id number]) on 05/06/2024 7:13:42 AM GEMUSE 05/05/2024 5:47 PM EST 05/06/2024 7:13 AM EST Enricoron Johnson Teodoro Brandt DO ECG ORDERABLES Final Res ult Performing Organization Address [facility] Co de Phone Number GEMUSE * (ABNORMAL) Ammonia (05/05/2024 5:41 PM EST) Ammonia 100(H) 11 - 35 mcmol/L LAB CHEMISTRY METHOD 05/05/2024 7:05 PM EST [facility] Comment:Results verified by repeat testing Blood Venous blood specimen / Unknown Venipuncture / Unknown 05/05/2024 5:41 PM EST 05/05/2024 5:53 PM EST us [place] Alex Teodoro Brandt DO LAB BLOOD ORDERABLES Jayleen l Result Performing Organization Address City/[facility]/ZIP Co de Phone Number [facility] [address] [place] [address], [place] [phone] * [place] Paracentesis w Image Guidance (04/26/2024 [...] Signed Date: 04/26/2024 15:31 ET Workstation ID: [id number] Transcribed By: Self Edit Transcribed Date: 04/26/2024 14:02 ET Resident/PA/PAINT MIXER MACHINE: Mellissa Martins Narrative 04/26/2024 3:31 PM EST [...] Signed Date: 04/26/2024 15:31 ET Workstation ID: [id number] Transcribed By: Self Edit Transcribed Date: 04/26/2024 14:02 ET Resident/PA/PAINT MIXER MACHINE: Mellissa Martins us Darline Luu NP IMG US PROCEDURES Final Resul t * Alpha fetoprotein tumor marker (04/14/2024 8:33 AM EST) AFP 3.2 0.0 - 8.0 ng/mL LAB CHEMISTRY METHOD 04/14/2024 9:45 AM EST [facility] Blood Venous blood specimen / Unknown Venipuncture / Unknown 04/14/2024 8:33 AM EST 04/14/2024 8:57 AM EST Narrative [facility] - 04/14/2024 9:45 AM EST The Siemens Advia Centaur Chemiluminescent Immunoassay is used. Results obtained with different assay methods or kits cannot be used interchangeably. Results cannot be interpreted as absolute evidence of the presence or absence of malignant disease. us Darline Luu NP LAB BLOOD ORDERABLES Final Re sult [facility] [address] [place] [address], [place] [phone] * (ABNORMAL) Prothrombin time with INR (04/14/2024 8:33 AM EST) Protime 16.4(H) 10.6 - 13.9 sec LAB COAGULATION METHOD 04/14/2024 9:34 AM EST [facility] INR 1.3 LAB COAGULATION METHOD 04/14/2024 9:34 AM EST [facility] Blood Venous blood specimen / Unknown Venipuncture / Unknown 04/14/2024 8:33 AM EST 04/14/2024 8:57 AM EST us Darline Luu PAINT MIXER MACHINE LAB BLOOD ORDERABLES Final Re sult [facility] [address] [place] [address], [place] [phone] * HISTORICAL IMAGING SCAN RESULT (03/29/2024) Anatomical Region Laterality Modality Ultrasound Provider Onbase MD IMG US PROCEDURES Final Resul t * Miscellaneous reference lab test (03/29/2024) Provider Onbase MD LAB BLOOD ORDERABLES Final Re sult * Hemoglobin A1c (12/24/2016) Hemoglobin A1C 5.4 % Blood Venous blood specimen / Unknown Historical Provider MD LAB BLOOD ORDERABLES Jayleen l Result from Last 3 Months or Most Recently Relevant to Health Maintenance Insurance MEDICARE MEDICAID - [place] Care Teams Pantry Goods Worker Relationship Specialty Start Date End Date Suzan Briscoe MD PCP - General Internal Medicine 04/11/24
--- OUTSIDE RECORDS SUMMARY | 2024-06-09 10:56 | XMS_ITS | Clinical Summary ---
Author Organization [facility] Address [address] [place] [address] Care Team Providers Care Equine Pharmacology Technician Name Role Phone Unavailable Primary Care [...] Plan of Treatment Not on file Insurance [place] MED[place] DENTAL [facility] SAFETY NET DENTAL
--- OUTSIDE RECORDS SUMMARY | 2024-06-09 10:56 | XMS_ITS | Clinical Summary ---
Author Organization [facility] Address [address] [place] [address] Care Team Providers Care Divine Healer Name Role Phone Suzan Briscoe MD Primary Care Provider [phone] Allergies Active Allergy Reactions Criticality Noted Date [...] age to complete this topic Care Teams Divine Healer Relationship Specialty Start Date End Date Suzan Briscoe MD [address] [facility] [phone] PCP - General Breaker Tender 09/11/22
--- OUTSIDE RECORDS SUMMARY | 2024-06-09 10:56 | XMS_ITS | Clinical Summary ---
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 [address] [facility] [address] [place] [address] Vee Reynolds ARNP Stage 3a [...] [place]ID [place]IC[place] Care Teams Criminal Court Judge Relationship Specialty Start Date End Date Suzan Briscoe MD [facility] [place] [address] PCP - General 03/19/20
== END 2024-06-09 10:07 | disposition home or self-care (01) ==
LOC: HO.US 10:06
PROVIDERS: PCP Internal Medicine; Visit Provider Internal Medicine Hypertension Specialist
DX: I12.9 Hypertensive chronic kidney disease with stage 1 through stage 4 chronic kidney disease, or unspecified chronic kidney disease (principal); N18.4 Chronic kidney disease, stage 4 (severe)
CPT/HCPCS: 76775

== ENCOUNTER → 2024-06-09 10:10 | Outpatient (BNV) | payer MEDICARE, MEDICAID, SELFPAY | PROVIDERS: PCP Internal Medicine; Visit Provider Radiology Diagnostic Radiology | DX: N28.1 Cyst of kidney, acquired (principal) | CPT/HCPCS: 76775 ==

== ENCOUNTER 2024-07-13 08:32 | Outpatient (AMB) | payer MEDICARE, MEDICAID, SELFPAY ==
[2024-07-13 08:39] VITALS: BP 108/56; PULSE 63; O2SAT 99; BMI 28.1
--- NOTE | 2024-07-13 08:39 | HO.NEPHOV ---
Vital Signs 07/13/24 08:39 Height 5 ft 9 in Weight 190 lb BMI 28.1 BP 108/56 L Blood Pressure Location Lt brachial Position Sitting Pulse 63 Pulse Source Pulse Oximeter Pulse Oximetry (%) 99 Oxygen Delivery Method Room Air Intake Visit Reasons: 5-6wk follow up/ Conf Laboratory Sample Carrier Required: No Accompanied by: Spouse Allergies acetaminophen [Tylenol] Allergy (Severe, Verified 07/13/24 08:41) Rash and Hives losartan Allergy (Severe, Verified 07/13/24 08:41) Rash and Hives Motrin Allergy (Severe, Uncoded 10/20/23 11:08) Rash and Hives HPI Comments Details: [age] year old man with a history of chronic alcohol use and cirrhosis of the liver. He was chronic kidney disease with a serum creatinine 1.6 back in 2022. He has history of diabetes mellitus. He was previously seen by me in my previous practice and subsequently transferred his care to with the new practice. He was recently seen by Gastroenterology and started on spironolactone 50 mg. He was feeling dizzy therefore he has stopped spironolactone. He was not taking spironolactone for the last week or so. History of hepatocellular carcinoma status post radiofrequency ablation, follows with Oncology [facility] Medical History Hyperglycemia Annual physical exam Annual physical exam Asthma-COPD overlap syndrome [id number] syndrome Chronic kidney disease, stage 4 (severe) Hypertension Foot fracture, right Ribs, multiple fractures Chronic depression PVD (peripheral vascular disease) Iron deficiency anemia Hyperlipidemia Polyp, colonic Liver cirrhosis CVA (cerebral vascular accident) Surgical History History of surgery on wrist History of esophagogastroduodenoscopy (EGD) H/O colonoscopy Family History Father Diabetes mellitus Mother Diabetes mellitus Social History Household Members: Other Household Members Other:: friend Housing: Apartment Alcohol intake: never Patient Tobacco Use Status: Former Tobacco user Tobacco use type: Cigarette e-Cigarette/Vaping Use: Never Used service: No Current occupational status: disabled Cognitive needs: No Hearing needs: No Vision needs: Yes Physical Exam Vital Signs: Last Vital Signs Pulse 63 07/13/24 08:39 BP 108/56 L 07/13/24 08:39 Pulse Ox 99 07/13/24 08:39 Oxygen Delivery Method Room Air 07/13/24 08:39 BMI result Body Mass Index 28.1 Const General: comfortable; No acute distress Orientation/consciousness: patient oriented x3 Eyes General: appearance normal, both eyes and all related structures Visual Mendoza: normal visual mendoza by confrontation Neck Neck: Yes supple and Yes no JVD Resp Effort & Inspection: normal respiratory effort and respiratory effort not decreased Cardio Palpation: no palpable S3 and no palpable S4 Heart sounds: no rubs GI Inspection: Yes normal to inspection Palpation (GI): Soft to palpation Percussion: Yes normal to percussion Auscultation: normal bowel sounds General: Yes no CVA tenderness Back/Spine/Pelvis Back: no CVA tenderness Skin General skin exam: no petechiae and no purpura Neuro General: patient oriented x3 and no focal motor deficits Extrem General: No clubbing and No edema Results Reviewed Nephrology Results: Hgb 10.1 g/dl (14.0-18.0) L 05/25/24 WBC 2.7 X10*3/uL (4.8-10.8) L 05/25/24 Plt Count 35 X10*3/uL (160-400) L 05/25/24 Sodium 140 mmol/L (135-145) 05/25/24 Potassium 4.9 mmol/L (3.3-5.1) 05/25/24 Chloride 115 mmol/L (96-108) H 05/25/24 Carbon Dioxide 20 mmol/L (22-29) L 05/25/24 BUN 27 mg/dL (9-16) H 05/25/24 Creatinine 1.87 mg/dL (0.5-1.4) H 05/25/24 Calcium 8.7 mg/dL (8.4-10.2) 05/25/24 Urine Protein Negative mg/dL (Neg-Trace) 05/25/24 Urine Creatinine 89.77 mg/dL 05/25/24 Renal US 06/09/24 Assessment & Plan Assessment & Plan (1) Chronic kidney disease, stage 4 (severe): Code(s): N18.4 - Chronic kidney disease, stage 4 (severe) Category: Medical Plan Chronic kidney disease in the setting of cirrhosis and hepatocellular carcinoma. He history of today to reestablish care. Ordered renal panel today. Obtain follow up renal ultrasonogram. Currently blood pressure is acceptable. He is unable to tolerate spironolactone 50 mg. And he does not want to take this anymore. Therefore I will hold off on spironolactone and add Lasix 20 mg p.o. daily. Encouraged to stay on low-sodium diet. He returned to the office once the basic workup is completed and I will track down his old records as well. He returned to the office in the next 1 month Coding Level of Care Code Est Pt Level 4 (42860) Diagnoses Chronic kidney disease, stage 4 (severe) N18.4
--- NOTE | 2024-07-13 08:46 | HO.NEPHOV ---
Vital Signs 07/13/24 08:39 Height 5 ft 9 in Weight 190 lb BMI 28.1 BP 108/56 L Blood Pressure Location Lt brachial Position Sitting Pulse 63 Pulse Source Pulse Oximeter Pulse Oximetry (%) 99 Oxygen Delivery Method Room Air Intake Visit Reasons: 5-6wk follow up/ Conf Allergies acetaminophen [Tylenol] Allergy (Severe, Verified 07/13/24 08:41) Rash and Hives losartan Allergy (Severe, Verified 07/13/24 08:41) Rash and Hives Motrin Allergy (Severe, Uncoded 10/20/23 11:08) Rash and Hives Medication List - Last Reconciled 07/13/24 by Andrew Spangler MD allopurinol 300 mg PO DAILY amlodipine 5 mg PO DAILY aspirin (Adult Aspirin Regimen) 81 mg PO DAILY atorvastatin 20 mg PO DAILY cane As directed citalopram 40 mg PO DAILY furosemide (Lasix) 20 mg PO DAILY meclizine 25 mg PO BID PRN metoprolol tartrate 50 mg (1/2 x 100 mg) PO BID omeprazole 20 mg PO DAILY rifaximin 550 mg PO BID HPI Comments Details: Pleasant middle aged man with a history of chronic alcohol use and cirrhosis of the liver. He was chronic kidney disease with a serum creatinine 1.6 back in 2022. He has history of diabetes mellitus. He was previously seen by me in my previous practice and subsequently transferred his care to with the new practice. He was recently seen by Gastroenterology and started on spironolactone 50 mg. He was feeling dizzy therefore he has stopped spironolactone. He was not taking spironolactone for the last week or so. History of hepatocellular carcinoma status post radiofrequency ablation, follows with Oncology Here for follow up;Had and episode of epistaxis [facility] Medical History Hyperglycemia Annual physical exam Annual physical exam Asthma-COPD overlap syndrome [id number] syndrome Chronic kidney disease, stage 4 (severe) Hypertension Foot fracture, right Ribs, multiple fractures Chronic depression PVD (peripheral vascular disease) Iron deficiency anemia Hyperlipidemia Polyp, colonic Liver cirrhosis CVA (cerebral vascular accident) Surgical History History of surgery on wrist History of esophagogastroduodenoscopy (EGD) H/O colonoscopy Family History Father Diabetes mellitus Mother Diabetes mellitus Social History Household Members: Other Household Members Other:: friend Housing: Apartment Alcohol intake: never Patient Tobacco Use Status: Former Tobacco user Tobacco use type: Cigarette e-Cigarette/Vaping Use: Never Used service: No Current occupational status: disabled Cognitive needs: No Hearing needs: No Vision needs: Yes Physical Exam Vital Signs: Last Vital Signs Pulse 63 07/13/24 08:39 BP 108/56 L 07/13/24 08:39 Pulse Ox 99 07/13/24 08:39 Oxygen Delivery Method Room Air 07/13/24 08:39 BMI result Body Mass Index 28.1 Results Reviewed Results Reviewed: 06/09/24 Right kidney: The right kidney measures 10.5 x 4.8 x 4.7 cm. Renal parenchymal echotexture and thickness are normal. There are multiple cysts, the largest of which is at the upper pole measuring 3.0 x 1.7 x 2.9 cm. There is a probable nonobstructing calculus at the upper pole measuring up to 5 mm in size. There is no hydronephrosis. Left Kidney: The left kidney measures 11.9 x 4.6 x 4.6 cm. Renal parenchymal echotexture and thickness are normal. Multiple cysts are noted, the largest of which is at the upper pole measuring 5.7 x 5.2 x 5.8 cm. There is no hydronephrosis or renal calculi. Nephrology Results: Hgb 10.1 g/dl (14.0-18.0) L 05/25/24 WBC 2.7 X10*3/uL (4.8-10.8) L 05/25/24 Plt Count 35 X10*3/uL (160-400) L 05/25/24 Sodium 140 mmol/L (135-145) 05/25/24 Potassium 4.9 mmol/L (3.3-5.1) 05/25/24 Chloride 115 mmol/L (96-108) H 05/25/24 Carbon Dioxide 20 mmol/L (22-29) L 05/25/24 BUN 27 mg/dL (9-16) H 05/25/24 Creatinine 1.87 mg/dL (0.5-1.4) H 05/25/24 Calcium 8.7 mg/dL (8.4-10.2) 05/25/24 Urine Protein Negative mg/dL (Neg-Trace) 05/25/24 Urine Creatinine 89.77 mg/dL 05/25/24 Renal US 06/09/24 Assessment & Plan Assessment & Plan (1) CKD (chronic kidney disease) stage 3, GFR 30-59 ml/min: Code(s): N18.30 - Chronic kidney disease, stage 3 unspecified Category: Medical (2) Hepatocellular carcinoma: Comment: Getting radiofrequency ablation at [facility] 01/2024 Code(s): C22.0 - Liver cell carcinoma Category: Medical Plan Chronic kidney disease in the setting of cirrhosis and hepatocellular carcinoma. Renal function is at baseline Cr is aroudn 1.8 renal ultrasonogram. - shows bilateral cyst 5 mm non obstruction steon in right kidney No hydrao Blood pressure is acceptable. He is unable to tolerate spironolactone 50 mg. And he does not want to take this anymore. Therefore I will hold off on spironolactone and Keep Lasix 20 mg p.o. daily. Encouraged to stay on low-sodium diet. Hepatocellular CA- follow with GI Orders: Orders Basic Metabolic Panel 3 Months N18.30 - Chronic kidney disease, stage 3 unspecified Complete Blood Count no Diff 3 Months N18.30 - Chronic kidney disease, stage 3 unspecified Medications: Refilled furosemide (Lasix) 20 mg PO DAILY 90 tabs 1RF Coding Level of Care Code Est Pt Level 4 (56939) Diagnoses CKD (chronic kidney disease) stage 3, GFR 30-59 ml/min N18.30 Hepatocellular carcinoma C22.0
--- OUTSIDE RECORDS SUMMARY | 2024-07-13 08:46 | XMS_ITS | Clinical Summary ---
Author Organization [facility] Address [address] [place] [address] Phone Care Team Providers Care Assistant Basketball Coach Name Role Phone Suzan Briscoe MD Primary Care Provider [phone] Allergies Active Allergy Reactions Criticality Noted Date [...] cirrhosis 04/30/2018 Biliary cirrhosis 04/30/2018 Atherosclerosis of modoc ar teries of extremities with intermittent claudication, [...] Orders Only [facility] [address] [facility] [place] [address] Vee Reynolds ARNP Stage 3a chronic kidney disease (HCC); Hypertension; Anemia in chronic kidney disease; Secondary hyperparathyroidism of renal origin (HCC) from Last 3 Months Immunizations Immunization Administration Dates Next Due Influenza TIV (IM) [...] 3-dose series) 2016 07/20/2007, 06/17/2007 Pneumococcal Vaccine: 50+ Ye ars (2 of 2 - PCV) 10/13/2020 10/14/2019 Influenza Vaccine (Season Ended) 2024 01/07/20 18, 12/12/2005 Pneumococcal Vaccine: Peds ( 0 to 5 Years) and At-Risk Patients (6 to 49 Years) Discontinued 10/14/2019 Insurance Medicare Medicaid [place] Medicare Medicaid [place] Care Teams Assistant Basketball Coach Relationship Specialty Start Date End Date Suzan Briscoe MD [address] [place] [id number] PCP - General 03/19/20
--- OUTSIDE RECORDS SUMMARY | 2024-07-13 08:46 | XMS_ITS | Clinical Summary ---
Author Organization [employer] [facility] Address [address] [place] [address] Care Team Providers Care Oil Field Laborer Name Role Phone Suzan Briscoe MD Primary Care Provider [phone] Allergies Active Allergy Reactions Criticality Noted Date [...] age to complete this topic Care Teams Oil Field Laborer Relationship Specialty Start Date End Date Suzan Briscoe MD [address] [facility] [place] [phone] PCP - General Lift Manager 09/11/22
--- OUTSIDE RECORDS SUMMARY | 2024-07-13 08:47 | XMS_ITS | Clinical Summary ---
Author Organization [facility] Address [address] [place] [address] Care Team Providers Care Watermaster Name Role Phone Unavailable Primary Care Provider [...] Plan of Treatment Not on file Insurance [place] MEDICA[place] DENTAL [facility] SAFETY NET DENTAL
--- OUTSIDE RECORDS SUMMARY | 2024-07-13 08:47 | XMS_ITS | Clinical Summary ---
Author Organization [facility] Address [address] [place] [address] Phone Care Team Providers Care Textile Scrap Salvager Name Role Phone Suzan Briscoe MD Primary Care Provider [phone] Allergies Active Allergy Reactions Criticality Noted Date [...] 550 mg tabletIndication s:Rectal bleeding,Hepatoc ellular carcinoma (CMS/HCC V24, CMS/HCC V28),Alcoholic cirrhosis, unspecified whether ascites present (CMS/HCC V24, CMS/HCC V28) Take 1 tablet (550 mg total) by mouth 2 (two) times a day. 180 tablet 1 05/09/2024 Active spironolactone (ALDACTONE) 50 mg tabletIndication s:Rectal bleeding,Hepatoc ellular carcinoma (CMS/HCC V24, CMS/HCC V28),Alcoholic cirrhosis, unspecified whether ascites present (CMS/HCC V24, CMS/HCC V28) Take 1 tablet (50 mg total) by mouth 1 (one) time each day. 90 each 3 05/09/2024 05/10/19 26 Active Active Problems Problem Noted Date Diagnosed Date Cancer, hepatocellular (CMS/HCC V24, CMS/HCC V28 ) 10/01/2022 Encounters Date Type Department Care Team Description 06/28/2024 10:30 AM EDT Office Visit [facility] Hematology Oncology [address] [place] [phone] Ignacio Cohen MD Iron deficiency anemia due to chronic blood loss (Primary Dx) 05/17/2024 11:15 AM EDT Office Visit [facility] Hematology Oncology [address] [place] [phone] Ignacio Cohen MD Cancer, hepatocellular (CMS/HCC V24, CMS/HCC V28) (Primary Dx); Iron deficiency anemia due to chronic blood loss 05/09/2024 8:40 AM EST Office Visit Gastroenterology - [address] [phone] Darline Luu, FRANK Rectal bleeding (Primary Dx); Hepatocellular carcinoma (CMS/HCC V24, CMS/HCC V28); Alcoholic cirrhosis, unspecified whether ascites present (CMS/HCC V24, CMS/HCC V28) 05/06/2024 12:34 AM EST - 05/06/2024 6:09 AM EST Emergency [facility] Emergency [address] [place] [phone] Hui Brandt DO Gastrointestinal hemorrhage, unspecified gastrointestinal hemorrhage type (Primary Dx) Discharge Disposition: Home or Self Care 05/06/2024 Telephone [facility] Hematology Oncology [address] [place] [phone] Ignacio Cohen MD Sooner FOV 04/26/2024 12:15 PM EST - 04/26/2024 11:59 PM EST Hospital Encounter [facility] Ultrasound [address] [place] [phone] Cirrhosis of liver with ascites, unspecified hepatic cirrhosis type ([facility]/HCC V24, [facility]/HCC V28); Hepatocellular carcinoma ([facility]/HCC V24, [facility]/HCC V28) Discharge Disposition: Home or Self Care from Last 3 Months Surgical History Surgery Date Site/Laterality Comments PARACENTESIS Medical History Medical History Date Comments Cirrhosis ([facility]/HCC V24, [facility]/HCC V28) Liver cancer ([facility]/HCC V24, [facility]/HCC V28) Social History Tobacco Use Types Packs/Day Years [...] Sign Reading Time Taken Comments Blood Pressure 117/73 06/28/2024 10:26 AM EDT Pulse 57 06/28/2024 10:26 AM EDT Temperature 36.7 ??C (98 ??F) 06/28/2024 10:26 AM EDT Respiratory Rate 20 05/06/2024 1:15 AM EST Oxygen Saturation 100% 06/28/2024 10:26 AM EDT Inhaled Oxygen Concentration - - Weight 87.1 kg (192 lb) 06/28/2024 10:26 AM EDT Height 175.3 cm (5' 9 ) 05/09/2024 8:38 AM EST Body Mass Index 28.35 05/09/2024 8:38 AM EST Plan of Treatment Upcoming Encounters Date Type Department Care Team (Late st Contact Info) Description 07/27/2024 1:00 PM EDT Office Visit Gastroenterology - 299 [facility] 299 [facility] [address] [place] [phone] Darline Luu, FRANK [address] [address] 11/28/2024 9:15 AM EDT Office Visit [facility] Hematology Oncology [address] [place] [phone] Ignacio Cohen MD [address] [place] [phone] Health Maintenance Due Date Last [...] season) 2023 11/29/2020, 10/30/2020, 10/09/2020 Influenza Vaccine (Season Ended) 2024 01/01/2021, 12/22/2018, 01/06/2018, Additional history exists Diabetes: Annual [...] age to complete this topic Meningococcal B Vaccine Aged Out No l onger eligible based on patient's age to complete this topic RSV Immunization Patients Under 20 months Aged Out No longer eligible based on patient's age to complete this topic Varicella Vaccines Aged Out No longer eligible based on patient's age to complete this topic Procedures Procedure Name Priority Date/Time Associated Diagnosis Comments PATHOLOGIST REVIEW BLOOD SMEAR Routine 06/28/2024 10:51 AM EDT Iron deficiency anemia due to chronic blood loss CBC WITH AUTO DIFFERENTIAL Routine 06/28/2024 10:51 AM EDT Iron deficiency anemia due to chronic blood loss IRON AND TIBC Routine 06/28/2024 10:51 AM EDT Iron deficiency anemia due to chronic blood loss FERRITIN Routine 06/28/2024 10:51 AM EDT Iron deficiency anemia due to chronic blood loss CBC AND DIFFERENTIAL Routine 06/28/2024 10:51 AM EDT Iron deficiency anemia due to chronic blood loss K ANTIGEN TYPE Routine 05/17/2024 12:16 PM EDT Iron deficiency anemia due to chronic blood loss E ANTIGEN TYPE Routine 05/17/2024 12:16 PM EDT Iron deficiency anemia due to chronic blood loss C ANTIGEN TYPE Routine 05/17/2024 12:16 PM EDT Iron deficiency anemia due to chronic blood loss CBC WITH AUTO DIFFERENTIAL Routine 05/17/2024 12:16 PM EDT Cancer, hepatocellular (CMS/HCC V24, CMS/HCC V28) TYPE AND SCREEN Routine 05/17/2024 12:16 PM EDT Iron deficiency anemia due to chronic blood loss COMPREHENSIVE METABOLIC PANEL Routine 05/17/2024 12:16 PM EDT Cancer, hepatocellular (CMS/HCC V24, CMS/HCC V28) CBC AND DIFFERENTIAL Routine 05/17/2024 12:16 PM EDT Cancer, hepatocellular (CMS/HCC V24, CMS/HCC V28) ECG ANNOTATED 05/07/2024 CT ANGIO ABDOMEN PELVIS [...] liver with ascites, unspecified hepatic cirrhosis type (CMS/HCC V24, CMS/HCC V28) Hepatocellular carcinoma (CMS/HCC V24, CMS/HCC V28) HEMOGLOBIN A1C Routine 12/24/2016 from Last 3 Months or Most Recently Relevant to Health Maintenance Results * Pathology review, blood smear (06/28/2024 10:51 AM EDT) Pathologist Review Blood Smear Pancytopenia, including normocytic anemia, thrombocytopeni a, absolute neutropenia and absolute lymphopenia: smear not diagnostic of etiology. Thrombocytopeni a is confirmed (no platelet clumps identified). Occasional hypogranular neutrophils are noted. 06/28/2024 4:53 PM EDT [facility] Blood Venous blood specimen / Unknown Venipuncture / Unknown 06/28/2024 10:51 AM EDT 06/28/2024 11:40 AM EDT us Ignacio Cohen MD LAB BLOOD ORDERABLES Final Result [facility] [address] [place] [address], * (ABNORMAL) CBC auto differential (06/28/2024 10:51 AM EDT) Only the most recent of3 resultswithin the time period is included. WBC 2.7(L) 4.8 - 10.8 K/mcL LAB HEMETOLOGY METHOD 06/28/2024 1:31 PM EDT [facility] RBC 3.50(L) 4.50 - 5.50 M/mcL LAB HEMETOLOGY METHOD 06/28/2024 1:31 PM EDT [facility] Hemoglobin 10.9(L) 13.5 - 17.5 g/dL LAB HEMETOLOGY METHOD 06/28/2024 1:31 PM EDT [facility] Hematocrit 32.3(L) 42.0 - 54.0 % LAB HEMETOLOGY METHOD 06/28/2024 1:31 PM EDT [facility] MCV 92.6 79.0 - 98.0 FL LAB HEMETOLOGY METHOD [facility]/28[facility]24 [facility] MCH 31.2 27.0 - 32.0 pcg LAB HEMETOLOGY METHOD 06/28/2024 1:[facility] MCHC 33.7 32.0 - 37.0 g/dL LAB HEMETOLOGY METHOD 06/28/2024 1:31 [facility] RDW 15.9(H) 11.0 - 15.0 % LAB HEMETOLOGY METHOD 06/28/2024 1:31 [facility] Platelets 36(L) 130 - 400 K/mcL LAB HEMETOLOGY METHOD 06/28/2024 1:31 PM [facility] Comment:previously verified by slide MPV 12.5(H) 7.0 - 11.0 FL LAB HEMETOLOGY METHOD 06/28/2024 1:31 [facility] NRBC 0.0 <1.0 % LAB HEMETOLOGY METHOD 06/28/2024 1:31 PM [facility] NRBC Absolute 0.00 <0.10 K/mcL LAB HEMETOLOGY METHOD 06/28/2024 1:31 PM [facility] Neutrophils Relative 52.8 % LAB HEMETOLOGY METHOD 06/28/2024 1:31 PM [facility] Lymphocytes Relative 28.1 % LAB HEMETOLOGY METHOD 06/28/2024 1:31 [facility] Monocytes Relative 16.1 % LAB HEMETOLOGY METHOD 06/28/2024 1:31 PM [facility] Eosinophils Relative 1.5 % LAB HEMETOLOGY METHOD 06/28/2024 1:31 PM [facility] Basophils Relative 0.4 % LAB HEMETOLOGY METHOD 06/28/2024 1:31 PM EDT [facility] Immature Granulocytes Relative 1.1 % LAB HEMETOLOGY METHOD 06/28/2024 1:31 PM EDT [facility] Neutrophils Absolute 1.45(L) 1.50 - 7.00 K/mcL LAB HEMETOLOGY METHOD 06/28/2024 1:31 PM EDT [facility] Lymphocytes Absolute 0.77(L) 1.00 - 5.00 K/mcL LAB HEMETOLOGY METHOD 06/28/2024 1:31 PM EDT [facility] Monocytes Absolute 0.44 0.20 - 1.00 K/mcL LAB HEMETOLOGY METHOD 06/28/2024 1:31 PM EDT [facility] Eosinophils Absolute 0.04 0.00 - 0.50 K/mcL LAB HEMETOLOGY METHOD 06/28/2024 1:31 PM EDT [facility] Basophils Absolute 0.01 0.00 - 0.20 K/mcL LAB HEMETOLOGY METHOD 06/28/2024 1:31 PM EDT [facility] Immature Granulocytes Absolute 0.03 0.00 - 0.03 K/mcL LAB HEMETOLOGY METHOD 06/28/2024 1:31 PM EDT [facility] Blood Venous blood specimen / Unknown Venipuncture / Unknown 06/28/2024 10:51 AM EDT 06/28/2024 11:40 AM EDT us Ignacio Cohen MD LAB BLOOD ORDERABLES Edited Result - Final [facility] [address] [place] [address], * (ABNORMAL) Iron and TIBC (06/28/2024 10:51 AM EDT) [facility] Iron 98 50 - 160 mcg/dL LAB CHEMISTRY METHOD 06/28/2024 2:00 PM EDT [facility] TIBC 245(L) 250 - 450 mcg/dL LAB CHEMISTRY METHOD 06/28/2024 2:00 PM EDT [facility] Iron Saturation 40 20 - 50 % LAB CHEMISTRY METHOD 06/28/2024 2:00 PM EDT [facility] Blood Venous blood specimen / Unknown Venipuncture / Unknown 06/28/2024 10:51 AM EDT 06/28/2024 11:39 AM EDT us Ignacio Cohen MD LAB BLOOD ORDERABLES Final Result Performing Organization Address [facility]/ZIP Co de Phone Number [facility] [address] [place] [address], [place] [phone] * Ferritin (06/28/2024 10:51 AM EDT) Ferritin 141 26 - 388 ng/mL LAB CHEMISTRY METHOD 06/28/2024 2:00 PM EDT [facility] Blood Venous blood specimen / Unknown Venipuncture / Unknown 06/28/2024 10:51 AM EDT 06/28/2024 11:39 AM EDT us Ignacio Cohen MD LAB BLOOD ORDERABLES Final Result Performing Organization Address City/[facility]/ZIP Co de Phone Number [facility] [address] [place] [address], [place] [phone] * K antigen type (05/17/2024 12:16 PM EDT) K Antigen Negative 05/19/2024 2:16 PM EDT [facility] Blood Venous blood specimen / Unknown Venipuncture / Unknown 05/17/2024 12:16 PM EDT 05/17/2024 1:33 PM EDT us Ignacio Cohen MD LAB BLOOD BANK TEST ORDERAB LES Final Result Performing Organization Address City/[facility]/ZIP Co de Phone Number [facility] [address] [place] [address], [place] [phone] * E antigen type (05/17/2024 12:16 PM EDT) E Antigen Negative 05/19/2024 2:15 PM EDT [facility] Blood Venous blood specimen / Unknown Venipuncture / Unknown 05/17/2024 12:16 PM EDT 05/17/2024 1:33 PM EDT Ignacio Cohen MD LAB BLOOD BANK TEST ORDERAB LES Final Result Performing Organization Address City/[facility]/ZIP Co de Phone Number [facility] [address] [place] [address], [place] [phone] * C antigen type (05/17/2024 12:16 PM EDT) C Antigen Positive 05/19/2024 2:14 PM EDT [facility] Blood Venous blood specimen / Unknown Venipuncture / Unknown 05/17/2024 12:16 PM EDT 05/17/2024 1:33 PM EDT Ignacio Cohen MD LAB BLOOD BANK TEST ORDERAB LES Final Result Performing Organization Address City/[facility]/ZIP Co de Phone Number [facility] [address] [place] [address], [place] [phone] * Type and screen (05/17/2024 12:16 PM [...] Final Result [facility] [address] [place] [address], * (ABNORMAL) Comprehensive metabolic panel (05/17/2024 12:16 PM EDT) Only the most recent of2 resultswithin the time period is included. Sodium 142 133 - 145 mmol/L LAB CHEMISTRY METHOD 05/17/2024 2:56 PM [facility] Potassium 5.1 3.5 - 5.5 mmol/L LAB CHEMISTRY METHOD 05/17/2024 2:56 PM EDT [facility] Chloride 112(H) 96 - 110 mmol/L LAB CHEMISTRY METHOD 05/17/2024 2:56 PM [facility] CO2 23 21 - 32 mmol/L LAB CHEMISTRY METHOD 05/17/2024 2:56 PM EDT [facility] Anion Gap 7 3 - 11 LAB CHEMISTRY METHOD 05/17/2024 2:56 PM T [facility] Glucose 104(H) 70 - 100 mg/dL LAB CHEMISTRY METHOD 05/17/2024 2:56 PM EDT [facility] BUN 25 5 - 25 mg/dL LAB CHEMISTRY METHOD 05/17/2024 2:56 PM T [facility] Creatinine 2.13(H) 0.70 [...] unit/L LAB CHEMISTRY METHOD 05/17/2024 2:56 PM [facility] ALT (SGPT) 45 10 - 60 unit/L LAB CHEMISTRY METHOD 05/17/2024 2:56 PM [facility] Alkaline Phosphatase 208(H) 42 - 121 unit/L LAB CHEMISTRY METHOD 05/17/2024 2:56 PM [facility] Total Protein 7.1 6.0 - 8.0 g/dL LAB CHEMISTRY METHOD 05/17/2024 2:56 PM T [facility] Albumin 3.3 3.2 - 5.0 g/dL LAB CHEMISTRY METHOD 05/17/2024 2:56 PM [facility] Total Bilirubin 1.7(H) 0.0 - 1.4 mg/dL LAB CHEMISTRY METHOD 05/17/2024 2:56 PM [facility] Blood Venous blood specimen / Unknown Venipuncture / Unknown 05/17/2024 12:16 PM EDT 05/17/2024 1:34 PM EDT us Ignacio Cohen MD LAB BLOOD ORDERABLES Final Result [facility] [address] [place] [address], * ECG-Annotated (05/07/2024) us Provider Onbase ECG ORDERABLES Final Result * CT Angio Abdomen Pelvis wo and/or w Contrast (05/06/2024 3:42 AM EST) Anatomical Region Laterality Modality Body Computed Tomogra phy 05/06/2024 5:03 AM EST Addenda Addendum by Xochitl Sylvester MD on 05/06/2024 5:26 AM EST ADDENDUM: Receipt of this report by the clinical staff was confirmed with [facility] on May 06, 2024 05:24:00 EST. This [...] Signed Date: 05/06/2024 08:26 ET Workstation ID: [id number] Transcribed By: Self Edit Transcribed Date: 05/06/2024 [...] Signed Date: 05/06/2024 08:26 ET Workstation ID: [id number] Transcribed By: Self Edit Transcribed Date: 05/06/2024 08:20 ET Hui Brandt DO IMG XR PROCEDURES Final R esult * (ABNORMAL) Urinalysis with reflex microscopic and culture (05/05/2024 5:56 PM EST) Specific [place] Urine 1.016 1.003 - 1.030 LAB URINALYSIS - AUTOMATED METHOD 05/05/2024 7:14 PM [facility] pH, Urine 7.0 5.0 - 8.0 pH LAB URINALYSIS - AUTOMATED METHOD 05/05/2024 7:14 PM [facility] Leukocytes, Urine Trace(A) Negative LAB URINALYSIS - AUTOMATED METHOD 05/05/2024 7:14 PM [facility] Nitrite, Urine Negative Negative LAB URINALYSIS - AUTOMATED METHOD 05/05/2024 7:14 PM [facility] Protein, Urine Negative <=Trace mg/dL LAB URINALYSIS - AUTOMATED METHOD 05/05/2024 7:14 PM [facility] Glucose, Urine Negative Negative mg/dL LAB URINALYSIS - AUTOMATED METHOD 05/05/2024 7:14 PM [facility] Ketones, Urine Negative Negative mg/dL LAB URINALYSIS - AUTOMATED METHOD 05/05/2024 7:14 PM [facility] Urobilinogen, Urine 1.0 0.2 - 1.0 mg/dL LAB URINALYSIS - AUTOMATED METHOD 05/05/2024 7:14 PM [facility] Bilirubin, Urine Negative Negative LAB URINALYSIS - AUTOMATED METHOD 05/05/2024 7:14 PM [facility] Blood, Urine Negative Negative LAB URINALYSIS - AUTOMATED METHOD 05/05/2024 7:14 PM [facility] RBC, Urine 2.8 0 - 4 /HPF LAB URINALYSIS - AUTOMATED METHOD 05/05/2024 7:14 PM [facility] WBC, Urine 0.3 0 - 4 /HPF LAB URINALYSIS - AUTOMATED METHOD 05/05/2024 7:14 PM [facility] Squamous Epithelial, Urine 3 0 - 60 /LPF LAB URINALYSIS - AUTOMATED METHOD 05/05/2024 7:14 PM [facility] Bacteria, Urine Negative Negative /HPF LAB URINALYSIS - AUTOMATED METHOD 05/05/2024 7:14 PM [facility] Hyaline Casts, Urine 0.4 0 - 3 /LPF LAB URINALYSIS - AUTOMATED METHOD 05/05/2024 7:14 PM [facility] Urine Urine specimen obtained by clean catch procedure / Unknown Non-blood Collection / Unknown 05/05/2024 5:56 PM EST 05/05/2024 7:00 PM EST Milaron Valerio Brandt LAB URINE ORDERABLES Jayleen l Result Performing Organization Address City/[facility]/ZIP Co de Phone Number [facility] [address] [place] [address], [place] [phone] * Paulino urine culture tube (05/05/2024 5:56 PM EST) Extra Tube Hold for add-ons. 05/05/2024 8:02 PM [facility] Comment:Auto resulted. Urine Urine specimen obtained by clean catch procedure / Unknown Non-blood Collection / Unknown 05/05/2024 5:56 PM EST 05/05/2024 7:00 PM EST [employer] Teodoro Brandt LAB URINE ORDERABLES Jayleen l Result [facility] [address] [place] [address], [place] [phone] * Culture urine (05/05/2024 5:56 PM EST) Culture, Urine No growth 05/06/2024 1:29 PM [facility] Urine Urine specimen obtained by clean catch procedure / Unknown Non-blood Collection / Unknown 05/05/2024 5:56 PM EST 05/05/2024 7:14 PM EST us Hui Johnson Teodoroelvira Brandt DO LAB MICROBIOLOGY - GENERA L ORDERABLES Final Result Performing Organization Address [facility]/ZIP Co de Phone Number [facility] [address] [place] [address], [place] [phone] * ECG 12 lead (05/05/2024 5:47 PM EST) Ventricular Rate ECG 57 BPM GEMUSE Atrial Rate 57 BPM GEMUSE P-R Interval 116 ms GEMUSE QRS Duration 130 ms GEMUSE Q-T Interval 492 ms GEMUSE QTc 478 ms GEMUSE P [place] 49 degrees GEMUSE R [place] -19 degrees GEMUSE T [place] 17 degrees GEMUSE ECG Interpretation Sinus bradycardia Right bundle branch block Abnormal ECG When compared with ECG of 18-JAN-2019 18:26, Right bundle branch block has replaced Incomplete right bundle branch block Confirmed by CARMENCITA DASH ([id number]) on 05/06/2024 7:13:42 AM GEMUSE 05/05/2024 5:47 PM EST 05/06/2024 7:13 AM EST us Hui Brandt DO ECG ORDERABLES Final Res ult Performing Organization Address [facility]/ZIP Co de Phone Number GEMUSE * (ABNORMAL) Ammonia (05/05/2024 5:41 PM EST) Pathologist [facility] Ammonia 100(H) 11 - 35 mcmol/L LAB CHEMISTRY METHOD 05/05/2024 7:05 PM EST [facility] Comment:Results verified by repeat testing Blood Venous blood specimen / Unknown Venipuncture / Unknown 05/05/2024 5:41 PM EST 05/05/2024 5:53 PM EST Enricoron Johnson Teodoro Rikki ISLAS LAB BLOOD ORDERABLES Jayleen l Result [facility] [address] [place] [address], * [place] Paracentesis w Image Guidance (04/26/2024 [...] Signed Date: 04/26/2024 15:31 ET Workstation ID: [id number] Transcribed By: Self Edit Transcribed Date: 04/26/2024 14:02 ET Resident/PA/SHIP BOAT OR BARGE MATE: Mellissa Martins Narrative 04/26/2024 3:31 PM EST [...] Signed Date: 04/26/2024 15:31 ET Workstation ID: [id number] Transcribed By: Self Edit Transcribed Date: 04/26/2024 14:02 ET Resident/PA/SHIP BOAT OR BARGE MATE: Mellissa Martins Darline Luu SHIP BOAT OR BARGE MATE IMG US PROCEDURES Final Resul t * Hemoglobin A1c (12/24/2016) Hemoglobin A1C 5.4 % Blood Venous blood specimen / Unknown us Historical Provider LAB BLOOD ORDERABLES Jayleen l Result from Last 3 Months or Most Recently Relevant to Health Maintenance Insurance MEDICARE MEDICAID - [place] Care Teams Textile Scrap Salvager Relationship Specialty Start Date End Date Suzan Briscoe MD [address] [place] [phone] PCP - General Internal Medicine 04/11/24
== END 2024-07-13 08:58 | disposition home or self-care (01) ==
LOC: HO.HKAS 08:32
PROVIDERS: PCP Internal Medicine; Visit Provider Internal Medicine Hypertension Specialist
DX: N18.30 Chronic kidney disease, stage 3 unspecified (principal); C22.0 Liver cell carcinoma
CPT/HCPCS: 99214

== ENCOUNTER → 2024-07-13 08:32 | Outpatient (BNVA) | payer MEDICARE, MEDICAID, SELFPAY | PROVIDERS: PCP Internal Medicine; Visit Provider Internal Medicine Hypertension Specialist | DX: N18.30 Chronic kidney disease, stage 3 unspecified (principal); C22.0 Liver cell carcinoma | CPT/HCPCS: 99212 ==

== ENCOUNTER 2024-08-22 13:30 | Outpatient (REF) | payer MEDICARE, MEDICAID, SELFPAY ==
[2024-08-22 16:16] LABS: MANUAL DIFF FLAG NO
[2024-08-22 16:35] LABS: INTERNATIONAL NORM RATIO 1.5 (0.9-1.1); Prothrombin Time 16.8 SEC (10.9-12.4)
[2024-08-22 16:36] LABS: Basophils Percent Auto 0.6 % (0-2); Eosinophils Percent Auto 1.2 % (0-4); Hematocrit 26.4 % (42.0-52.0); Hemoglobin 9.4 g/dl (14.0-18.0); Imm Gran Abs Auto 0.06 X10*3/uL (0.00-0.03); Imm Gran Pct Auto 1.9 % (0.0-0.4); Lymphocytes Absolute Auto 0.5 X10*3/uL (1.2-4.9); Lymphocytes Percent Auto 16.4 % (20-40); Mean Corpuscular HGB Conc 35.6 g/dl (31.0-36.0); Mean Corpuscular Hemoglobin 32.4 pg (27.0-33.0); Mean Platelet Volume 9.9 fL (9.4-12.4); Monocytes Absolute Auto 0.5 X10*3/uL (0.1-1.2); Monocytes Percent Auto 15.4 % (2-11); Neutrophils Absolute Auto 2.1 x10*3/uL (2.0-8.3); Neutrophils Percent Auto 64.5 % (45-73); Red Cell Distribution Width 16.4 % (11.0-16.0); White Blood Count 3.2 X10*3/uL (4.8-10.8)
[2024-08-22 16:38] LABS: Partial Thromboplastin Time 32.8 SEC (26.0-36.8)
[2024-08-22 16:50] LABS: Platelet Count 32 X10*3/uL (160-400)
[2024-08-22 16:51] LABS: Alanine Aminotransferase 42 U/L (0-40); Albumin Level 3.4 g/dL (3.5-5.0); Alkaline Phosphatase 204 U/L (39-117); Anion Gap 12 (12-20); Aspartate Amino Transferase 60 U/L (5-37); Bilirubin Total 2.6 mg/dL (0.0-1.0); Blood Urea Nitrogen 39 mg/dL (9-16); Carbon Dioxide 24 mmol/L (22-29); Chloride 107 mmol/L (96-108); Estimated Glomerular Filt Rate 33; Glucose Random 98 mg/dL (60-115); Potassium 4.7 mmol/L (3.3-5.1); Sodium 138 mmol/L (135-145); Total Protein 6.7 g/dL (6.5-8.0)
== END 2024-08-22 13:31 | disposition home or self-care (01) ==
LOC: HO.HMGCLDS 13:30
PROVIDERS: PCP Internal Medicine; Visit Provider Internal Medicine
DX: Z01.818 Encounter for other preprocedural examination (principal); D61.818 Other pancytopenia; N18.30 Chronic kidney disease, stage 3 unspecified; K74.60 Unspecified cirrhosis of liver; H43.10 Vitreous hemorrhage, unspecified eye
CPT/HCPCS: 36415; 80053; 85025; 85610; 85730; 96127; 99212

== ENCOUNTER 2024-08-22 13:30 | Outpatient (AMB) | payer MEDICARE, MEDICAID, SELFPAY ==
--- NOTE | 2024-08-22 13:58 | MHC.PC.OV ---
Vital Signs 08/22/24 14:00 Height 5 ft 9 in Weight 183 lb BMI 27.0 BP 118/76 Blood Pressure Location Rt brachial Position Sitting Respiration 18 Pulse 57 Pulse Source Pulse Oximeter Temp 98.6 F Temp Source Oral Pulse Oximetry (%) 97 Oxygen Delivery Method Room Air Intake Visit Reasons: Pre op vitrectomy surgery 08/31/24 Allergies acetaminophen [Tylenol] Allergy (Severe, Verified 08/22/24 14:17) Rash and Hives losartan Allergy (Severe, Verified 08/22/24 14:17) Rash and Hives Motrin Allergy (Severe, Uncoded 08/22/24 14:17) Rash and Hives Tobacco use date assessed: 10/20/23 Fall risk assessment: No Falls in past year Last assessed Fall Risk: 08/22/24 Dental Screening Dental Screen Date: 08/22/24 Did you have a dental visit in the last 12 months?: No Did you have a dental problem in the last 6 months where you did not have access to dental care?: No Was dental information given to patient?: Patient declined HPI Pre op vitrectomy surgery 08/31/24 HPI Details Patient presents for preop for vitrectomy of right eye. Hypertension hyperlipidemia chronic liver cirrhosis are stable. [facility] Medical History (Updated 08/22/24 @ 15:25 by Suzan Briscoe MD) Vitreous hemorrhage Hepatocellular carcinoma CKD (chronic kidney disease) stage 3, GFR 30-59 ml/min Hyperglycemia Annual physical exam Annual physical exam Oyof-BAJEH-30 syndrome Chronic kidney disease, stage 4 (severe) Hypertension Foot fracture, right Ribs, multiple fractures Chronic depression PVD (peripheral vascular disease) Iron deficiency anemia Hyperlipidemia Polyp, colonic Liver cirrhosis CVA (cerebral vascular accident) Surgical History History of surgery on wrist History of esophagogastroduodenoscopy (EGD) H/O colonoscopy Family History Father Diabetes mellitus Mother Diabetes mellitus Social History Household Members: Other Household Members Other:: friend Housing: Apartment Alcohol intake: never Patient Tobacco Use Status: Former Tobacco user Tobacco use type: Cigarette e-Cigarette/Vaping Use: Never Used service: No Current occupational status: disabled Cognitive needs: No Hearing needs: No Vision needs: Yes Questionnaire PHQ-9 Over the last 2 weeks, how often have you been bothered by any of the following problems? 1. Little interest or pleasure in doing things: not at all 2. Feeling down, depressed, or hopeless: not at all 3. Trouble falling or staying asleep, or sleeping too much: not at all 4. Feeling tired or having little energy: not at all 5. Poor appetite or overeating: not at all 6. Feeling bad about yourself - or that you are a failure or have let yourself or your family down: not at all 7. Trouble concentrating on things, such as reading the newspaper or watching television: not at all 8. Moving or speaking so slowly that other people could have noticed. Or the opposite - being so fidgety or restless that you have been moving around a lot more than usual: not at all 9. Thoughts that you would be better off or of hurting yourself in some way: not at all Total score: 0 Depression Screening Interpretation: Negative Depression Screening Done: Yes 57053 - PHQ-9 Billing: Yes Source: Developed by Drs. Eric Fernando, Maame Bansal, Ousmane Bassett and colleagues, with an educational sandro from [employer]. Thrive Questionnaire Date Thrive assessed: 08/22/24 I am a: Patient What is your living situation today?: I have a steady place to live Within the past 12 months, did the food you bought not last and you didn't have the money to get more?: I choose not to answer this question Within the past 12 months, did you worry whether your food would run out before you got money to buy more?: Sometimes True Do you have trouble paying for medicines?: I choose not to answer this question Do you have trouble getting transportation to medical appointments?: I choose not to answer this question Do you have trouble paying your heating and electricity bill?: I choose not to answer this question Do you have trouble taking care of your child, family member or friend?: I choose not to answer this question Do you have trouble with day-to-day activities such as bathing, preparing meals, shopping, managing finances, etc.?: I choose not to answer this question Are you currently unemployed and looking for a job?: I choose not to answer this question Are you interested in more education?: I choose not to answer this question Please select the resources that you would like help with: None THRIVE Score: 1 AUDIT C Alcohol Use Questionnaire (AUDIT-C) 1. How often do you have a drink containing alcohol?: Never 3. How often do you have six or more drinks on one occasion?: Never Total Score: 0 JUAN-7 AMB Questionnaire JUAN-7 Date JUAN - 7 assessed: 08/22/24 Feeling nervous, anxious, or on edge: 0 = Not at all Not being able to stop or control worryin = Not at all Worrying too much about different things: 0 = Not at all Trouble relaxin = Not at all Being so restless that it is hard to sit still: 0 = Not at all Becoming easily annoyed or irritable: 0 = Not at all Feeling afraid as if something awful might happen: 0 = Not at all Total JUAN-7 score (0-4 normal; 5-9 mild; 10-14 moderate; 15-21 severe): 0 Source: Developed by Drs. Eric Fernando, Maame Bansal, Ousmane Bassett and colleagues, with an educational sandro from [employer]. JUAN-7 Assessment Billing JUAN-7 Assessment Tool: JUAN-7 Assessment 16186 Review of Systems Const All systems reviewed & are unremarkable except as noted in HPI and below Eyes Reports no additional complaints ENT Reports no additional complaints Card Reports no additional complaints Resp Reports no additional complaints GI Reports no additional complaints Reports no additional complaints Physical exam (Primary Care) Vital Signs: Last Vital Signs Temp 98.6 F 08/22/24 14:00 Pulse 57 08/22/24 14:00 Resp 18 08/22/24 14:00 BP 118/76 08/22/24 14:00 Pulse Ox 97 08/22/24 14:00 Oxygen Delivery Method Room Air 08/22/24 14:00 BMI result Body Mass Index 27.0 Tobacco/Smoking Status: Tobacco use Status Tobacco use date assessed 10/20/23 08/22/24 13:59 Patient Tobacco Use Status Former Tobacco user 08/22/24 13:59 Tobacco use type Cigarette 08/22/24 13:59 e-Cigarette/Vaping Use Never Used 08/22/24 13:59 PHQ-9: PHQ-9 Score PHQ-9: Total score 0 08/22/24 15:08 Depression Screening Interpretation: Negative Thrive Assessment: Date of Thrive Assessment Date Thrive assessed 08/22/24 08/22/24 13:59 Const General: no acute distress HENMT Head: Yes normal to inspection Ears: hearing grossly normal bilaterally Eyes General: appearance normal, both eyes and all related structures Neck Neck: Yes supple Resp Effort & Inspection: normal respiratory effort Auscultation: clear to auscultation bilaterally Cardio Rhythm: regular rhythm Heart sounds: S1 normal heart sound present and S2 normal heart sound present GI Inspection: Yes normal to inspection Palpation (GI): Soft to palpation Percussion: Yes normal to percussion Extrem General: Yes no clubbing, cyanosis or edema Coding Level of Care Code Est Pt Level 4 (89750) Diagnoses Pancytopenia D61.818 CKD (chronic kidney disease) stage 3, GFR 30-59 ml/min N18.30 Liver cirrhosis K74.60 Vitreous hemorrhage H43.10 Additional Codes JUAN-7 Assessment Billing - JUAN-7 Assessment Tool: JUAN-7 Assessment 82153 ([id number]) PHQ-9 - 59326 - PHQ-9 Billing: Yes ([id number]) Assessment & Plan Assessment & Plan (1) Pancytopenia: Code(s): D61.818 - Other pancytopenia Category: Medical Plan: CHECK CBC (2) CKD (chronic kidney disease) stage 3, GFR 30-59 ml/min: Comment: Patient is established with Nephrology Code(s): N18.30 - Chronic kidney disease, stage 3 unspecified Category: Medical Plan: Avoid nephrotoxins monitor renal function check comprehensive panel today (3) Liver cirrhosis: Comment: ex ETOH, ex IVDA, MRI abd 08/2022 2 liver masses, f/u GI, ?liver transplant Code(s): K74.60 - Unspecified cirrhosis of liver Category: Medical Plan: Established with GI, check PT and PTT (4) Vitreous hemorrhage: Code(s): H43.10 - Vitreous hemorrhage, unspecified eye Category: Medical Plan: EKG showed normal sinus rhythm right bundle-branch block no new changes, patient is medically cleared for vitrectomy surgery Orders: Orders Partial Thromboplastin Time Today D61.818 - Other pancytopenia, N18.30 - Chronic kidney disease, stage 3 unspecified AMB EKG-In Office Today I10 - Essential (primary) hypertension, I27.20 - Pulmonary hypertension, unspecified, I51.89 - Other ill-defined heart diseases Complete Blood Count Auto Diff Today D61.818 - Other pancytopenia, N18.30 - Chronic kidney disease, stage 3 unspecified Comprehensive Met. Panel Today D61.818 - Other pancytopenia, N18.30 - Chronic kidney disease, stage 3 unspecified Prothrombin Time INR Today D61.818 - Other pancytopenia, N18.30 - Chronic kidney disease, stage 3 unspecified
[2024-08-22 14:00] VITALS: BP 118/76; PULSE 57; RESP 18; TEMP 37; O2SAT 97; BMI 27.0
--- OUTSIDE RECORDS SUMMARY | 2024-08-22 15:00 | XMS_ITS | Clinical Summary ---
Author Organization [facility] Address [address] [place] [address] Care Team Providers Care Record Press Operator Name Role Phone Suzan Briscoe MD Primary Care Provider Allergies Active Allergy Reactions Criticality Noted Date [...] 12/11/2016 Fall Risk Assessment 2021 Influenza Vaccine (Season Ended) 2024 01/06/2018, 01/12/2007 RSV Adult > 60+ Yrs or (1 - 1-dose 75+ series) 11/12/2031 RSV Ped < 20 months Aged Out No longe r eligible based on patient's age to complete this topic Care Teams Record Press Operator Relationship Specialty Start Date End Date Suzan Briscoe MD [address] [facility] [place] [phone] PCP - General Waist Pleater 09/11/22
== END 2024-08-22 15:26 | disposition home or self-care (01) ==
LOC: HO.HMCC 13:31
PROVIDERS: PCP Internal Medicine; Visit Provider Internal Medicine
DX: D61.818 Other pancytopenia (principal); N18.30 Chronic kidney disease, stage 3 unspecified; K74.60 Unspecified cirrhosis of liver; H43.10 Vitreous hemorrhage, unspecified eye

== ENCOUNTER 2024-09-01 10:11 | Outpatient (REF) | payer MEDICARE, MEDICAID, SELFPAY ==
--- OUTSIDE RECORDS SUMMARY | 2024-09-01 11:47 | XMS_ITS | Clinical Summary ---
Author Organization [facility] Address [address] [place] [address] Care Team Providers Care Talent Development Director Name Role Phone Suzan Briscoe MD Primary Care Provider [phone] Allergies Active Allergy Reactions Criticality Noted Date [...] 53 09/25/2023 2:05 PM EDT Temperature 36.7 C (98 F) 09/25/2023 2:05 PM EDT Respiratory Rate - [...] age to complete this topic Care Teams Talent Development Director Relationship Specialty Start Date End Date Suzan Briscoe MD [address] [place] [phone] PCP - General Dramatic Teacher 09/11/22
[2024-09-01 13:50] LABS: Iron 69 mcg/dL (45-160); Percent Iron Saturation 42 % (15-50); Total Iron Binding Capacity 164 mcg/dL (228-428); Unsaturated Iron Binding 95 ug/dL
[2024-09-01 14:04] LABS: Folate 9.5 ng/mL (> or = 4.0); Vitamin B12 527 pg/mL (200-900)
== END 2024-09-01 10:12 | disposition home or self-care (01) ==
LOC: HO.HMGCLDS 10:11
PROVIDERS: PCP Internal Medicine; Visit Provider Internal Medicine
DX: D61.818 Other pancytopenia (principal)
CPT/HCPCS: 36415; 82607; 82746; 83540

== ENCOUNTER 2024-10-26 09:24 | Outpatient (AMB) | payer MEDICARE, MEDICAID, SELFPAY ==
--- NOTE | 2024-10-26 09:33 | HO.NEPHOV ---
Vital Signs 10/26/24 09:34 Height 5 ft 9 in Weight 176 lb BMI 26.0 BP 110/60 Blood Pressure Location Lt brachial Position Sitting Pulse 81 Pulse Source Pulse Oximeter Pulse Oximetry (%) 98 Oxygen Delivery Method Room Air Intake Visit Reasons: [facility] HFU/ Conf Vocational Education Professional Required: No Accompanied by: Friend Allergies acetaminophen (Tylenol) Allergy (Severe, Verified 10/26/24 09:38) Rash and Hives losartan Allergy (Severe, Verified 10/26/24 09:38) Rash and Hives Motrin Allergy (Severe, Uncoded 08/22/24 14:17) Rash and Hives Medication List - Last Reconciled 10/26/24 by Andrew Spangler MD allopurinol 300 mg PO DAILY atorvastatin 20 mg PO DAILY cane As directed citalopram 40 mg PO DAILY furosemide (Lasix) 20 mg PO DAILY meclizine 25 mg PO BID PRN midodrine 5 mg PO TID rifaximin 550 mg PO BID HPI Comments Details: Pleasant middle aged man with a history of chronic alcohol use and cirrhosis of the liver. He was chronic kidney disease with a serum creatinine 1.6 back in 2022. He has history of diabetes mellitus. He was previously seen by me in my previous practice and subsequently transferred his care to with the new practice. He was recently seen by Gastroenterology and started on spironolactone 50 mg. He was feeling dizzy therefore he has stopped spironolactone. He was not taking spironolactone for the last week or so. History of hepatocellular carcinoma status post radiofrequency ablation, follows with Oncology Here for follow up;Had and episode of epistaxis 10/26/24 The patient is a 68-year-old male with CKD Recently hospitalized for ascitic fluid drainage. Requires weekly fluid drainage managed through radiology. Scheduled for fluid drainage in the next week or two. Sustained ERNESTINE Cr at 2.1 Currently improving Liver dysfunction causing jaundice and renal impairment. Liver dysfunction not related to hepatitis, causing increased jaundice. Renal impairment secondary to liver dysfunction, slight improvement noted. Reports ongoing nausea and vomiting. On furosemide 20 mg and midodrine for fluid retention and blood pressure. MEDICATIONS: - Furosemide 20 mg for fluid retention - Midodrine for blood pressure management DIAGNOSTIC RESULTS: - Blood tests from recent hospitalization show slight improvement in kidney function. [facility] Medical History (Updated 08/22/24 @ 15:25 by Suzan Briscoe MD) Vitreous hemorrhage Hepatocellular carcinoma CKD (chronic kidney disease) stage 3, GFR 30-59 ml/min Hyperglycemia Annual physical exam Annual physical exam Vwmy-LKANJ-77 syndrome Chronic kidney disease, stage 4 (severe) Hypertension Foot fracture, right Ribs, multiple fractures Chronic depression PVD (peripheral vascular disease) Iron deficiency anemia Hyperlipidemia Polyp, colonic Liver cirrhosis CVA (cerebral vascular accident) Surgical History History of surgery on wrist History of esophagogastroduodenoscopy (EGD) H/O colonoscopy Family History Father Diabetes mellitus Mother Diabetes mellitus Social History Household Members: Other Household Members Other:: friend Housing: Apartment Alcohol intake: never Patient Tobacco Use Status: Former Tobacco user Tobacco use type: Cigarette e-Cigarette/Vaping Use: Never Used service: No Current occupational status: disabled Cognitive needs: No Hearing needs: No Vision needs: Yes Physical Exam Vital Signs: Last Vital Signs Pulse 81 10/26/24 09:34 BP 110/60 10/26/24 09:34 Pulse Ox 98 10/26/24 09:34 Oxygen Delivery Method Room Air 10/26/24 09:34 BMI result Body Mass Index 26.0 Const General: comfortable; No acute distress Orientation/consciousness: patient oriented x3 Eyes General: appearance normal, both eyes and all related structures Visual Manuel: normal visual manuel by confrontation Neck Neck: Yes supple and Yes no JVD Resp Effort & Inspection: normal respiratory effort and respiratory effort not decreased Cardio Palpation: no palpable S3 and no palpable S4 Heart sounds: no rubs GI Inspection: Yes normal to inspection Palpation (GI): Soft to palpation Percussion: Yes normal to percussion, Yes Fluid wave present and Yes bilateral flank dullness Auscultation: normal bowel sounds General: Yes no CVA tenderness Back/Spine/Pelvis Back: no CVA tenderness Skin General skin exam: no petechiae and no purpura Neuro General: patient oriented x3 and no focal motor deficits Extrem General: No clubbing and No edema Results Reviewed Nephrology Results: Hgb, (14.0-18.0) 9.4 g/dl L 08/22/24 WBC, (4.8-10.8) 3.2 X10*3/uL L 08/22/24 Plt Count, (160-400) 32 X10*3/uL L 08/22/24 Sodium, (135-145) 138 mmol/L 08/22/24 Potassium, (3.3-5.1) 4.7 mmol/L 08/22/24 Chloride, (96-108) 107 mmol/L 08/22/24 Carbon Dioxide, (22-29) 24 mmol/L 08/22/24 BUN, (9-16) 39 mg/dL H 08/22/24 Creatinine, (0.5-1.4) 2.05 mg/dL H 08/22/24 Calcium, (8.4-10.2) 9.0 mg/dL 08/22/24 Urine Protein, (Neg-Trace) Negative mg/dL 05/25/24 Urine Creatinine 89.77 mg/dL 05/25/24 Renal US 06/09/24 Assessment & Plan Assessment & Plan (1) Liver cirrhosis: Comment: ex ETOH, ex IVDA, MRI abd 08/2022 2 liver masses, f/u GI, ?liver transplant Code(s): K74.60 - Unspecified cirrhosis of liver Category: Medical (2) Chronic kidney disease, stage 4 (severe): Code(s): N18.4 - Chronic kidney disease, stage 4 (severe) Category: Medical (3) Liver cirrhosis: Comment: ex ETOH, ex IVDA, MRI abd 08/2022 2 liver masses, f/u GI, ?liver transplant Code(s): K74.60 - Unspecified cirrhosis of liver Category: Medical (4) CKD (chronic kidney disease) stage 3, GFR 30-59 ml/min: Comment: Patient is established with Nephrology Code(s): N18.30 - Chronic kidney disease, stage 3 unspecified Category: Medical (5) Hepatocellular carcinoma: Comment: s/p radiofrequency ablation at [facility] 01/2024, follow-up with [facility] Oncology Code(s): C22.0 - Liver cell carcinoma Category: Medical Plan Chronic kidney disease in the setting of cirrhosis and hepatocellular carcinoma. ERNESTINE resolving renal ultrasonogram. - shows bilateral cyst 5 mm non obstruction steon in right kidney No hydrao Blood pressure is acceptable. He is unable to tolerate spironolactone 50 mg. Keep Lasix 20 mg p.o. daily. Encouraged to stay on low-sodium diet. Hepatocellular CA- follow with GI Will arrange for paracenthesis next week and again in 3 weeks Orders: Orders Basic Metabolic Panel 4 Weeks K74.60 - Unspecified cirrhosis of liver, N18.4 - Chronic kidney disease, stage 4 (severe) US paracentesis abd w/image 1 Week K74.60 - Unspecified cirrhosis of liver US paracentesis abd w/image 3 Weeks K74.60 - Unspecified cirrhosis of liver Coding Level of Care Code Est Pt Level 4 (51926) Diagnoses Liver cirrhosis K74.60 Chronic kidney disease, stage 4 (severe) N18.4 CKD (chronic kidney disease) stage 3, GFR 30-59 ml/min N18.30 Hepatocellular carcinoma C22.0
[2024-10-26 09:34] VITALS: BP 110/60; PULSE 81; O2SAT 98; BMI 26.0
--- OUTSIDE RECORDS SUMMARY | 2024-10-26 10:07 | XMS_ITS | Clinical Summary ---
Author Organization [facility] Address [address] [place] [address] Care Team Providers Care Japanese Tutor Name Role Phone Suzan Briscoe MD Primary Care Provider [phone] Allergies Active Allergy Reactions Criticality Noted Date [...] Fall Risk Assessment 2021 Influenza Vaccine (#1) 2024 8, 01/12/2007 RSV Adult > 60+ Yrs or (1 - 1-dose 75+ series) 11/12/2031 RSV Ped < 20 months Aged Out No longe r eligible based on patient's age to complete this topic Care Teams Japanese Tutor Relationship Specialty Start Date End Date Suzan Briscoe MD [address] [place] [phone] PCP - General Radio Artist 09/11/22
--- OUTSIDE RECORDS SUMMARY | 2024-10-26 10:07 | XMS_ITS | Clinical Summary ---
Author Organization [facility] Address [address] [place] [address] Care Team Providers Care Drying Machine Operator Name Role Phone Unavailable Primary Care Provider [...] Plan of Treatment Not on file Insurance [place] D[place] [facility] SAFETY NET DENTAL
--- OUTSIDE RECORDS SUMMARY | 2024-10-26 10:07 | XMS_ITS | Clinical Summary ---
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 [address] [phone] Truman Gaona MD [address] [facility] [address] [place] [address] Health Maintenance Due Date Last Done Comments Colorectal Cancer Screening: Annual FOBT 2005 Colorectal Cancer Screening: Colonoscopy 2005 Colorectal Cancer Screening: Sigmoidoscopy 2005 Hepatitis B Vaccine (1 of 3 - Risk 3-dose series) 2016 07/20/2007, 06/17/2007 Pneumococcal Vaccine: 50+ Ye ars (2 of 2 - PCV) 10/13/2020 10/14/2019 Influenza Vaccine (#1) 2024 01/06/2018, 2005 Pneumococcal Vaccine: Peds ( 0 to 5 Years) and At-Risk Patients (6 to 49 Years) Discontinued 10/14/2019 Insurance Medicare Medicaid [place] Care Teams Machine Egg Washer Relationship Specialty Start Date End Date Suzan Briscoe MD [address] [place] [address] PCP - General 03/19/20
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
== END 2024-10-26 09:58 | disposition home or self-care (01) ==
LOC: HO.HKAS 09:24
PROVIDERS: PCP Internal Medicine; Visit Provider Internal Medicine Hypertension Specialist
DX: K74.60 Unspecified cirrhosis of liver (principal); N18.4 Chronic kidney disease, stage 4 (severe); N18.30 Chronic kidney disease, stage 3 unspecified; C22.0 Liver cell carcinoma
CPT/HCPCS: 99214

== ENCOUNTER → 2024-10-26 09:24 | Outpatient (BNVA) | payer MEDICARE, MEDICAID, SELFPAY | PROVIDERS: PCP Internal Medicine; Visit Provider Internal Medicine Hypertension Specialist | DX: I12.9 Hypertensive chronic kidney disease with stage 1 through stage 4 chronic kidney disease, or unspecified chronic kidney disease (principal); N18.4 Chronic kidney disease, stage 4 (severe); K74.60 Unspecified cirrhosis of liver; C22.0 Liver cell carcinoma | CPT/HCPCS: 99212 ==

== ENCOUNTER → 2024-11-04 23:59 | Outpatient (BNV) | payer MEDICARE, MEDICAID, SELFPAY | PROVIDERS: PCP Internal Medicine; Visit Provider Internal Medicine | DX: K92.2 Gastrointestinal hemorrhage, unspecified (principal); K76.6 Portal hypertension | CPT/HCPCS: G0180 ==

== ENCOUNTER 2024-11-08 08:49 | Day surgery (SDC) | payer MEDICARE, MEDICAID, SELFPAY ==
--- OUTSIDE RECORDS SUMMARY | 2024-10-31 11:19 | XMS_ITS | Clinical Summary ---
Author Organization [facility] Address [address] [place] [address] Care Team Providers Care Private Sector Executive Name Role Phone Suzan Briscoe MD Primary Care Provider [phone] Allergies Active Allergy Reactions Criticality Noted Date [...] age to complete this topic Care Teams Private Sector Executive Relationship Specialty Start Date End Date Suzan Briscoe MD [address] [place] [phone] PCP - General Brand Ambassador Promotional Model 09/11/22
--- OUTSIDE RECORDS SUMMARY | 2024-10-31 11:19 | XMS_ITS | Clinical Summary ---
Author Organization [facility] Address [address] [place] [address] Phone Care Team Providers Care Senior Accountant Cpa Name Role Phone Suzan Briscoe MD Primary Care Provider [phone] Allergies Active Allergy Reactions Criticality Noted Date [...] cirrhosis 04/30/2018 Biliary cirrhosis 04/30/2018 Atherosclerosis of [place] ar teries of extremities with intermittent claudication, [...] Visit [facility] [address] [phone] Truman Gaona MD [address] [facility] [address] [place] [address] Health Maintenance Due Date Last Done Comments [...] Medicaid [place] Care Teams Senior Accountant Cpa Relationship Specialty Start Date End Date Suzan Briscoe MD [address] [place] [address] PCP - General 03/19/20
--- OUTSIDE RECORDS SUMMARY | 2024-10-31 11:19 | XMS_ITS | Clinical Summary ---
Author Organization [facility] Address [address] [place] [address] Care Team Providers Care Cray Fishing Hand Name Role Phone Unavailable Primary Care Provider [...] 0 10/12/2019 Safety and Environment Answer Date Tohmas rded Safety 0 10/12/2019 Utilities Answer Date Recorded Utilities 0 10/12/2019 Employment Answer Date Recorded Employment 0 10/12/2019 Sex and Gender Information Value Date Recorded Sex Assigned at Not on file Legal Sex Male 12:39 PM PST Gender Identity Not on file Sexual Orientation Not on file Plan of Treatment Not on file [place] [facility] SAFETY NET DENTAL
--- OUTSIDE RECORDS SUMMARY | 2024-10-31 11:19 | XMS_ITS | Encounter Summary ---
Author Organization [facility] Address [address] [place] [address] Care Team Providers Care Casing Runner Name Role Phone Suzan Briscoe MD Primary Care Provider [phone] Encounter Details Date Type Department Care Team (Late st Contact Info) Description 10/17/2024 Lab Requisition [facility] - Main Lab [address] [place] [phone] Roderick Veliz MD [address] [place] [address] Anemia, unspecified Social History Tobacco Use Types [...] Care Team (Late st Contact Info) Description 01/30/2025 10:30 AM EST Office Visit [facility] Hematology Oncology [address] [place] [address] Ignacio Cohen MD [address] [place] [phone] documented as of this encounter Visit Diagnoses Diagnosis Anemia, unspecified documented in this encounter Care Teams Casing Runner Relationship Specialty Start Date End Date Suzan Briscoe MD [address] [place] [address] PCP - General Internal Medicine 04/11/24 documented as of this encounter
[2024-11-08] VITALS (8 sets, daily range): BP systolic 97–123; BP diastolic 55–66; PULSE 72–93; RESP 16; TEMP 36.9–37.3; O2SAT 98–99; BMI 25.7
--- NOTE | ~2024-11-08 | US_ITS ---
EXAMINATION: US GUIDED PARACENTESIS CLINICAL INFORMATION: Cirrhosis of liver COMPARISON: None available. TECHNIQUE: Following explaining ultrasound-guided paracentesis procedure, benefits and risk, a written consent was obtained. Patient was placed supine on fluoroscopy table and preliminary ultrasound imaging was obtained through 4 quadrants of the abdomen. An optimal site was selected along the right lower quadrant and marked. The marked site was cleaned and draped in usual sterile manner. 1% lidocaine was inserted puncture site. Through a small skin incision a 5 Chilean 7 cm Yueh catheter was inserted from the skin into the peritoneal space. After observing fluid return, stylet was withdrawn and catheter connected to vacuum bottle via connecting cannula. After obtaining all fluid and observing normal fluid return, catheter was withdrawn and complete hemostasis achieved at puncture site. Simple dressing was applied at the puncture site. Patient tolerated procedure extremely well. FINDINGS: On preliminary ultrasound imaging there is small to moderate amount of ascites. Approximately 3.9 L of clear yellowish fluid was drained from right lower quadrant. None of this fluid was sent to lab. US/US paracentesis abd w/image IMPRESSION: Successful ultrasound-guided therapeutic paracentesis performed without immediate complications. Electronically signed by: Rowdy Diamond MD 11/09/2024 07:16 AM EDT
[2024-11-08 09:41] LABS: Hematocrit 25.0 % (42.0-52.0); Hemoglobin 8.6 g/dl (14.0-18.0); Imm Gran Abs Auto 0.03 X10*3/uL (0.00-0.03); Imm Gran Pct Auto 1.2 % (0.0-0.4); Lymphocytes Absolute Auto 0.6 X10*3/uL (1.2-4.9); MANUAL DIFF FLAG SCAN; Mean Corpuscular HGB Conc 34.4 g/dl (31.0-36.0); Mean Corpuscular Hemoglobin 31.0 pg (27.0-33.0); Mean Corpuscular Volume 90.3 fL (80.0-98.0); NRBC Abs Auto 0.000 X10*3/uL (0.0-0.012); NRBC Pct Auto 0.0 /100WBC (0.0-0.2); Red Blood Count 2.77 X10*6/uL (4.60-5.80); SCAN SMEAR FLAG 1
[2024-11-08 09:43] LABS: INTERNATIONAL NORM RATIO 1.6 (0.9-1.1); Prothrombin Time 17.8 SEC (10.9-12.4)
[2024-11-08 09:47] LABS: Platelet Count 35 X10*3/uL (160-400); White Blood Count 2.4 X10*3/uL (4.8-10.8)
[2024-11-08 09:53] LABS: Anion Gap 11 (12-20); Blood Urea Nitrogen 28 mg/dL (9-16); Calcium 8.5 mg/dL (8.4-10.2); Carbon Dioxide 26 mmol/L (22-29); Chloride 106 mmol/L (96-108); Creatinine Clr Calc Pharmacy 33.6; Estimated Glomerular Filt Rate 31; Potassium 4.4 mmol/L (3.3-5.1); Sodium 139 mmol/L (135-145)
--- NOTE | 2024-11-08 10:06 | PC.NURSE ---
ultrasound by bedside doing a bedside ultrasound to see if the patient has enough fluid to perform his paracentesis. aware of plan of care.
--- NOTE | 2024-11-08 10:12 | PC.NURSE ---
there was an order for a pathologists cbc review order. called hematology regarding the order and stated that the order is there for the pathologuist to review because there was something on the slide they didnt like
[2024-11-08] MEDS: Lidocaine HCl 1 % MPF 5 ML VIAL SUBCUT (11:23)
== END 2024-11-08 13:00 | disposition home or self-care (01) ==
LOC: HO.SSS 08:50
PROVIDERS: Radiology Diagnostic Radiology; PCP Internal Medicine; Visit Provider Internal Medicine Hypertension Specialist
DX: K74.60 Unspecified cirrhosis of liver (principal); I12.9 Hypertensive chronic kidney disease with stage 1 through stage 4 chronic kidney disease, or unspecified chronic kidney disease; N18.4 Chronic kidney disease, stage 4 (severe); C22.0 Liver cell carcinoma; R73.9 Hyperglycemia, unspecified; D50.9 Iron deficiency anemia, unspecified; E78.5 Hyperlipidemia, unspecified; F32.A Depression, unspecified; Z86.73 Personal history of transient ischemic attack (TIA), and cerebral infarction without residual deficits; Z79.899 Other long term (current) drug therapy; Z88.6 Allergy status to analgesic agent; Z88.8 Allergy status to other drugs, medicaments and biological substances; Z98.890 Other specified postprocedural states; Z87.891 Personal history of nicotine dependence
CPT/HCPCS: 36415; 49083; 80048; 85025; 85610; J2003

== ENCOUNTER → 2024-11-08 09:35 | Outpatient (BNV) | payer MEDICARE, MEDICAID, SELFPAY | PROVIDERS: PCP Internal Medicine; Visit Provider Radiology Diagnostic Radiology | DX: K74.60 Unspecified cirrhosis of liver (principal) | CPT/HCPCS: 49083 ==

== ENCOUNTER 2024-11-28 15:06 | Outpatient (REF) | payer MEDICARE, MEDICAID, SELFPAY ==
--- OUTSIDE RECORDS SUMMARY | 2024-11-28 17:36 | XMS_ITS | Encounter Summary ---
Author Organization [facility] Address [address] [place] [address] Support Name Relationship Address Phone
[2024-11-28 18:22] LABS: Hematocrit 24.5 % (42.0-52.0); Hemoglobin 8.3 g/dl (14.0-18.0); Mean Corpuscular HGB Conc 33.9 g/dl (31.0-36.0); Mean Corpuscular Hemoglobin 32.3 pg (27.0-33.0); Mean Corpuscular Volume 95.3 fL (80.0-98.0); NRBC Abs Auto 0.000 X10*3/uL (0.0-0.012); NRBC Pct Auto 0.0 /100WBC (0.0-0.2); Red Blood Count 2.57 X10*6/uL (4.60-5.80); White Blood Count 2.8 X10*3/uL (4.8-10.8)
[2024-11-28 18:23] LABS: Platelet Count 31 X10*3/uL (160-400)
[2024-11-28 18:43] LABS: Anion Gap 13 (12-20); Blood Urea Nitrogen 48 mg/dL (9-16); Calcium 8.7 mg/dL (8.4-10.2); Carbon Dioxide 21 mmol/L (22-29); Chloride 105 mmol/L (96-108); Estimated Glomerular Filt Rate 26; Potassium 4.3 mmol/L (3.3-5.1); Sodium 135 mmol/L (135-145)
== END 2024-11-28 15:07 | disposition home or self-care (01) ==
LOC: HO.HKASLDS 15:06
PROVIDERS: Visit Provider Internal Medicine Hypertension Specialist
DX: N18.4 Chronic kidney disease, stage 4 (severe) (principal); K74.60 Unspecified cirrhosis of liver
CPT/HCPCS: 36415; 80048; 85027

== ENCOUNTER 2024-11-30 10:06 | Outpatient (AMB) | payer MEDICARE, MEDICAID, SELFPAY ==
[2024-11-30 10:12] VITALS: BP 114/64; PULSE 88; O2SAT 96; BMI 26.7
--- NOTE | 2024-11-30 10:12 | HO.NEPHOV_ITS ---
Vital Signs 11/30/24 10:12 Height 5 ft 9 in Weight 181 lb BMI 26.7 BP 114/64 Blood Pressure Location Lt brachial Position Sitting Pulse 88 Pulse Source Pulse Oximeter Pulse Oximetry (%) 96 Oxygen Delivery Method Room Air Intake Visit Reasons: 4wk w labs Animal Pathologist Required: No Accompanied by: Spouse Allergies acetaminophen (Tylenol) Allergy (Severe, Verified 11/30/24 10:14) Rash and Hives losartan Allergy (Severe, Verified 11/30/24 10:14) Rash and Hives Motrin Allergy (Severe, Uncoded 11/08/24 09:31) Rash and Hives Medication List - Last Reconciled 11/30/24 by Andrew Spangler MD allopurinol 300 mg PO DAILY atorvastatin 20 mg PO DAILY cane As directed ciprofloxacin HCl 500 mg PO DAILY citalopram 40 mg PO DAILY furosemide (Lasix) 20 mg PO DAILY hydromorphone 2 mg PO Q4-6H PRN meclizine 25 mg PO BID PRN midodrine 5 mg PO TID omeprazole 20 mg PO DAILY rifaximin 550 mg PO BID HPI Comments Details: Pleasant middle aged man with a history of chronic alcohol use and cirrhosis of the liver. He was chronic kidney disease with a serum creatinine 1.6 back in 2022. He has history of diabetes mellitus. He was previously seen by me in my previous practice and subsequently transferred his care to with the new practice. He was recently seen by Gastroenterology and started on spironolactone 50 mg. He was feeling dizzy therefore he has stopped spironolactone. He was not taking spironolactone for the last week or so. History of hepatocellular carcinoma status post radiofrequency ablation, follows with Oncology Here for follow up;Had and episode of epistaxis 10/26/24 The patient is a 68-year-old male with CKD Recently hospitalized for ascitic fluid drainage. Requires weekly fluid drainage managed through radiology. Scheduled for fluid drainage in the next week or two. Sustained ERNESTINE Cr at 2.1 Currently improving Liver dysfunction causing jaundice and renal impairment. Liver dysfunction not related to hepatitis, causing increased jaundice. Renal impairment secondary to liver dysfunction, slight improvement noted. Reports ongoing nausea and vomiting. On furosemide 20 mg and midodrine for fluid retention and blood pressure. MEDICATIONS: - Furosemide 20 mg for fluid retention - Midodrine for blood pressure management DIAGNOSTIC RESULTS: - Blood tests from recent hospitalization show slight improvement in kidney function. 11/30/24 - The patient is a 69-year-old male presenting with ascites /Liver Ca - Ascites managed with periodic paracentesis, last removing 5 liters at [facility]. On 11/08/2024 3.9 L was removed at [facility] - Hospitalized for fluid management, eight-day stay at [facility]. - On diuretics for fluid retention. - Weight increased from 173 to 181 pounds. Now on ciprofloxacin for 30 days. 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 Chronic kidney disease, stage 4 (severe) Hypertension Foot fracture, right Ribs, multiple fractures Chronic depression PVD (peripheral vascular disease) Iron deficiency anemia Hyperlipidemia Polyp, colonic Liver cirrhosis CVA (cerebral vascular accident) Surgical History History of surgery on wrist History of esophagogastroduodenoscopy (EGD) H/O colonoscopy Family History Father Diabetes mellitus Mother Diabetes mellitus Social History Household Members: Other Household Members Other:: friend Housing: Apartment Alcohol intake: never Patient Tobacco Use Status: Former Tobacco user Tobacco use type: Cigarette e-Cigarette/Vaping Use: Never Used service: No Current occupational status: disabled Cognitive needs: No Hearing needs: No Vision needs: Yes Physical Exam Vital Signs: Last Vital Signs Pulse 88 11/30/24 10:12 BP 114/64 11/30/24 10:12 Pulse Ox 96 11/30/24 10:12 Oxygen Delivery Method Room Air 11/30/24 10:12 BMI result Body Mass Index 26.7 Results Reviewed Nephrology Results: Hgb, (14.0-18.0) 8.3 g/dl L 11/28/24 WBC, (4.8-10.8) 2.8 X10*3/uL L 11/28/24 Plt Count, (160-400) 31 X10*3/uL L 11/28/24 Sodium, (135-145) 135 mmol/L 11/28/24 Potassium, (3.3-5.1) 4.3 mmol/L 11/28/24 Chloride, (96-108) 105 mmol/L 11/28/24 Carbon Dioxide, (22-29) 21 mmol/L L 11/28/24 BUN, (9-16) 48 mg/dL H 11/28/24 Creatinine, (0.5-1.4) 2.52 mg/dL H 11/28/24 Calcium, (8.4-10.2) 8.7 mg/dL 11/28/24 Renal US 06/09/24 Assessment & Plan Assessment & Plan (1) Liver cirrhosis: Comment: ex ETOH, ex IVDA, MRI abd 08/2022 2 liver masses, f/u GI, ?liver transplant Code(s): K74.60 - Unspecified cirrhosis of liver Category: Medical Plan: Follow with GI Will arrnage for another Paracenthesis (2) Chronic kidney disease, stage 4 (severe): Code(s): N18.4 - Chronic kidney disease, stage 4 (severe) Category: Medical Plan: Another Episode of ERNESTINE which has resolved. Current creatinine is 1.74. (3) Liver cirrhosis: Comment: ex ETOH, ex IVDA, MRI abd 08/2022 2 liver masses, f/u GI, ?liver transplant Code(s): K74.60 - Unspecified cirrhosis of liver Category: Medical (4) Hepatocellular carcinoma: Comment: s/p radiofrequency ablation at [facility] 01/2024, follow-up with [facility] Oncology Code(s): C22.0 - Liver cell carcinoma Category: Medical Plan: Follow up with GI Plan Added Protonix 40 mg q.d. for heartburn Orders: Orders Complete Blood Count Auto Diff 4 Weeks N18.30 - Chronic kidney disease, stage 3 unspecified US paracentesis abd w/image Today K74.60 - Unspecified cirrhosis of liver Blood Urea Nitrogen 4 Weeks N18.30 - Chronic kidney disease, stage 3 unspecified, N18.4 - Chronic kidney disease, stage 4 (severe) Medications: New pantoprazole (Protonix) 40 mg PO DAILY 90 tabs 1RF Coding Level of Care Code Est Pt Level 4 (78422) Diagnoses Liver cirrhosis K74.60 Chronic kidney disease, stage 4 (severe) N18.4 Hepatocellular carcinoma C22.0
--- OUTSIDE RECORDS SUMMARY | 2024-11-30 12:21 | XMS_ITS | Encounter Summary ---
Author Organization [facility] Address [address] [place] [address] Care Team Providers Care Director Experimental Medicine Name Role Phone Suzan Briscoe MD Primary Care Provider [phone] Encounter Details Date Type Department Care Team (Late st Contact Info) Description 10/24/2024 Lab Requisition [facility] - Main Lab [address] [facility] [place] [phone] Roderick Veliz MD [address] [place] [address] Anemia, unspecified Social History Tobacco Use Types [...] Description 01/30/2025 10:30 AM EST Office Visit [facility] Hematology Oncology [address] [place] [phone] Ignacio Cohen MD [address] [place] [phone] 04/07/2025 2:20 PM EST Office Visit Gastroenterology - [place] 175 [facility] 175 [facility] [address] [place] [phone] Tania Noguera NP 175 [facility] [address] [place] [address] documented as of this encounter Visit Diagnoses Diagnosis Anemia, unspecified documented in this encounter Care Teams Director Experimental Medicine Relationship Specialty Start Date End Date Suzan Briscoe MD [address] [place] [phone] PCP - General Internal Medicine 04/11/24 documented as of this encounter
--- OUTSIDE RECORDS SUMMARY | 2024-11-30 12:21 | XMS_ITS | Encounter Summary ---
Author Organization [facility] Address [address] [place] [address] Care Team Providers Care Appliance Assembler Name Role Phone Suzan Briscoe MD Primary Care Provider [phone] Encounter Details Date Type Department Care Team (Late st Contact Info) Description 10/17/2024 Lab Requisition [facility] - Main Lab [address] [facility] [place] [phone] Roderick Veliz MD [address] [place] [address] Anemia, unspecified Social History Tobacco Use Types [...] [facility] [address] [place] [phone] Ignacio Cohen MD [address] [place] [phone] 04/07/2025 2:20 PM EST Office Visit Gastroenterology - [place] 175 [facility] 175 [facility] [address] [place] [phone] Tania Noguera NP 175 [facility] [address] [place] [address] documented as of this encounter Visit Diagnoses Diagnosis Anemia, unspecified documented in this encounter Care Teams Appliance Assembler Relationship Specialty Start Date End Date Suzan Briscoe MD [address] [place] [phone] PCP - General Internal Medicine 04/11/24 documented as of this encounter
--- OUTSIDE RECORDS SUMMARY | 2024-11-30 12:21 | XMS_ITS | Clinical Summary ---
Author Organization [facility] Address [address] [place] [address] Care Team Providers Care Manager Renewable Energy Name Role Phone Suzan Briscoe MD Primary [...] age to complete this topic Care Teams Manager Renewable Energy Relationship Specialty Start Date End Date Suzan Briscoe MD [address] [place] [phone] PCP - General Interactive Designer 09/11/22
--- OUTSIDE RECORDS SUMMARY | 2024-11-30 12:22 | XMS_ITS | Encounter Summary ---
Author Organization [facility] Address [address] [place] [address] Care Team Providers Care Chairman Emeritus Name Role Phone Suzan Briscoe MD Primary Care Provider [phone] Reason for Visit * Reason Onset Date Comments Appointment 11/28/2024 Encounter Details Date Type Department Care Team (Late st Contact Info) Description 11/28/2024 Telephone Gastroenterology - [address] [phone] Isiah Marucm MD [address] [address] Social History Tobacco Use Types Packs/Day Years [...] as of this encounter Progress Notes * Deanna Silva - 11/28/2024 1:57 PM EDT Pt was in [facility] on 11/20 and was discharged on 11/25 and was told to call Dr. Carey to set up a day he can get his stomach fluid drained documented in this encounter Plan of Treatment Upcoming Encounters Date Type Department Care Team (Late st Contact Info) Description 01/30/2025 10:30 AM EST Office Visit [facility] Hematology Oncology [address] [place] [phone] Ignacio Cohen MD [address] [place] [phone] 04/07/2025 2:20 PM EST Office Visit Gastroenterology - [place] 175 [facility] 175 [facility] [address] [place] [phone] Tania Noguera NP [address] [address] documented as of this encounter Visit Diagnoses Not on filedocumented in this encounter Care Teams Chairman Emeritus Relationship Specialty Start Date End Date Suzan Briscoe MD [address] [facility] [place] [phone] PCP - General Internal Medicine 04/11/24 documented as of this encounter
--- OUTSIDE RECORDS SUMMARY | 2024-11-30 12:22 | XMS_ITS | Clinical Summary ---
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 reflex microscopic and culture (09/15/2024 6:01 PM EDT) Specific [place] Urine 1.013 1.003 - 1.030 LAB URINALYSIS - AUTOMATED METHOD 09/15/2024 6:31 PM [facility] pH, Urine 6.0 5.0 - 8.0 pH LAB URINALYSIS - AUTOMATED METHOD 09/15/2024 6:31 PM [facility] Leukocytes, Urine Negative Negative LAB URINALYSIS - AUTOMATED METHOD 09/15/2024 6:31 PM [facility] Nitrite, Urine Negative Negative LAB URINALYSIS - AUTOMATED METHOD 09/15/2024 6:31 PM [facility] Protein, Urine Negative <=Trace mg/dL LAB URINALYSIS - AUTOMATED METHOD 09/15/2024 6:31 PM [facility] Glucose, Urine Negative Negative mg/dL LAB URINALYSIS - AUTOMATED METHOD 09/15/2024 6:31 PM [facility] Ketones, Urine Negative Negative mg/dL LAB URINALYSIS - AUTOMATED METHOD 09/15/2024 6:31 PM [facility] Urobilinogen, Urine >=8.0(A) 0.2 - 1.0 mg/dL LAB URINALYSIS - AUTOMATED METHOD 09/15/2024 6:31 PM [facility] Bilirubin, Urine Small(A) Negative LAB URINALYSIS - AUTOMATED METHOD 09/15/2024 6:31 PM [facility] Blood, Urine Negative Negative LAB URINALYSIS - AUTOMATED METHOD 09/15/2024 6:31 PM [facility] Urine Urine specimen obtained by clean catch procedure / Unknown Non-blood Collection / Unknown 09/15/2024 6:01 PM EDT 09/15/2024 6:18 PM EDT Hui Valerio Brandt LAB URINE ORDERABLES Jayleen l Result Performing Organization Address [facility] Co de Phone Number [facility] [address] [place] [address], [place] [phone] * Paulino urine culture tube (09/15/2024 6:01 PM EDT) Extra Tube Hold for add-ons. 09/15/2024 8:01 PM EDT [facility] Comment:Auto resulted. Urine Urine specimen obtained by clean catch procedure / Unknown Non-blood Collection / Unknown 09/15/2024 6:01 PM EDT 09/15/2024 6:[address] [facility] Teodoro Brandt LAB URINE ORDERABLES Jayleen l Result Performing Organization Address [facility] Co de Phone Number [facility] [address] [place] [address], [place] [phone] * XR Chest 2 Views (09/15/2024 3:00 PM EDT) Anatomical Region Laterality Modality Body Radiographic Chen ging 09/15/2024 3:36 PM EDT Impressions 09/15/2024 3:37 PM EDT No acute findings. -------- FINAL REPORT -------- Dictated By: Kadeem Coreas Dictated Date: 09/15/2024 15:36 ET Assigned Physician: Kadeem Coreas Reviewed and Electronically Signed By: Kadeem Coreas Signed Date: 09/15/2024 15:37 ET Workstation ID: [id number] Transcribed By: Self Edit Transcribed Date: 09/15/2024 15:36 ET Narrative 09/15/2024 3:37 PM EDT PROCEDURE: PA and lateral radiographs of the chest. HISTORY: chest pain. COMPARISON: 05/05/2024. FINDINGS: Atherosclerotic calcifications of the aorta. Lungs, pleural spaces, pulmonary vasculature, and cardiomediastinal contours are normal. Procedure Note Kadeem Coreas MD - 09/15/2024 PROCEDURE: PA and lateral radiographs of the chest. HISTORY: chest pain. COMPARISON: 05/05/2024. FINDINGS: Atherosclerotic calcifications of the aorta. Lungs, pleural spaces,pulmonary vasculature, and cardiomediastinal contours are normal. IMPRESSION: No acute findings. -------- FINAL REPORT -------- Dictated By: Kadeem Coreas Dictated Date: 09/15/2024 15:36 ET Assigned Physician: Kadeem Coreas Reviewed and Electronically Signed By: Kadeem Coreas Signed Date: 09/15/2024 15:37 ET Workstation ID: [id number] Transcribed By: Self Edit Transcribed Date: 09/15/2024 15:36 ET us Hui Brandt DO IMG XR PROCEDURES Final R esult * ECG 12 lead (09/15/2024 2:16 PM EDT) Ventricular Rate ECG 60 BPM GEMUSE Atrial Rate 60 BPM GEMUSE P-R Interval 162 ms GEMUSE QRS Duration 130 ms GEMUSE Q-T Interval 490 ms GEMUSE QTc 490 ms GEMUSE P Wave [place] 59 degrees GEMUSE R [place] -22 degrees GEMUSE T [place] 14 degrees GEMUSE ECG Interpretation Normal sinus rhythm with sinus arrhythmia Right bundle branch block Abnormal ECG When compared with ECG of 05-MAY-2024 17:47, No significant change was found Confirmed by Otoniel ARRIETA YUFENG ([id number]) on 09/15/2024 4:32:38 PM GEMUSE 09/15/2024 2:16 PM EDT 09/15/2024 4:32 PM EDT Hui Brandt DO ECG ORDERABLES Final Res ult GEMUSE * Troponin I high sensitivity (09/15/2024 2:13 PM EDT) [facility] High Sensitivity Troponin I 6 <=79 ng/L LAB CHEMISTRY METHOD 09/15/2024 3:06 PM EDT [facility] Blood Venous blood specimen / Unknown Venipuncture / Unknown 09/15/2024 2:13 PM EDT 09/15/2024 2:38 PM EDT Narrative [facility] - 09/15/2024 3:06 PM EDT High levels of biotin in samples may falsely decrease hsTroponin values. Use caution when interpreting hsTroponin results in patients taking biotin who exhibit renal impairment (eGFR <60) or in patients taking more than 20 mg/day of biotin. Hui Brandt DO LAB BLOOD ORDERABLES Jayleen l Result Performing Organization Address [facility] Co de Phone Number [facility] [address] [place] [address], [place] [phone] * Ethanol (09/15/2024 2:13 PM EDT) [facility] Ethanol Level <3 0 - 10 mg/dL LAB CHEMISTRY METHOD 09/15/2024 8:25 PM EDT [facility] Blood Venous blood specimen / Unknown Venipuncture / Unknown 09/15/2024 2:13 PM EDT 09/15/2024 2:38 PM EDT us Ely Shaikh ACCOUNTING TUTOR LAB BLOOD ORDERABLES Fin al Result Performing Organization Address [facility]/ZIP Co de Phone Number [facility] [address] [place] [address], [place] [phone] * Hemoglobin A1c (12/24/2016) [facility] Hemoglobin A1C 5.4 % Blood Venous blood specimen / Unknown us Historical Provider LAB BLOOD ORDERABLES Jayleen l Result from Last 3 Months or Most Recently Relevant to Health Maintenance Insurance MEDICARE MEDICAID - [place] Advance Directives * Full Code - Confirmed (Latest Code Status on File) Date Activated Date Inactivated Comments 09/15/2024 8:13 PM 09/19/2024 8:[address] atus was ascertained in the following way: Code status discussion: discussion with patient To update the patient's code status, place a code status order. Do not modify or discontinue any currently active code status orders. * Full Code - Default Date Activated Date Inactivated Comments 09/15/2024 6:32 PM 09/15/2024 8:13 PM This is orde r is used when code status has not been discussed with the patient, or code status is otherwise unknown/unconfirmed To update the patient's code status, place a code status order. Do not modify or discontinue any currently active code status orders. Care Teams Veneer Press Operator Relationship Specialty Start Date End Date Suzan Briscoe MD [address] [place] [address] PCP - General Internal Medicine 04/11/24
--- OUTSIDE RECORDS SUMMARY | 2024-11-30 12:22 | XMS_ITS | Clinical Summary ---
Author Organization [facility] Address [address] [place] [address] Care Team Providers Care Stock Preparation Operator Name Role Phone Unavailable Primary Care [...] Plan of Treatment Not on file Insurance [place] DENTAL [facility] SAFETY NET DENTAL
--- OUTSIDE RECORDS SUMMARY | 2024-11-30 12:22 | XMS_ITS | Clinical Summary ---
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
== END 2024-11-30 10:39 | disposition home or self-care (01) ==
LOC: HO.HKAS 10:07
PROVIDERS: PCP Internal Medicine; Visit Provider Internal Medicine Hypertension Specialist
DX: K74.60 Unspecified cirrhosis of liver (principal); N18.4 Chronic kidney disease, stage 4 (severe); C22.0 Liver cell carcinoma
CPT/HCPCS: 99214

== ENCOUNTER → 2024-11-30 10:06 | Outpatient (BNVA) | payer MEDICARE, MEDICAID, SELFPAY | PROVIDERS: PCP Internal Medicine; Visit Provider Internal Medicine Hypertension Specialist | DX: K74.60 Unspecified cirrhosis of liver (principal); C22.0 Liver cell carcinoma; E11.22 Type 2 diabetes mellitus with diabetic chronic kidney disease; N18.4 Chronic kidney disease, stage 4 (severe); Z98.890 Other specified postprocedural states | CPT/HCPCS: 99212 ==

== ENCOUNTER 2025-02-20 13:00 | Outpatient (REF) | payer MEDICARE, MEDICAID, SELFPAY ==
[2025-02-20 18:21] LABS: MANUAL DIFF FLAG NO
[2025-02-20 18:31] LABS: Hematocrit 25.2 % (42.0-52.0); Hemoglobin 8.2 g/dl (14.0-18.0); Imm Gran Abs Auto 0.18 X10*3/uL (0.00-0.03); Imm Gran Pct Auto 4.3 % (0.0-0.4); Lymphocytes Absolute Auto 0.7 X10*3/uL (1.2-4.9); Mean Corpuscular HGB Conc 32.5 g/dl (31.0-36.0); Mean Corpuscular Hemoglobin 29.8 pg (27.0-33.0); Mean Corpuscular Volume 91.6 fL (80.0-98.0); NRBC Abs Auto 0.000 X10*3/uL (0.0-0.012); NRBC Pct Auto 0.0 /100WBC (0.0-0.2); Red Blood Count 2.75 X10*6/uL (4.60-5.80); White Blood Count 4.2 X10*3/uL (4.8-10.8)
[2025-02-20 18:32] LABS: Platelet Count 87 X10*3/uL (160-400)
[2025-02-20 18:41] LABS: Blood Urea Nitrogen 30 mg/dL (9-16)
== END 2025-02-20 13:01 | disposition home or self-care (01) ==
LOC: HO.HKASLDS 13:00
PROVIDERS: PCP Internal Medicine; Visit Provider Internal Medicine Hypertension Specialist
DX: N18.4 Chronic kidney disease, stage 4 (severe) (principal)
CPT/HCPCS: 36415; 84520; 85025

== ENCOUNTER 2025-02-22 08:57 | Outpatient (AMB) | payer MEDICARE, MEDICAID, SELFPAY ==
--- NOTE | 2025-02-22 09:03 | HO.NEPHOV_ITS ---
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 Shift Required: No Accompanied by: Spouse Allergies acetaminophen (Tylenol) Allergy (Severe, Verified 02/22/25 09:06) Rash and Hives losartan Allergy (Severe, Verified 02/22/25 09:06) Rash and Hives Motrin Allergy (Severe, Uncoded 11/08/24 09:31) Rash and Hives Medication List - Last Reconciled 02/22/25 by Andrew Spangler MD acetaminophen 650 mg PO .Q8 PRN acyclovir 800 mg PO BID allopurinol 100 mg PO DAILY amlodipine 5 mg PO DAILY atorvastatin 20 mg PO DAILY atovaquone mg PO cane As directed citalopram 20 mg PO DAILY docusate sodium 100 mg PO BID magnesium oxide 400 mg PO BID multivitamin with iron (Daily Vites/Iron tablet) 1 tab PO DAILY mycophenolate mofetil 500 mg PO BID pantoprazole (Protonix) 40 mg PO DAILY sennosides (Liz-thomas) 8.6 mg PO BID sodium zirconium cyclosilicate (Lokelma) grams PO tacrolimus (Prograf) 3 mg PO Q12H thiamine HCl (vitamin B1) 50 mg PO DAILY HPI Comments Details: History of Present Illness The patient is a 69 year old male presenting for a nephrology follow-up visit for management of kidney function and anemia post-liver transplantation. His past medical history is significant for chronic alcohol use, cirrhosis of the liver, diabetes mellitus, history of paracentesis, He underwent a DD liver transplant in December 2024. Post-transplant, his creatinine improved from a level of 2.52 in November. Recent labs from Thursday show a hemoglobin of 8.2, indicating persistent anemia. He is currently taking Lokelma for potassium management. The patient also reports having difficulty walking. He has an upcoming appointment at [facility] in March. Results - Labs: - Hemoglobin: 8.2 g/dL (from Thursday). - Creatinine: 0.52 (from November). 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 Chronic kidney disease, stage 4 (severe) Hypertension Foot fracture, right Ribs, multiple fractures Chronic depression PVD (peripheral vascular disease) Iron deficiency anemia Hyperlipidemia Polyp, colonic Liver cirrhosis CVA (cerebral vascular accident) Surgical History History of surgery on wrist History of esophagogastroduodenoscopy (EGD) H/O colonoscopy Family History Father Diabetes mellitus Mother Diabetes mellitus Social History Household Members: Other Household Members Other:: friend Housing: Apartment Alcohol intake: never Patient Tobacco Use Status: Former Tobacco user Tobacco use type: Cigarette e-Cigarette/Vaping Use: Never Used service: No Current occupational status: disabled Cognitive needs: No Hearing needs: No Vision needs: Yes Physical Exam Exam Exam: Physical Exam General: Awake. Comfortable. HENT: Neck supple. Mucosa moist. Pulmonary: Lungs aeration equal. No rales. Cardiology: Heart S1-S2 heard. No gallop. Abdomen: Soft. Non tender. Bowel sounds normal. Neurologic: No involuntary movements. No myoclonus. Extremities: No edema. No rash. Right knee examined due to reported issue. Vital Signs: Last Vital Signs Pulse 76 02/22/25 09:04 BP 134/62 02/22/25 09:04 Pulse Ox 100 02/22/25 09:04 Oxygen Delivery Method Room Air 02/22/25 09:04 BMI result Body Mass Index 20.5 Results Reviewed Nephrology Results: Hgb, (14.0-18.0) 8.2 g/dl L 02/20/25 WBC, (4.8-10.8) 4.2 X10*3/uL L 02/20/25 Plt Count, (160-400) 87 X10*3/uL L Δ 02/20/25 Sodium, (135-145) 135 mmol/L 11/28/24 Potassium, (3.3-5.1) 4.3 mmol/L 11/28/24 Chloride, (96-108) 105 mmol/L 11/28/24 Carbon Dioxide, (22-29) 21 mmol/L L 11/28/24 BUN, (9-16) 30 mg/dL H 02/20/25 Creatinine, (0.5-1.4) 2.52 mg/dL H 11/28/24 Calcium, (8.4-10.2) 8.7 mg/dL 11/28/24 Renal US 06/09/24 Assessment & Plan Assessment & Plan (1) Liver cirrhosis: Comment: ex ETOH, ex IVDA, MRI abd 08/2022 2 liver masses, f/u GI, ?liver transplant Code(s): K74.60 - Unspecified cirrhosis of liver Category: Medical Plan: Follow with GI Paracenthesis PRN (2) Chronic kidney disease, stage 4 (severe): Code(s): N18.4 - Chronic kidney disease, stage 4 (severe) Category: Medical Plan: Another Episode of ERNESTINE which has resolved. (3) Hepatocellular carcinoma: Comment: s/p radiofrequency ablation at [facility] 01/2024, follow-up with [facility] Oncology Code(s): C22.0 - Liver cell carcinoma Category: Medical Plan: Follow up with GI Plan Plan CKD in a setting of Cirrhosis s/p ERNESTINE - multiple episodes Also had Post op ERNESTINE Recheck renal function today 1. Anemia - The patient's hemoglobin remains low at 8.2. - Will obtain repeat blood work, including kidney function tests, today to further evaluate. 2. Hyperkalemia - The patient is currently taking Lokelma. - Will assess today's lab results to determine if an adjustment to the Lokelma dose is necessary, with a goal to discontinue if possible. - Provided dietary counseling to avoid foods high in potassium, including oranges, bananas, potatoes, tomatoes, and nuts. 3. Status Post Liver Transplantation - The patient is 3 months post-operation. - A follow-up visit is scheduled in two months. - The patient will also attend an appointment at [facility] in March. 4. Difficulty Walking - The patient reports difficulty with ambulation. - Will send a referral for physical therapy. Orders: Orders Basic Metabolic Panel Today N18.4 - Chronic kidney disease, stage 4 (severe) PT Evaluation and Treatment Today Z94.4 - Liver transplant status Medications: New food supplemt, lactose-reduced (Ensure Plus) 1 ea PO BID 5,688 mL 1RF food supplemt, lactose-reduced (Ensure oral liquid) 1 ea PO BID 5,688 mL 1RF Coding Level of Care Code Est Pt Level 4 (32278) Diagnoses Liver cirrhosis K74.60 Chronic kidney disease, stage 4 (severe) N18.4 Hepatocellular carcinoma C22.0
[2025-02-22 09:04] VITALS: BP 134/62; PULSE 76; O2SAT 100; BMI 20.5
--- OUTSIDE RECORDS SUMMARY | 2025-02-22 09:37 | XMS_ITS | Clinical Summary ---
Author Organization [facility] Prior to 08/06/24 Address [address] [place] [address] Care Team Providers Care Mold Loft Worker Name Role Phone Suzan Briscoe MD Primary Care Provider [phone] Allergies Active Allergy Reactions Criticality Noted Date [...] age to complete this topic Care Teams Mold Loft Worker Relationship Specialty Start Date End Date Suzan Briscoe MD [address] [place] [address] PCP - General [place] Machine Tender 09/11/22
--- OUTSIDE RECORDS SUMMARY | 2025-02-22 09:39 | XMS_ITS | Encounter Summary ---
[facility] Organization [facility] Address [address] [place] [address] Care Team Providers Care Handbag Stitcher Name Role Phone Suzan Briscoe MD Primary Care Provider [phone] Encounter Details Date Type Department Care Team (Late st Contact Info) Description 10/24/2024 Lab Requisition [facility] - Main Lab [address] [place] [address] Roderick Veliz MD [address] [place] [address] Anemia, unspecified Social History Tobacco Use Types Packs/Day Years Used Date Smoking Tobacco: Former Cigarettes Smokeless Tobacco: Former Interpersonal Safety Answer Date Record ed Physical Abuse Unrecognized value 09/15/2024 Verbal Abuse Unrecognized value 09/15/2024 Sex and Gender Information Value Date Recorded Sex Assigned at Male 04/22/2024 10:51 AM EST Legal Sex Male 3:32 PM EST Gender Identity Male 04/22/2024 10:51 AM EST Sexual Orientation Straight 04/26/2024 12 :12 PM EST documented as of this encounter Plan of Treatment Upcoming Encounters Date Type Department Care Team (Late st Contact Info) Description 02/28/2025 10:45 AM EST Office Visit [facility] Hematology Oncology [address] [place] [address] Ignacio Cohen MD [address] [place] [address] 04/07/2025 2:20 PM EST Office Visit Gastroenterology - [address] [facility] [address] [place] [address] Tnaia Noguera, FRANK [address] [facility] [address] [place] [address] documented as of this encounter Visit Diagnoses Diagnosis Anemia, unspecified documented in this encounter Care Teams Handbag Stitcher Relationship Specialty Start Date End Date Suzan Briscoe MD [address] [place] [phone] PCP - General Internal Medicine 04/11/24 documented as of this encounter
--- OUTSIDE RECORDS SUMMARY | 2025-02-22 09:39 | XMS_ITS | Encounter Summary ---
Author Organization [facility] Address [address] [place] [address] Care Team Providers Care Shredded Filler Cigar Maker Machine Name Role Phone Suzan Briscoe MD Primary Care Provider [phone] Encounter Details Date Type Department Care Team (Late st Contact Info) Description 10/17/2024 Lab Requisition [facility] - Main Lab [address] [place] [address] Roderick Veliz MD [address] [place] [address] Anemia, unspecified Social History Tobacco Use Types [...] Description 02/28/2025 10:45 AM EST Office Visit [facility] Hematology Oncology [address] [place] [address] Ignacio Cohen MD [address] [place] [address] 04/07/2025 2:20 PM EST Office Visit Gastroenterology - [address] [facility] [address] [place] [address] Tania Noguera, FRANK [address] [facility] [address] [place] [address] documented as of this encounter Visit Diagnoses Diagnosis Anemia, unspecified documented in this encounter Care Teams Shredded Filler Cigar Maker Machine Relationship Specialty Start Date End Date Suzan Briscoe MD [address] [place] [phone] PCP - General Internal Medicine 04/11/24 documented as of this encounter
== END 2025-02-22 09:33 | disposition home or self-care (01) ==
LOC: HO.HKAS 08:58
PROVIDERS: PCP Internal Medicine; Visit Provider Internal Medicine Hypertension Specialist
DX: K74.60 Unspecified cirrhosis of liver (principal); N18.4 Chronic kidney disease, stage 4 (severe); C22.0 Liver cell carcinoma
CPT/HCPCS: 99214

== ENCOUNTER 2025-02-22 08:57 | Outpatient (REF) | payer MEDICARE, MEDICAID, SELFPAY ==
[2025-02-22 14:56] LABS: Anion Gap 16 (12-20); Blood Urea Nitrogen 34 mg/dL (9-16); Calcium 9.7 mg/dL (8.4-10.2); Carbon Dioxide 23 mmol/L (22-29); Chloride 104 mmol/L (96-108); Estimated Glomerular Filt Rate 38; Potassium 5.2 mmol/L (3.3-5.1); Sodium 138 mmol/L (135-145)
== END 2025-02-22 08:58 | disposition home or self-care (01) ==
LOC: HO.HKASLDS 08:57
PROVIDERS: PCP Internal Medicine; Visit Provider Internal Medicine Hypertension Specialist
DX: N18.4 Chronic kidney disease, stage 4 (severe) (principal)
CPT/HCPCS: 36415; 80048; 99212